=== PATIENT | male | born 1965 | race African-American/Black ===

== ENCOUNTER 2022-08-13 14:39 | Emergency (ER) | payer OTHER, BC, SELFPAY ==
[2022-08-13 14:44] VITALS: BP 197/116; PULSE 80; RESP 16; TEMP 36.3; O2SAT 99; BMI 25.3
--- NOTE | 2022-08-13 15:51 | CRLHL7_ITS ---
For Patients: As a result of the Century Cures Act, medical imaging exams and procedure reports are released immediately into your electronic medical record. You may view this report before your referring provider. If you have questions, please contact your health care provider. Indication: Base of thumb pain. Technique: Left wrist 3 views. Comparison: None. Findings: Bones: No acute fracture or aggressive osseous lesion. Alignment is normal. Joint spaces: Unremarkable. Soft tissues: Unremarkable. Impression: Unremarkable left wrist. Specifically, the 1st carpometacarpal joint and base of the thumb are unremarkable without significant degenerative changes or acute findings. Dictated by Gilberto Lemus MD @ 08/13/2022 4:57:11 PM (Electronically Signed)
--- NOTE | 2022-08-14 13:01 | ED.UPPEXIN ---
HPI - Extremity Injury (Upper) General Chief Complaint: Extremity Pain/Injury, Upper Stated Complaint: L wrist injury Time Seen by Provider: 08/13/22 15:43 History of Present Illness HPI narrative: 57-year-old man here with complaint of about 2 weeks of increasing pain at his left wrist and thumb. 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 Recently purchased what looks to be a thumb spica splint that appears to be of good quality. He wore this overnight recently and upon removing it experienced much more discomfort and felt like he just could not even move his thumb. He has also noticed some swelling at his radial wrist. There has not been a specific injury sounds more like a repetitive stress kind of situation. Is right-handed. Is not experiencing loss of sensation or altered sensation in his fingers. Had to modify some of his driving a little indicating a callus on the palm of his hand. He has not taken medications for this noting that he would not want to risk his job; this includes medications like ibuprofen even. However he did try some Voltaren cream to uncertain benefit. He did try icing but has been more comfortable with heat. Describes exacerbations of pain that go from the thumb up into the mid forearm. Related Data Home Medications Medication Instructions Recorded Confirmed hydrochlorothiazide 12.5 mg tablet 12.5 mg PO DAILY 08/13/22 08/13/22 lisinopril 40 mg tablet 40 mg PO DAILY 08/13/22 08/13/22 Allergies Allergy/AdvReac Type Severity Reaction Status Date / Time No Known Drug Allergies Allergy Verified 08/13/22 14:49 Review of Systems Status of ROS: Reports: 6 or more systems reviewed and unremarkable except as noted in History and below [facility] Social History Smoking Status: Never smoker Do you use any of these nicotine containing products: None Second hand tobacco smoke exposure: No How often do you have a drink containing alcohol: never How often do you have six or more drinks on one occasion: Never AUDIT-C Alcohol total score: 0 Non-prescribed substance use: denies use service: No Exam Narrative: Exam Narrative: Pleasant. NAD. Favoring his left hand/wrist. Well muscled forearms. Breathing easily. Flexes and extends the left elbow without apparent difficulty. Supinating and pronating the forearm also does not seem to cause much discomfort. There is a subtle swelling at the distal radius. I do not appreciate discrete bony tenderness. No deformity really at the base of the thumb. Tender to palpation over the dorsum of the thumb at the base. Flexion extension of the wrist causes pain. Hanny's positive. Const: Vital Signs, click to edit/add: Vital Signs - 24 hr 08/13/22 14:44 Temperature 97.4 F L Pulse Rate [Right Pulse Oximeter] 80 Respiratory Rate 16 Blood Pressure [Ri ght Upper Arm] 197/116 H Pulse Oximetry 99 Oxygen Delivery Me thod Room Air Documenting provider has reviewed patient's vital signs: yes Course Vital Signs Vital signs: Initial Vital Signs Temperature 97.4 F L 08/13/22 14:44 Temperature Source Temporal Artery Scan 08/13/22 14:44 Pulse Rate 80 08/13/22 14:44 Respiratory Rate 16 08/13/22 14:44 Blood Pressure 197/116 H 08/13/22 14:44 Blood Pressure Mean 143 08/13/22 14:44 Blood Pressure Position Sitting 08/13/22 14:44 Pulse Oximetry 99 08/13/22 14:44 Oxygen Delivery Method Room Air 08/13/22 14:44 Vital Signs Temperature 97.4 F L 08/13/22 14:44 Pulse Rate 80 08/13/22 14:44 Respiratory Rate 16 08/13/22 14:44 Blood Pressure 197/116 H 08/13/22 14:44 Pulse Oximetry 99 08/13/22 14:44 Oxygen Delivery Method Room Air 08/13/22 14:44 Temperature 97.4 F L 08/13/22 14:44 Pulse Rate 80 08/13/22 14:44 Respiratory Rate 16 08/13/22 14:44 Blood Pressure 197/116 H 08/13/22 14:44 Pulse Oximetry 99 08/13/22 14:44 Oxygen Delivery Method Room Air 08/13/22 14:44 MDM - Extremity Injury (Upper) MDM Narrative Medical decision making narrative: I suspect more of a de Quervain tenosynovitis. It sounds like Mr. Zapata has this as a question as well. Might be reasonable to do basic x-ray given his work; whether there might be some arthritic change the base of the thumb in particular. X-ray of the left wrist reviewed by me does not show excessive osteoarthritic change. No acute bony abnormality. Maintained joint spaces. I did reach out to Orthopedics to arrange follow-up. I would consider Mr. Zapata at this point a candidate for steroid injection in the extensor tendon. Would have him try to isolate with thumb spica splint. Unfortunately this makes it difficult to do his job; sounds like particularly loading and unloading; otherwise he has managed to compensate. See patient discharge plan Discharge Plan Discharge Clinical Impression: Pain of left thumb, De Quervain's syndrome (tenosynovitis) Patient Disposition: Home, Self-Care Condition: Stable Additional Instructions: I would consider icing. I like those screw top ice bags --fill with ice and water. Ice 2- 3 times daily over the next few days. I understand that this might not be the most comfortable thing to do. I think heat though might make this worse. Unfortunately orthopedics clinic was closed already. I did speak with Orthopedics today; specifically LEILA Toure. Anticipate a call from them tomorrow. If you do not hear from them by noon, feel free to call them. Phone number [phone] I would wear your thumb spica splint as it is persistent use that also aggravates, creates more inflammation. I anticipate you receiving a steroid injection which should settle down inflammation and quicken healing. I support your use of ibuprofen, naproxen, acetaminophen if necessary in fact would recommend either the ibuprofen or naproxen regularly in the short term though I understand your concerns. Perhaps the Voltaren cream topically can also be helpful. Prescriptions: No Action lisinopril 40 mg tablet 40 mg PO DAILY hydrochlorothiazide 12.5 mg tablet 12.5 mg PO DAILY Follow Up/Referrals: Jeff Carlos MD [Primary Care Provider] - Stand Alone Forms: [employer] Info Instructions
== END 2022-08-13 17:12 | disposition home or self-care (01) ==
PROVIDERS: Emergency Provider Family Medicine; PCP Family Medicine
DX: M65.4 Radial styloid tenosynovitis [de Quervain] (principal)
CPT/HCPCS: 73110; 99283; 99284

== ENCOUNTER 2022-09-14 10:20 | Emergency (ER) | payer BC, SELFPAY ==
[2022-09-14] VITALS (18 sets, daily range): BP systolic 103–128; BP diastolic 72–104; PULSE 62–84; RESP 18; TEMP 36.4; O2SAT 91–99; BMI 25.3
--- NOTE | 2022-09-14 10:50 | CRLHL7_ITS ---
For Patients: As a result of the Century Cures Act, medical imaging exams and procedure reports are released immediately into your electronic medical record. You may view this report before your referring provider. If you have questions, please contact your health care provider. INDICATION: Chest pain. The patient passed out at work yesterday. TECHNIQUE : Two-view chest x-ray. FINDINGS: Clear lungs. Normal heart size and pulmonary vascularity. The included skeleton is unremarkable. IMPRESSION: Negative two-view chest x-ray. Dictated by Emmanuel Allen MD @ 09/14/2022 11:37:09 AM (Electronically Signed)
--- NOTE | 2022-09-14 11:07 | ED.CHESTPAIN ---
HPI - Chest Pain General Date Seen: 09/14/22 Chief Complaint: Chest Pain Stated Complaint: Passed out yesterday, chest discomfort earlier Time Seen by Provider: 09/14/22 10:39 Source: patient Mode of arrival: ambulatory Limitations: no limitations History of Present Illness HPI narrative: Patient is a 49-year-old gentleman who presents here for evaluation of chest pain and syncope, he had chest pain with a syncopal episode yesterday, he initially went to the [facility], but was sent over to the emergency room for further assessment. He came here by private vehicle, he did have some chest discomfort in the morning. Yesterday had the chest discomfort no and then started walking, and had a syncopal episode where he passed out for few seconds. He notes that he did not hit his head, came to and otherwise felt normal after this. He generally gets the chest pain when he sits down lays back, it has never been exertionally base. He takes Pepto-Bismol and says the pain gets better, it almost feels like it is acid indigestion. He reminds me 2 years ago in 2020 he came in for a similar episode, also tied to syncope, his troponins at that point were elevated, and he went to [facility] for evaluation. There he had a CT angiogram which showed that he had normal coronary arteries, and they sent him home. They told him that he should take aspirin but he is not taking these. Cardiac risk factors include a history of hypertension, family history of coronary artery disease, at an early age. Smoking, and male. He does not have hyperlipidemia, or diabetes. Denies a history of illicit drug use. No previous history of pulmonary embolism, he is not taking any medications for the heartburn. MD complaint: chest pain Pain location: substernal and right chest Severity: moderate Relieving factors: antacids Exacerbating factors: supine Treatment prior to arrival: none Risk Factors Coronary artery disease risk factors: smoking history and hypertension Thoracic aortic dissection risk factors: none Related Data Home Medications Medication Instructions Recorded Confirmed hydrochlorothiazide 12.5 mg tablet 12.5 mg PO DAILY 08/13/22 09/13/22 lisinopril 40 mg tablet 40 mg PO DAILY 08/13/22 09/13/22 Allergies Allergy/AdvReac Type Severity Reaction Status Date / Time No Known Drug Allergies Allergy Verified 09/13/22 09:03 Review of Systems Status of ROS Reports: 10 or more systems reviewed and unremarkable except as noted in History and below [facility] Medical History Non-ST elevation myocardial infarction (NSTEMI) ?I21.4 - Non-ST elevation (NSTEMI) myocardial infarction (ICD-10) Social History Smoking Status: Current every day smoker What tobacco products do you use: cigarettes Smoking packs per day: 0.25 Smoking cigarettes per day: 5.0 Years smoked: 40 Smoking pack-years: 10.00 Do you use any of these nicotine containing products: None Second hand tobacco smoke exposure: Yes How often do you have a drink containing alcohol: never How often do you have six or more drinks on one occasion: Never AUDIT-C Alcohol total score: 0 Non-prescribed substance use: denies use service: No Exam Narrative Exam Narrative: Patient is seen in room 5, very nice gentleman. He is wearing a splint on his left arm, consistent with tenosynovitis. Patient is speaking normally, no problem with slurring words, oriented x3. Head eyes ears nose and throat exam show equal pupils, no scleral icterus, extraocular muscles are normal, no facial droop, speech is normal, trachea normal and midline. Thyroid normal midline palpable not enlarged. Chest shows symmetrical rise bilaterally, normal auscultation with no wheezes, no increased work of breathing, no overt bruising or lesions seen, no tenderness is noted on auscultation. Heart sounds normal with no S3-S4 no murmurs clicks or gallops. Abdomen shows no obvious masses or hepatosplenomegaly, no organomegaly, bowel sounds are normal in all quadrants. No tenderness is noted also in all quadrants. Upper and lower extremities show normal power, normal range of motion, pulses are normal, sensations normal, fine motor movements are normal, pelvis is stable to rocking. Cervical spine shows normal range of motion, and palpably not tender. Thoracic spine shows normal range of motion, and palpably not tender, lumbar spine shows no tenderness to palpation percussion and is otherwise normal range of motion. Skin shows no rashes, petechiae or eccymosis. Const Vital Signs, click to edit/add: Vital Signs - 24 hr 09/14/22 10:33 09/14/22 10:46 09/14/22 11:00 Temperature 97.6 F Pulse Rate 84 79 Pulse Rate [Pulse Oximeter] 77 Respiratory Rate 18 Blood Pressure Blood Pressure [Left Upper Arm] 125/78 Pulse Oximetry 97 96 99 Oxygen Delivery Method Room Air 09/14/22 11:01 09/14/22 11:02 09/14/22 11:30 Temperature Pulse Rate 74 75 70 Pulse Rate [Pulse Oximeter] Respiratory Rate Blood Pressure 105/72 Blood Pressure [Left Upper Arm] Pulse Oximetry 99 99 99 Oxygen Delivery Method 09/14/22 11:31 09/14/22 11:32 09/14/22 12:00 Temperature Pulse Rate 70 71 67 Pulse Rate [Pulse Oximeter] Respiratory Rate Blood Pressure 103/77 Blood Pressure [Left Upper Arm] Pulse Oximetry 99 99 98 Oxygen Delivery Method 09/14/22 12:01 09/14/22 12:02 09/14/22 12:30 Temperature Pulse Rate 68 67 62 Pulse Rate [Pulse Oximeter] Respiratory Rate Blood Pressure 122/84 Blood Pressure [Left Upper Arm] Pulse Oximetry 98 97 99 Oxygen Delivery Method 09/14/22 12:31 09/14/22 13:00 09/14/22 13:01 Temperature Pulse Rate 73 62 69 Pulse Rate [Pulse Oximeter] Respiratory Rate Blood Pressure 113/83 128/99 H Blood Pressure [Left Upper Arm] Pulse Oximetry 99 98 99 Oxygen Delivery Method 09/14/22 13:02 09/14/22 13:30 09/14/22 13:31 Temperature Pulse Rate 65 71 73 Pulse Rate [Pulse Oximeter] Respiratory Rate Blood Pressure 123/104 H Blood Pressure [Left Upper Arm] Pulse Oximetry 91 99 99 Oxygen Delivery Method Documenting provider has reviewed patient's vital signs: yes Course Course Hospital Course: Patient has remained pain-free troponins x2 are negative, point of care ultrasound did not show any acute abnormalities, of his heart. EKG was normal, with no change from previous, D-dimer was very minimally elevated at 0.51 but age adjusted was normal. I spoke to cardiology at [facility] Dr.Al Still about the patient, he suggested a outpatient cardiac follow-up, and also his Zio patch repeated. An echo. I then spoke to the patient's primary care physician at [facility], he will follow this up and get the patient scheduled, will start him on Prilosec, 20 mg a day, he has further episodes or issues then he will come back and be seen. Vital Signs Vital signs: Initial Vital Signs Respiratory Effort Normal 09/14/22 10:21 Respiratory Depth Normal 09/14/22 10:21 Respiratory Pattern Normal 09/14/22 10:21 Vital Signs Temperature 97.6 F 09/14/22 10:33 Pulse Rate 77 09/14/22 10:33 Respiratory Rate 18 09/14/22 10:33 Blood Pressure 125/78 09/14/22 10:33 Pulse Oximetry 97 09/14/22 10:33 Oxygen Delivery Method Room Air 09/14/22 10:33 Temperature 97.6 F 09/14/22 10:33 Pulse Rate 73 09/14/22 13:31 Respiratory Rate 18 09/14/22 10:33 Blood Pressure 123/104 H 09/14/22 13:31 Pulse Oximetry 99 09/14/22 13:31 Oxygen Delivery Method Room Air 09/14/22 10:33 MDM - Chest Pain MDM Narrative Medical decision making narrative: During the evaluation of this patient I considered multiple differential diagnosis is. The life-threatening differential diagnosis include coronary disease/NC, pulmonary embolism, pneumothorax, pneumonia, and aortic dissection. Other differential diagnosis included but were not limited to pericarditis, myocarditis, chest wall pain, GERD, esophageal rupture, rib fracture contusion, pleurisy, as well as other etiologies. Life-threatening differential diagnosis considered include: Cardiac arrhythmia, acute blood loss, and intracranial bleed. Other differential diagnosis include but are not limited to vasovagal syncope, orthostatic syncope, seizure, as well as other etiologies Medical Records Data Attestation: I reviewed the patient's medical records. Lab Data Attestation: I reviewed the patient's lab results. Labs: Lab Results 09/14/22 09/14/22 Range/Units 11:05 12:55 WBC 8.64 (4.50-11.00) K/uL RBC 5.03 (4.30-5.90) m/uL Hgb 15.3 (13.5-17.5) gm/dL Hct 46.0 (37.0-53.0) % MCV 92 (80-100) fL MCH 30 (26-34) pg MCHC 33 (32-36) gm/dL RDW Coeff of Garrett 13.1 (11.5-15.5) % Plt Count 277 (140-440) K/uL Neut % (Auto) 66.9 (42.0-72.0) % Lymph % (Auto) 24.5 (20-44) % Crawford % (Auto) 6.8 (0.0-11.0) % Eos % (Auto) 1.5 (0.0-7.0) % Baso % (Auto) 0.2 (0.0-3.0) % Neut # (Auto) 5.77 (1.7-7.0) K/uL Lymph # (Auto) 2.12 (0.90-2.90) K/uL Crawford # (Auto) 0.60 (0.00-0.90) K/UL Eos # (Auto) 0.13 (0.00-0.50) K/uL Baso # (Auto) 0.02 (0.00-0.30) K/uL INR 0.99 (0.91-1.10) APTT 32 (23-33) Seconds D-Dimer Quant (PE/DVT) 0.51 H (0.00-0.50) ug/ml Sodium 139 (135-149) mmol/L Potassium 4.5 (3.6-5.1) mmol/L Chloride 107 (96-114) mmol/L Carbon Dioxide 25 (20-32) mmol/L BUN 28 (7-30) mg/dL Creatinine 1.1 (0.5-1.5) mg/dL Estimated Creat Clear 85.11 Estimated GFR 78 ml/min Glucose 115 (60-115) mg/dL Calcium 9.5 (8.4-10.6) mg/dL Total Bilirubin 0.4 (0.1-1.5) mg/dL Direct Bilirubin 0.2 (0.0-0.5) mg/dL AST 26 (12-35) U/L ALT 32 (4-50) U/L Alkaline Phosphatase 86 (40-150) U/L C-Reactive Protein 0.8 (0.5-1.0) mg/dL NT-Pro-B Natriuret Pep 53 pg/mL Total Protein 7.7 (6.0-8.3) g/dL Albumin 4.2 (3.3-5.0) g/dL Lipase 66 (23-300) U/L SARS-CoV-2 (PCR) Negative SARS-CoV-2 (Negative) Influenza Type A (PCR) Negative PCR FLU A (Negative) Influenza Type B (PCR) Negative PCR FLU B (Negative) RSV (PCR) Negative PCR RSV (Negative) POC Troponin I 0.00 L 0.00 L (0.01-0.04) ng/ml Imaging Data Chest x-ray: Attestation: I have reviewed the pertinent imaging results. My impression: No acute finding Radiologist's impression: Patient: STEPHANIE GALEANO Facility:?[facility] Patient ID:?[id number] Site Patient ID:?[id number]. Site :?[id number] Study:?XRay Chest 2V-09/14/2022 11:21:27 AM Ordering Physician:Radha Loja Final Report: INDICATION: Chest pain. The patient passed out at work yesterday. TECHNIQUE : Two-view chest x-ray. FINDINGS: Clear lungs. Normal heart size and pulmonary vascularity. The included skeleton is unremarkable. IMPRESSION: Negative two-view chest x-ray. Dictated by Emmanuel Allen MD @ 09/14/2022 11:37:09 AM (Electronic Signature) ECG Data Attestation: I personally reviewed and interpreted this ECG as follows: ECG interpretation date: 09/14/22 ECG interpretation time: 11:15 Prior ECG tracings: available for review Interpretation: EKG shows normal sinus rhythm, no acute ST wave changes notable. QRS QT and SD intervals are normal, comparison to previous EKG no acute changes. Discharge Plan Discharge Clinical Impression: Syncope, Gastroesophageal reflux disease, Chest pain Patient Disposition: Home, Self-Care Condition: Stable Instructions: Chest Pain (DC), Syncope (ED), Noncardiac Chest Pain (ED) Additional Instructions: Home rest would recommend smoking cessation, I also think that taking Prilosec 20 mg a day would be a good thing here for your stomach, please take this for 30 days in know that it takes probably 5-6 days to really start working. Slowing down on caffeine and alcohol or also good things to do help with this. For the reason of the passing out, I spoke to Cardiology and they would like you to repeat the Zio patch, and also get a formal echo, I did speak with [facility], and get you set up for follow-up for this. Return here if increasing chest pain shortness of breath or other symptoms such as passing out. Prescriptions: No Action lisinopril 40 mg tablet 40 mg PO DAILY hydrochlorothiazide 12.5 mg tablet 12.5 mg PO DAILY Follow Up/Referrals: Jeff Carlos MD [Referring] - Stand Alone Forms: [facility] Info Instructions Procedures Ultrasound Cardiac exam #1: Anatomical areas examined: subxiphoid, parasternal long, parasternal short and apical 4 chamber Indications: chest pain Exam type: limited transthoracic echocardiogram Impression: negative exam
[2022-09-14 11:19] LABS: Basophils Absolute Auto 0.02 K/uL (0.00-0.30); Basophils Percent Auto 0.2 % (0.0-3.0); Eosinophils Absolute Auto 0.13 K/uL (0.00-0.50); Eosinophils Percent Auto 1.5 % (0.0-7.0); Hemoglobin* 15.3 gm/dL (13.5-17.5); Immature Granulocytes Abs Auto 0.01 K/uL (0.00-0.30); Immature Granulocytes Pct Auto 0.1 %; Lymphocytes Absolute Auto 2.12 K/uL (0.90-2.90); Lymphocytes Percent Auto 24.5 % (20-44); Mean Corpuscular HGB Conc 33 gm/dL (32-36); Mean Corpuscular Hemoglobin 30 pg (26-34); Mean Corpuscular Volume 92 fL (80-100); Monocytes Percent Auto 6.8 % (0.0-11.0); Neutrophils Absolute Auto 5.77 K/uL (1.7-7.0); Neutrophils Percent Auto 66.9 % (42.0-72.0); Platelet Count* 277 K/uL (140-440); RDW Coefficient of Variation % 13.1 % (11.5-15.5); Red Blood Count 5.03 m/uL (4.30-5.90); White Blood Count* 8.64 K/uL (4.50-11.00)
[2022-09-14] MEDS: PANTOPRAZOLE SODIUM 40 MG INJ IVP (11:24)
[2022-09-14] MEDS: ASPIRIN 81 MG TAB.CHEW 324 MG PO (11:24)
[2022-09-14] MEDS: 0.9 % SODIUM CHLORIDE 1000 ml 1,000 ML IV (11:25)
[2022-09-14 11:32] LABS: Albumin* 4.2 g/dL (3.3-5.0); Chloride* 107 mmol/L (96-114)
[2022-09-14 11:33] LABS: INR 0.99 (0.91-1.10); Potassium* 4.5 mmol/L (3.6-5.1); Prothrombin Time 13.7 Seconds; Sodium* 139 mmol/L (135-149)
[2022-09-14 11:34] LABS: Creatinine* 1.1 mg/dL (0.5-1.5); Est. Creatinine Clearance* 85.11; Estimated Glomerular Filt Rate 78 ml/min; Partial Thromboplastin Time* 32 Seconds (23-33)
[2022-09-14 11:35] LABS: Alanine Aminotransferase* 32 U/L (4-50); Alkaline Phosphatase* 86 U/L (40-150); Aspartate Amino Transferase* 26 U/L (12-35); Bilirubin Direct* 0.2 mg/dL (0.0-0.5); Bilirubin Total* 0.4 mg/dL (0.1-1.5); Blood Urea Nitrogen* 28 mg/dL (7-30); Carbon Dioxide* 25 mmol/L (20-32); Glucose* 115 mg/dL (60-115); Lipase* 66 U/L (23-300); Total Protein* 7.7 g/dL (6.0-8.3)
[2022-09-14 11:36] LABS: Calcium* 9.5 mg/dL (8.4-10.6); D Dimer Quantitative* 0.51 ug/ml (0.00-0.50)
[2022-09-14 11:38] LABS: C Reactive Protein* 0.8 mg/dL (0.5-1.0)
[2022-09-14 11:48] LABS: NT Pro B Type NatriureticPept* 53 pg/mL
[2022-09-14 11:59] LABS: PCR FLU A Negative PCR FLU A (Negative); PCR FLU B Negative PCR FLU B (Negative); PCR RSV Negative PCR RSV (Negative)
[2022-09-14 12:04] LABS: Slide Review Reflex No
[2022-09-14 12:08] LABS: SARS PCR* Negative SARS-CoV-2 (Negative)
== END 2022-09-14 14:11 | disposition home or self-care (01) ==
PROVIDERS: Emergency Provider Family Medicine; PCP Student in an Organized Health Care Education/Training Program
DX: R07.9 Chest pain, unspecified (principal); R55 Syncope and collapse; K21.9 Gastro-esophageal reflux disease without esophagitis
CPT/HCPCS: 36415; 71046; 80048; 80076; 83690; 83880; 84484; 85025; 85379; 85610; 85730; 86140; 87631; 93005; 93308; 96361; 96374; 99284; 99285; A9270; C9113; J7030

== ENCOUNTER 2022-11-02 08:30 | Outpatient (RCR) | payer OTHER, BC, SELFPAY | END 2023-01-18 15:52 | disposition home or self-care (01) | PROVIDERS: PCP Family Medicine; Visit Provider Physician Assistant Surgical | DX: M65.4 Radial styloid tenosynovitis [de Quervain] (principal); Z51.89 Encounter for other specified aftercare | CPT/HCPCS: 97033; 97035; 97140; 97165; 97530 ==

== ENCOUNTER 2022-12-05 06:49 | Day surgery (SDC) | payer OTHER, BC, SELFPAY ==
[2022-12-05] VITALS (10 sets, daily range): BP systolic 122–160; BP diastolic 83–99; PULSE 61–80; RESP 16; TEMP 36.3; O2SAT 98–100; BMI 25.2
--- NOTE | 2022-12-05 07:14 | SUR.PREOP ---
SAME DAY SURGERY LOCAL INJECTION SITE VERIFICATION WAS PERFORMED BY SURGEON/PA AND PATIENT PRIOR TO LOCAL ANESTHETIC BEING INJECTED TO OPERATIVE SITE.
[2022-12-05] MEDS: ETHYL CHLORIDE 1 APPLICATION 1 APPLIC TOPICAL (07:15)
[2022-12-05] MEDS: BUPIVACAINE 0.5% 30 ML INJECTION (07:15)
--- NOTE | 2022-12-05 08:07 | P.ORPRC_ITS ---
Procedure Note Date of procedure: 12/05/22 Procedure: PREOPERATIVE DIAGNOSES: 1. Left de Quervain tenosynovitis-recalcitrant to nonoperative management POSTOPERATIVE DIAGNOSES: 1. Left de Quervain tenosynovitis-recalcitrant to nonoperative management NAME OF OPERATION: 1. Left de Quervain open 1st dorsal extensor compartment release with tenosynovectomy SURGEON: Dwight Angel MD COIL SHAPER: Mesfin Landrum PA-C - Of note, an certified surgical tech/first assistant was critical for this case to aide in patient positioning, limb manipulation, tissue retraction, closure, & splinting. ANESTHESIA: Local anesthetic (via 50:50 mixture of 0.5% bupivacaine plain and 2% lidocaine with epi) 8ml total EBL: 2 mL IMPLANTS: None. TOURNIQUET: None INDICATIONS: The patient is a pleasant, 57-year-old male who has battled left de Quervain tenosynovitis for a number of months. They have tried and failed nonoperative management including cortisone injection, bracing, medicines, ice, activity modification, etc. Therefore, surgery was indicated. FINDINGS: Abundant tenosynovitis along the left upper extremity 1st dorsal extensor compartments. Thickening to the 1st compartment sheath. A sub sheath between the APL and EPB was encountered. PROCEDURE: Following a thorough discussion of risks, benefits, and alternatives, consent was obtained and the operative extremity was marked. The patient was brought to the operating room and placed supine on the operating table. Induction of anesthesia was achieved. Appropriate time out was performed identifying proper patient, site and procedure. The left upper extremity was prepped and draped in the appropriate sterile fashion using ChloraPrep prep. A longitudinal incision was made just proximal to the radial styloid. Sharp incision through skin and blunt dissection through subcutaneous tissue allowed us to identify and protect the crossing neurologic structures including the superficial branch of the radial nerve. The 1st dorsal extensor compartment was released on the more dorsal aspect. EPL and APB tendons were found to be within their own compartments. These were completely released and the tenosynovitis was resected along the tendons. The intervening septum was resected. At this stage, the wound was thoroughly irrigated with normal saline. Closure performed with 3-0 Vicryl subcutaneous and 4-0 Monocryl for subcuticular closure. Dressings were applied. The patient was awoken from anesthesia and transferred to PACU in stable condition. PLAN: 1. Elevate operative extremity. 2. Ice, acetominphen, ibuprofen, and/or oxycodone PRN. 3. Follow up with PA visit in 7-10 days for wound check and OT initiation PRN.
[2022-12-05] MEDS: BUPIVACAINE 0.5% 30 ML 20 ML INJECTION (08:10)
== END 2022-12-05 08:32 | disposition home or self-care (01) ==
PROVIDERS: PCP Student in an Organized Health Care Education/Training Program; Visit Provider Orthopaedic Surgery Sports Medicine
PROC: (CPT 25000; principal; 2022-12-05 07:45)
DX: M65.4 Radial styloid tenosynovitis [de Quervain] (principal)
CPT/HCPCS: 25000; J0665

== ENCOUNTER 2023-04-09 07:30 | Outpatient (RCR) | payer OTHER, SELFPAY | END 2023-08-07 23:59 | disposition home or self-care (01) | PROVIDERS: PCP Student in an Organized Health Care Education/Training Program; Visit Provider Physician Assistant Surgical | DX: Z02.6 Encounter for examination for insurance purposes (principal); M65.4 Radial styloid tenosynovitis [de Quervain]; Z51.89 Encounter for other specified aftercare | CPT/HCPCS: 97035; 97110; 97140; 97165; 97530; X5282 ==

== ENCOUNTER 2023-09-28 12:04 | Outpatient (CLI) | payer BC, SELFPAY ==
--- OUTSIDE RECORDS SUMMARY | 2023-09-29 05:59 | XMS_ITS | Clinical Summary ---
Author Name Unknown Organization [facility] Address [place], [place] [address] Care Team Providers Care Narrow Fabric Loom Fixer Name Role Phone Laci Davis DO Primary Care Provider [phone] Allergies No known active allergies Medications Medication [...] patch, one 5 sec run Non-ST elevation [place] (NSTEMI) 04/27/2021 Chronic pain of right knee [...] Name Status Comments Brother 1 (Age 57) [place] Brother 2 Alive Daughter 1 Becka Alive Daughter 2 Mystique Alive Father (Age 60) [place] Maternal Grandfather Maternal Grandmother Mother Other Unknown [...] DT Respiratory Rate 16 06/13/2017 2:42 PM DIRECTOR OF RETAIL Oxygen Saturation 100% 09/26/2021 3:27 PM CDT [...] REFLEX MEASURED LDL Routine 04/28/2021 10:01 AM DIRECTOR OF RETAIL Family history of early CAD from Last 3 Months or Most Recently Relevant to Health Maintenance Results * (ABNORMAL) LIPID PANEL W REFLEX MEASURED LDL (04/28/2021 10:01 AM DIRECTOR OF RETAIL) CHOLESTEROL,TOTAL 203(H) 100 - 199 mg/dL 04/28/2021 5:50 PM DIRECTOR OF RETAIL [facility] TRAL LABORATORY TRIGLYCERIDES 163(H) <150 mg/dL 04/28/2021 5:50 PM DIRECTOR OF RETAIL [facility] HDL CHOLESTEROL 32(L) >40 mg/dL 5:50 PM DIRECTOR OF RETAIL [facility] TRAL LABORATORY NON-HDL CHOLESTEROL 171(H) <145 mg/dl 04/28/2021 5:50 PM DIRECTOR OF RETAIL [facility] CHOL/HDL RATIO 6.34(H) <4.50 04/28/2021 5:50 PM DIRECTOR OF RETAIL [facility] TR[facility] LDL CHOLESTEROL 138(H) <=130 mg/dL 04/28/2021 5:50 PM DIRECTOR OF RETAIL [facility] TR[facility] VLDL CHOLESTEROL 33(H) <=30 mg/dL 04/28/2021 5:50 PM DIRECTOR OF RETAIL [facility] TR[facility] PROVIDER ORDERED STATUS RANDOM 04/28/2021 5:50 PM DIRECTOR OF RETAIL [facility] TR[facility] LABORAT[facility] Blood BLOOD SPECIMEN / Unknown Butterfly / Unknown 04/28/2021 10:01 AM DIRECTOR OF RETAIL 04/28/2021 10:01 AM DIRECTOR OF RETAIL Laci Davis DO [facility] [address] [place] [address], from Last 3 Months or Most Recently Relevant to Health Maintenance Care Teams Narrow Fabric Loom Fixer Relationship Specialty Start Date End Date Laci Davis [place] [address] [address] PCP - General Family Practice 09/14/22
== END 2023-09-28 12:05 | disposition home or self-care (01) ==
LOC: AMB 09-29 05:57
PROVIDERS: PCP Student in an Organized Health Care Education/Training Program; Visit Provider Family Medicine
DX: R07.89 Other chest pain (principal)
CPT/HCPCS: A0425; A0427

== ENCOUNTER 2023-09-28 12:34 | Emergency (ER) | payer BC, SELFPAY ==
[2023-09-28] VITALS (14 sets, daily range): BP systolic 107–120; BP diastolic 72–93; PULSE 72–91; RESP 16; TEMP 35.3; O2SAT 93–97; BMI 25.1
--- NOTE | 2023-09-28 12:44 | ED_ITS ---
HPI - Chest Pain General Chief Complaint: Chest Pain Stated Complaint: chest pain Time Seen by Provider: 09/28/23 12:34 History of Present Illness HPI narrative: This 58-year-old male comes in by ambulance from urgent care where he presented with report of chest pains that were occurring and lasting for about 2 or 3 minutes. He states that he does have a history of prior coronary artery disease and there is a report of an NSTEMI in the past however he states he has not had any angiogram. He is taking some blood pressure medications. Prior to today he was not having any chest pain but his symptoms today are similar to what he had before when he had coronary artery syndrome in the past. Today he was doing some moderately strenuous activity when chest pain came on. He states that it has been coming and going since then. He reports some diaphoresis, lightheadedness, and shortness of breath. He did not have any nausea or vomiting. Upon arrival here he states that he is currently having chest discomfort at 6/10 in severity. Related Data Home Medications Medication Instructions Recorded Confirmed lisinopril 40 mg tablet 40 mg PO DAILY 08/13/22 09/28/23 ibuprofen 200 mg capsule 400 mg PO Q8H PRN 12/18/22 09/28/23 hydrochlorothiazide 12.5 mg tablet 25 mg PO DAILY 09/28/23 09/28/23 Previous Rx's Medication Instructions Recorded rosuvastatin 10 mg tablet (Crestor) 10 mg PO DAILY #30 tabs 09/28/23 Allergies Allergy/AdvReac Type Severity Reaction Status Date / Time No Known Drug Allergies Allergy Verified 09/28/23 12:56 Review of Systems Status of ROS Reports: 10 or more systems reviewed and unremarkable except as noted in History and below Narrative Constitutional: No fevers, no weight gain or loss. Eyes: No discharge. No vision changes. HENT: No congestion, no sore throat, no ear pain. Cardiovascular: No palpitations. Chest pain as described above. Respiratory: No shortness of breath, no wheezes, no cough. Gastrointestinal: No abdominal pain, no vomiting, no diarrhea. Genitourinary: No dysuria, no hematuria. Musculoskeletal: Normal range of motion. Skin: No rashes, no pruritis. Neurological: No dizziness, weakness, sensory change, speech change. Endo/Heme/Allergies: No bruising or bleeding. No polydipsia. Pysch: no suicidality, no anxiety, no insomnia. All other systems reviewed and are negative. [facility] Medical History Non-ST elevation myocardial infarction (NSTEMI) ?I21.4 - Non-ST elevation (NSTEMI) myocardial infarction (ICD-10) Surgical History De Quervain's tenosynovitis, left (12/05/22) ?M65.4 - Radial styloid tenosynovitis [de Quervain] (ICD-10) Social History Smoking Status: Current every day smoker What tobacco products do you use: cigarettes Smoking packs per day: 0.25 Smoking cigarettes per day: 5.0 Years smoked: 40 Smoking pack-years: 10.00 Do you use any of these nicotine containing products: None Second hand tobacco smoke exposure: Yes How often do you have a drink containing alcohol: never How often do you have six or more drinks on one occasion: Never AUDIT-C Alcohol total score: 0 Non-prescribed substance use: denies use service: No Exam Narrative Exam Narrative: Constitutional: Well-developed, well-nourished, no acute distress. HEENT: Normocephalic, atraumatic. Neck: Normal range of motion. Nontender. Supple. Heart: Regular. No murmurs. Normal rate. Intact distal pulses. Lungs: Clear to auscultation. No wheezes, rhonchi, or rales. Abdomen: Normal bowel sounds. Nontender. No rebound tenderness. Genitalia: Deferred. Back: No midline tenderness. Normal range of motion. Extremities: Normal range of motion. No injury. Skin: Intact. No rash. Warm. No erythema or pallor. Neurologic: No altered sensation. No weakness. Alert and oriented. Psychiatric: No suicidality. No anxiety or depression. No insomnia. Nursing notes and vitals signs are reviewed. Const Vital Signs, click to edit/add: Vital Signs - 24 hr 09/28/23 12:57 09/28/23 12:59 09/28/23 13:00 Temperature 95.6 F L Pulse Rate 81 85 Pulse Rate [Pulse Oximeter] 89 Respiratory Rate 16 Blood Pressure Blood Pressure [Left Upper Arm] 111/76 Pulse Oximetry 95 94 94 Oxygen Delivery Method Room Air 09/28/23 13:00 09/28/23 13:02 09/28/23 13:03 Temperature Pulse Rate 81 83 Pulse Rate [Pulse Oximeter] Respiratory Rate Blood Pressure 114/74 Blood Pressure [Left Upper Arm] Pulse Oximetry 97 95 97 Oxygen Delivery Method 09/28/23 13:15 09/28/23 13:17 09/28/23 13:30 Temperature Pulse Rate 87 72 82 Pulse Rate [Pulse Oximeter] Respiratory Rate Blood Pressure 119/90 H Blood Pressure [Left Upper Arm] Pulse Oximetry 94 97 95 Oxygen Delivery Method 09/28/23 13:31 09/28/23 13:45 09/28/23 13:47 Temperature Pulse Rate 77 91 82 Pulse Rate [Pulse Oximeter] Respiratory Rate Blood Pressure 107/72 115/85 Blood Pressure [Left Upper Arm] Pulse Oximetry 96 97 97 Oxygen Delivery Method 09/28/23 14:00 09/28/23 14:01 Temperature Pulse Rate 85 83 Pulse Rate [Pulse Oximeter] Respiratory Rate Blood Pressure 120/93 H Blood Pressure [Left Upper Arm] Pulse Oximetry 96 93 Oxygen Delivery Method Course Vital Signs Vital signs: Initial Vital Signs Respiratory Effort Normal, Spontaneous 09/28/23 12:43 Respiratory Depth Normal 09/28/23 12:43 Respiratory Pattern Normal 09/28/23 12:43 Vital Signs Temperature 95.6 F L 09/28/23 12:57 Pulse Rate 89 09/28/23 12:57 Respiratory Rate 16 09/28/23 12:57 Blood Pressure 111/76 09/28/23 12:57 Pulse Oximetry 95 09/28/23 12:57 Oxygen Delivery Method Room Air 09/28/23 12:57 Temperature 95.6 F L 09/28/23 12:57 Pulse Rate 83 09/28/23 14:01 Respiratory Rate 16 09/28/23 12:57 Blood Pressure 120/93 H 09/28/23 14:01 Pulse Oximetry 93 09/28/23 14:01 Oxygen Delivery Method Room Air 09/28/23 12:57 MDM - Chest Pain MDM Narrative Medical decision making narrative: This patient comes in reporting some chest discomfort with exertion that occurred a couple hours prior to arrival. He just had that 1 episode which is new for him today. He states that he has not had any exertional symptoms prior to this except for a year 2 ago when he had similar symptoms at which time he had a CT angiogram that returned with clear results. Today his EKG and troponin return in normal limits. He is asymptomatic. He did receive aspirin EN route here. I did contact the canvas goods fabricator on-call at [facility], Dr. Vila, who recommended aspirin and a statin drug. The patient is already taking antihypertensives. I encouraged him to stop smoking. Someone from the cardiology clinic there will contact him for close follow-up. Lab Data Labs: Lab Results 09/28/23 09/28/23 Range/Units 12:43 12:54 WBC 10.36 (4.50-11.00) K/uL RBC 5.34 (4.30-5.90) m/uL Hgb 16.5 (13.5-17.5) gm/dL Hct 50.6 (37.0-53.0) % MCV 95 (80-100) fL MCH 31 (26-34) pg MCHC 33 (32-36) gm/dL RDW Coeff of Garrett 13.2 (11.5-15.5) % Plt Count 270 (140-440) K/uL Neut % (Auto) 62.3 (42.0-72.0) % Lymph % (Auto) 29.3 (20-44) % Snyder % (Auto) 7.2 (0.0-11.0) % Eos % (Auto) 0.7 (0.0-7.0) % Baso % (Auto) 0.2 (0.0-3.0) % Neut # (Auto) 6.45 (1.7-7.0) K/uL Lymph # (Auto) 3.04 H (0.90-2.90) K/uL Snyder # (Auto) 0.70 (0.00-0.90) K/UL Eos # (Auto) 0.07 (0.00-0.50) K/uL Baso # (Auto) 0.02 (0.00-0.30) K/uL Abs Immat Gran (auto) 0.03 (0.00-0.30) K/uL Imm/Tot Granulo (auto) 0.3 % Sodium 145 (135-149) mmol/L Potassium 4.3 (3.6-5.1) mmol/L Chloride 108 (96-114) mmol/L Carbon Dioxide 29 (20-32) mmol/L Anion Gap 8 (7-15) mEq/L BUN 32 H (7-30) mg/dL Creatinine 1.8 H (0.5-1.5) mg/dL Estimated Creat Clear 48.50 Estimated GFR 43 ml/min Glucose 145 H (60-115) mg/dL Calcium 9.8 (8.4-10.6) mg/dL POC Troponin I 0.01 (0.01-0.04) ng/ml ECG Data Attestation: I personally reviewed and interpreted this ECG as follows: Interpretation: Normal sinus rhythm. Rate is 77 beats per minute. There are no ST or T-wave abnormalities. Discharge Plan Discharge Clinical Impression: Stable angina Patient Disposition: Home, Self-Care Condition: Stable Additional Instructions: Take medication as prescribed. Take a aspirin tablet 81 mg daily. Smoking cessation strongly advised. Someone from cardiology clinic will call for ongoing evaluation and treatment. Return if worsening. Prescriptions: New rosuvastatin [Crestor] 10 mg tablet 10 mg PO DAILY Qty: 30 2RF No Action ibuprofen 200 mg capsule 400 mg PO Q8H PRN lisinopril 40 mg tablet 40 mg PO DAILY hydrochlorothiazide 12.5 mg tablet 25 mg PO DAILY Follow Up/Referrals: FIDEL RASMUSSEN DO [Primary Care Provider] - Stand Alone Forms: [employer] Info Instructions
[2023-09-28 13:03] LABS: Basophils Absolute Auto 0.02 K/uL (0.00-0.30); Basophils Percent Auto 0.2 % (0.0-3.0); Eosinophils Absolute Auto 0.07 K/uL (0.00-0.50); Eosinophils Percent Auto 0.7 % (0.0-7.0); Hematocrit 50.6 % (37.0-53.0); Hemoglobin* 16.5 gm/dL (13.5-17.5); Immature Granulocytes Abs Auto 0.03 K/uL (0.00-0.30); Immature Granulocytes Pct Auto 0.3 %; Lymphocytes Absolute Auto 3.04 K/uL (0.90-2.90); Lymphocytes Percent Auto 29.3 % (20-44); Mean Corpuscular HGB Conc 33 gm/dL (32-36); Mean Corpuscular Hemoglobin 31 pg (26-34); Mean Corpuscular Volume 95 fL (80-100); Monocytes Percent Auto 7.2 % (0.0-11.0); Neutrophils Absolute Auto 6.45 K/uL (1.7-7.0); Neutrophils Percent Auto 62.3 % (42.0-72.0); Platelet Count* 270 K/uL (140-440); RDW Coefficient of Variation % 13.2 % (11.5-15.5); Red Blood Count 5.34 m/uL (4.30-5.90); White Blood Count* 10.36 K/uL (4.50-11.00)
[2023-09-28 13:07] LABS: Troponin, Point-of-Care* 0.01 ng/ml (0.01-0.04)
[2023-09-28 13:09] LABS: Slide Review Reflex No
[2023-09-28 13:15] LABS: Chloride* 108 mmol/L (96-114); Potassium* 4.3 mmol/L (3.6-5.1); Sodium* 145 mmol/L (135-149)
--- OUTSIDE RECORDS SUMMARY | 2023-09-28 13:15 | XMS_ITS | Clinical Summary ---
Author Name Unknown Organization [facility] Address [place], [place] [address] Care Team Providers Care 1St Grade Teacher Name Role Phone Laci Davis DO Primary Care Provider [phone] Allergies No known active allergies Medications Medication Sig Dispensed Refills Start Date End Date Status hydroCHLOROthiazide 12.5 mg tabletIndications:Esse ntial hypertension Take 1 Tablet (12.5 mg) by mouth once daily. 90 Tablet 1 12/06/2021 Active lisinopriL (PRINIVIL; ZESTRIL) 40 mg tabletIndications:Esse ntial hypertension Take 1 Tablet (40 mg) by mouth once daily. 90 Tablet 1 12/06/2021 Active Active Problems Problem Noted Date Diagnosed Date VT (ventricular tachycardia) 06/26/2021 Overview: Per Zio patch, one 5 sec run Non-ST elevation [place] (NSTEMI) 04/27/2021 Chronic pain of right knee 04/18/2017 Patellofemoral pain syndrome of right knee 02/11 Osteochondral lesion of right medial femoral con dyle 02/11/2017 Chondromalacia of right knee 01/19/2016 Overview: Grade 4 per ortho consult with [facility] Hyperplastic colon polyp 09/27/2014 Overview: Colonoscopy 09/2014 polyp repeat in 10 years Tobacco dependence 09/07/2014 Essential hypertension 05/20/2013 Immunizations Name Administration Dates Next Due AMB INFLUENZA, IIV4 (AGE=>6MOS) MDV (Flu Clinic Only) 01/22/2019,03/02/2017 Influenza Virus, Unspecified 03/12/2015 Influenza, IIV4 02/11/2016 Influenza,CCIIV4 PRESERV FREE 01/22/2019 Tdap 09/07/2012 Zoster (Shingrix-RZV, recombinant) 10/20/2018, Family History Medical History Relation Name Comments Heart attack Brother 1 No Known Problems Brother 2 Good Health Daughter 1 Becka ADD / ADHD Daughter 2 Mystique Heart Disease Father CHF Hypertension Father No Known Problems Sister Good Health Son Maxim Relation Name Status Comments Brother 1 (Age 57) [place] Brother 2 Alive Daughter 1 Becka Alive Daughter 2 Mystique Alive Father (Age 60) [place] Maternal Grandfather Maternal Grandmother Mother Other Unknown status, not seen since 1965 Paternal Grandfather Paternal Grandmother Sister Alive Son Maxim Alive Social History Tobacco Use Types Packs/Day Years Used Date Smoking Tobacco: Every Day Cigarettes Smokeless Tobacco: Never Tobacco Cessation:Ready to Q uit: No; Counseling Given: Yes Alcohol Use Standard Drinks/Week Comments No 0 (1 standard drink = 0.6 oz pur e alcohol) PHQ-2 Answer Date Recorded PHQ-2 TOTAL SCORE 0 06/26/2021 Social Connections Answer Date Recorded Frequency of Communication with Friends and Fami ly Not on file 05/18/2021 Financial Resource Strain Answer Date R ecorded Difficulty of Paying Living Expenses Not on file 05/18/2021 Difficulty of Paying Living Expenses Not on file 05/18/2021 Sex and Gender Information Value Date Recorded Sex Assigned at Male 11/26/2019 6:12 PM CDT Gender Identity Male 11/26/2019 6:12 PM CDT Sexual Orientation Straight 11/26/2019 6: 12 PM CDT Obstetrics History Last Filed Vital Signs Vital Sign Reading Time Taken Comments Blood Pressure 132/70 09/25/2022 9:31 AM CDT Pulse 70 09/25/2022 9:31 AM CDT Temperature 36.7 ??C (98.1 ??F) 08/15/2020 10:08 AM C DT Respiratory Rate 16 06/13/2017 2:42 PM BINDER FOLDER OPERATOR Oxygen Saturation 100% 09/26/2021 3:27 PM CDT Inhaled Oxygen Concentration - - Weight 87.5 kg (193 lb) 09/25/2022 9:31 AM CDT Height 185.4 cm (6' 1) 09/25/2022 9:31 AM CDT Body Mass Index 25.46 09/25/2022 9:31 AM CDT Plan of Treatment Health Maintenance Due Date Last Done Comments Pneumococcal series for age 6-64 (1 of 2 - PCV) 1970 HIV for age 15-65 1979 Hepatitis C screening for ag e 18-79 1982 Depression screening for age 12+ 06/26/2022 06/26/2021, 11/30/2019, 07/08/2018, Additional history exists Tetanus booster 09/07/2022 09/07/2012 COVID-19 vaccine series (2022- season) 2023 BMI (ht and wt on same day) for age 18+ 09/26/2023 09/25/2022, 09/26/2021, 06/26/2021, Additional history exists Influenza for age 50-64 01/19/2024 01/23/20 19, 01/22/2019, 03/02/2017, Additional history exists Colonoscopy through age 75 09/17/2024 09/17/2014 Lipids for age 45-75 04/28/2026 04/28/2021, 11/30/2019, 08/20/2016, Additional history exists Tdap Completed 09/07/2012 Zoster (shingles) series for age 50+ Completed 10/20/2018, 08/20/2018 Procedures Procedure Name Priority Date/Time Associated Diagnosis Comments LIPID PANEL W REFLEX MEASURED LDL Routine 04/28/2021 10:01 AM BINDER FOLDER OPERATOR Family history of early CAD from Last 3 Months or Most Recently Relevant to Health Maintenance Results * (ABNORMAL) LIPID PANEL W REFLEX MEASURED LDL (04/28/2021 10:01 AM BINDER FOLDER OPERATOR) CHOLESTEROL,TOTAL 203(H) 100 - 199 mg/dL 04/28/2021 5:50 PM BINDER FOLDER OPERATOR [facility] TRIGLYCERIDES 163(H) <150 mg/dL 04/28/2021 5:50 PM BINDER FOLDER OPERATOR [facility] HDL CHOLESTEROL 32(L) >40 mg/dL 5:50 PM BINDER FOLDER OPERATOR [facility] NON-HDL CHOLESTEROL 171(H) <145 mg/dl 04/28/2021 5:50 PM BINDER FOLDER OPERATOR [facility] CHOL/HDL RATIO 6.34(H) <4.50 04/28/2021 5:50 PM BINDER FOLDER OPERATOR [facility] LDL CHOLESTEROL 138(H) <=130 mg/dL 04/28/2021 5:50 PM BINDER FOLDER OPERATOR [facility] VLDL CHOLESTEROL 33(H) <=30 mg/dL 04/28/2021 5:50 PM BINDER FOLDER OPERATOR [facility] PROVIDER ORDERED STATUS RANDOM 04/28/2021 5:50 PM BINDER FOLDER OPERATOR [facility] Blood BLOOD SPECIMEN / Unknown Butterfly / Unknown 04/28/2021 10:01 AM BINDER FOLDER OPERATOR 04/28/2021 10:01 AM BINDER FOLDER OPERATOR Laci Davis DO [facility] [address] [place] [address], from Last 3 Months or Most Recently Relevant to Health Maintenance Care Teams 1St Grade Teacher Relationship Specialty Start Date End Date Laci [place] [address] PCP - General Family Practice 09/14/22
[2023-09-28 13:18] LABS: Anion Gap 8 mEq/L (7-15); Blood Urea Nitrogen* 32 mg/dL (7-30); Carbon Dioxide* 29 mmol/L (20-32); Creatinine* 1.8 mg/dL (0.5-1.5); Estimated Glomerular Filt Rate 43 ml/min; Glucose* 145 mg/dL (60-115)
[2023-09-28 13:19] LABS: Calcium* 9.8 mg/dL (8.4-10.6)
== END 2023-09-28 14:16 | disposition home or self-care (01) ==
PROVIDERS: Emergency Provider Emergency Medicine Emergency Medical Services; PCP Student in an Organized Health Care Education/Training Program
DX: I20.89 Other forms of angina pectoris (principal)
CPT/HCPCS: 36415; 80048; 84484; 85025; 93005; 94761; 99284

== ENCOUNTER 2024-02-09 05:07 | Emergency (ER) | payer BC, SELFPAY ==
--- OUTSIDE RECORDS SUMMARY | 2024-02-09 05:10 | XMS_ITS | Clinical Summary ---
Author Organization [facility] Address [place], [place] [address] Care Team Providers Care Farm Equipment Operator Name Role Phone Clinic, [facility] Primary Care Pr ovider Allergies No known active allergies Medications Medication [...] Date Diagnosed Date VT (ventricular tachycardia) 06/26/2021 Overview (06/26/2021): Per Zio patch, one 5 sec run Non-ST elevation [place] (NSTEMI) 04/27/2021 Chronic pain of right knee 04/18/2017 Patellofemoral pain syndrome of right knee 02/11 Osteochondral lesion of right medial femoral con dyle 02/11/2017 Chondromalacia of right knee 01/19/2016 Overview (03/16/2016): Grade 4 per ortho consult with [facility] Hyperplastic colon polyp 09/27/2014 Overview (09/27/2014): Colonoscopy 09/2014 polyp repeat in 10 years [...] Name Status Comments Brother 1 (Age 57) [place] Brother 2 Alive Daughter 1 Becka Alive Daughter 2 Mystique Alive Father (Age 60) [place] Maternal Grandfather Maternal Grandmother Mother Other Unknown [...] DT Respiratory Rate 16 06/13/2017 2:42 PM ESL TUTOR Oxygen Saturation 100% 09/26/2021 3:27 PM CDT [...] Additional history exists Tetanus booster 09/07/2022 09/07/2012 BMI (ht and wt on same day) for age 18+ 09/26/2023 09/25/2022, 09/26/2021, 06/26/2021, Additional history exists COVID-19 vaccine series ( season) 2024 Influenza for age 50-64 01/19/2024 01/23/20 19, 01/22/2019, 03/02/2017, Additional history exists Colonoscopy through age 75 09/17/2024 09/17/2014 Lipids for age 45-75 04/28/2026 04/28/2021, 11/30/2019, 08/20/2016, Additional history exists Tdap Completed 09/07/2012 Zoster (shingles) series for age 50+ Completed 10/20/2018, 08/20/2018 Procedures Procedure Name Priority Date/Time Associated Diagnosis Comments LIPID PANEL W REFLEX MEASURED LDL Routine 04/28/2021 10:01 AM ESL TUTOR Family history of early CAD from Last 3 Months or Most Recently Relevant to Health Maintenance Results * (ABNORMAL) LIPID PANEL W REFLEX MEASURED LDL (04/28/2021 10:01 AM ESL TUTOR) CHOLESTEROL,TOTAL 203(H) 100 - 199 mg/dL 04/28/2021 5:50 PM ESL TUTOR [facility] TRAL LABORATORY TRIGLYCERIDES 163(H) <150 mg/dL 04/28/2021 5:50 PM ESL TUTOR [facility] HDL CHOLESTEROL 32(L) >40 mg/dL 5:50 PM ESL TUTOR [facility] TRAL LAB[facility] NON-HDL CHOLESTEROL 171(H) <145 mg/dl 04/28/2021 5:50 PM ESL TUTOR [facility] CHOL/HDL RATIO 6.34(H) <4.50 04/28/2021 5:50 PM ESL TUTOR [facility] LDL CHOLESTEROL 138(H) <=130 mg/dL 04/28/2021 5:50 PM ESL TUTOR [facility] VLDL CHOLESTEROL 33(H) <=30 mg/dL 04/28/2021 5:50 PM ESL TUTOR [facility] PROVIDER ORDERED STATUS RANDOM 04/28/2021 5:50 PM ESL TUTOR [facility] Blood BLOOD SPECIMEN / Unknown Butterfly / Unknown 04/28/2021 10:01 AM ESL TUTOR 04/28/2021 10:01 AM ESL TUTOR Laci Davis DO CHEMISTRY [facility] [address] [place] [address], [place] from Last 3 Months or Most Recently Relevant to Health Maintenance Care Teams Farm Equipment Operator Relationship Specialty Start Date End Date Clinic, [facility] [address] [place] [address] PCP - General 12/30/23
[2024-02-09 05:11] VITALS: BP 210/107; PULSE 82; RESP 20; TEMP 36.9; O2SAT 99; BMI 27.0
--- NOTE | 2024-02-09 05:24 | CRLHL7_ITS ---
For Patients: As a result of the Century Cures Act, medical imaging exams and procedure reports are released immediately into your electronic medical record. You may view this report before your referring provider. If you have questions, please contact your health care provider. INDICATION: Epigastric abdomen pain. TECHNIQUE: CT abdomen and pelvis acquired with 103 cc Isovue 370 IV contrast. COMPARISON: None. FINDINGS: Lower chest: Small hiatal hernia. Liver: Unremarkable. Normal in size and attenuation. No suspicious masses. Gallbladder and bile ducts: Unremarkable. No stones or inflammation. No biliary dilatation. Pancreas: Unremarkable. No mass or inflammation. Spleen: Unremarkable. Normal in size. No masses. Adrenal glands: Unremarkable. No nodules. Kidneys: Unremarkable. No suspicious masses, stones, or hydronephrosis. GI tract: Mild wall thickening of the descending colon is likely due to nondistention rather than edema. GI tract otherwise unremarkable. Normal appendix. Vasculature: Abdominal aorta is normal in caliber. Mesenteric arteries are patent. Lymph nodes: No lymphadenopathy. Peritoneum/Abdominal Wall: Unremarkable. No sign of mass or infiltration. No free air or significant free fluid. Pelvis: Unremarkable. Bones: Unremarkable for age. IMPRESSION: 1. Small hiatal hernia. 2. Remainder of the exam is unremarkable. No other acute or specific findings to explain epigastric abdomen pain. Please note that all CT scans at this facility use dose modulation, iterative reconstruction, and/or weight-based dosing when appropriate to reduce radiation dose to as low as reasonably achievable. Dictated by Mamadou Bennett MD @ 02/09/2024 6:47:43 AM (Electronically Signed)
--- NOTE | 2024-02-09 05:27 | ED_ITS ---
HPI - General Adult General Chief complaint: Abdominal Pain Stated complaint: Abdominal pain Time Seen by Provider: 02/09/24 05:17 Source: patient Mode of arrival: wheelchair History of Present Illness HPI narrative: 58-year-old male presents to the emergency department with epigastric pain. Denies injury or trauma. Happened suddenly at 2:30 a.m.. Has not tried any medications to help with symptoms. Pain currently present for about 2-1/2 hours prior to arrival. Denies prior history of similar symptoms to me but did tell the nurses he has had some similar things before. It is a difficult history. It is very difficult to convince him to cooperate with exam as he prefers to crawl up on the floor and is not very forthcoming about his symptoms. Denies any bloody stools, no prior history of abdominal surgeries. Denies urinary changes, denies anticoagulant use. Pain is epigastric in nature, denies any radiation to the back or chest. He denies any other past medical history for me but I can see from 2 prior ED visits within the last year or so that he has been evaluated for chest pain twice. It does not look as though he has had any troponin elevation. He has been told according to those documents that he had an NSTEMI. He denies use of any prescription medications, aspirin, statin, antihypertensives. It is unclear if he followed up with a primary care provider or has had a stress test since those events. Smoker but denies alcohol. ROS is notable only for the abdominal pain per his report which is in the epigastric region, otherwise denies times 12 systems. Related Data Previous Rx's ?Medication ?Instructions ?Recorded omeprazole 20 mg capsule,delayed 20 mg PO DAILY #90 caps 02/09/24 release Allergies Allergy/AdvReac Type Severity Reaction Status Date / Time No Known Drug Allergies Allergy Verified 02/09/24 06:16 [facility] Medical History (Updated 02/09/24 @ 06:59 by Laila Kelley MD) Hypertension ?I10 - Essential (primary) hypertension (ICD-10) Non-ST elevation myocardial infarction (NSTEMI) ?I21.4 - Non-ST elevation (NSTEMI) myocardial infarction (ICD-10) Surgical History De Quervain's tenosynovitis, left (07/19/23) ?M65.4 - Radial styloid tenosynovitis [de Quervain] (ICD-10) Social History Smoking Status: Current every day smoker What tobacco products do you use: cigarettes Smoking packs per day: 0.25 Smoking cigarettes per day: 5.0 Years smoked: 40 Smoking pack-years: 10.00 Do you use any of these nicotine containing products: None Second hand tobacco smoke exposure: No How often do you have a drink containing alcohol: never How often do you have six or more drinks on one occasion: Never AUDIT-C Alcohol total score: 0 Non-prescribed substance use: denies use service: No Exam Const: Vital Signs, click to edit/add: Vital Signs - 24 hr 02/09/24 05:11 02/09/24 05:30 02/09/24 05:44 Temperature 98.5 F 98.5 F Pulse Rate [Right Pulse Oximeter] 82 Respiratory Rate 20 Blood Pressure [Ri ght Upper Arm] 210/107 H Pulse Oximetry 99 97 Oxygen Delivery Me thod Room Air 02/09/24 06:35 Temperature 98.5 F Pulse Rate [Right Pulse Oximeter] 85 Respiratory Rate 20 Blood Pressure [Ri ght Upper Arm] 205/105 H Pulse Oximetry 97 Oxygen Delivery Me thod Room Air Documenting provider has reviewed patient's vital signs: yes Other: Only mildly cooperative, requires frequent coaxing to get on the bed and allow an exam. Does not smell of any intoxication. Well groomed and hydrated appearing. HENMT: Common normals: normocephalic Head and scalp: normocephalic Face and sinus: normal facial exam Mouth: oral and palatal mucosa normal Throat: posterior oropharynx normal Eye: Common normals: conjunctivae normal General eye: normal appearance of both eyes Conjunctiva: conjunctiva(e) normal Neck & C-Spine: Common normals: full ROM and no lymphadenopathy Resp: Common normals: normal respiratory effort, no use of accessory muscles and clear to auscultation bilaterally Effort & inspection: able to speak in complete sentences Auscultation: clear to auscultation bilaterally Cardio: Common normals: regular rate, regular rhythm, S1 normal heart sound, S2 normal heart sound and no murmurs Rate: regular rate Rhythm: regular rhythm Heart sounds: S1 normal and S2 normal GI: Other: Marked tenderness over epigastric region. He tenses up too much for me to detect if there is an obvious hernia. There is no significant surgical scarring. He moves too much and will not remain still enough for me to tell bowel sound quality but I do believe I am hearing some. Abdomen does not seem overly distended, especially in the lower portion. Very difficult exam. No obvious mass. Back & Pelvis: Common normals: thoracic and lumbar spine normal to inspection Extremity: Common normals: normal to inspection and normal capillary refill Neuro: Common normals: moves all extremities Speech: speech normal Motor exam: no movement abnormalities noted Psych: Common normals: speech normal Speech: normal speech Other: Poor cooperation, no obvious signs of intoxication or delirium. Skin: Common normals: no rashes or lesions noted General skin exam: no rashes or lesions noted Course Course ED Course: 58-year-old male with prior history of questionable coronary artery disease, singly noncompliant with follow-up in therapy. Presenting with epigastric pain of uncertain etiology, very difficult exam and history. Vitals reviewed. Will start with 0.5 mg of Dilaudid, Zofran and some Protonix. Typical abdominal labs but including EKG and troponin. CT of the abdomen and pelvis with contrast if creatinine allows. Await clinical response and findings. Reevaluation(s) Time of Reevaluation #1: 07:00 Reevaluation #1: Discussed CT findings with patient. Do suspect his symptoms are from the hiatal hernia. He is feeling much better after Zofran, Protonix and Toradol. Had also been given a dose of Dilaudid upon arrival which made him calm down significantly. His is very strange. Ago from periods of laughing that we can see on camera to times of doubling over in pain but then quickly snaps out of it. He was definitely calmer after the medications. This is very difficult to interpret. All in all, I think he has a difficult time coping with pain and verbalizing his discomfort. His labs are very reassuring, it is clear that he is eating. His vitals are stable, he has no fever. I think it is safe to discharge him with a plan of daily omeprazole, primary care follow-up for his elevated blood pressure and plan for endoscopy if his symptoms do not improve on the omeprazole. Written instructions provided, all questions answered. Vital Signs Vital signs: Initial Vital Signs Temperature 98.5 F 02/09/24 05:11 Temperature Source Temporal Artery Scan 02/09/24 05:11 Pulse Rate 82 02/09/24 05:11 Respiratory Rate 20 02/09/24 05:11 Blood Pressure 210/107 H 02/09/24 05:11 Blood Pressure Mean 141 H 02/09/24 05:11 Blood Pressure Position Sitting 02/09/24 05:11 Pulse Oximetry 99 02/09/24 05:11 Oxygen Delivery Method Room Air 02/09/24 05:11 Vital Signs Temperature 98.5 F 02/09/24 05:11 Pulse Rate 82 02/09/24 05:11 Respiratory Rate 20 02/09/24 05:11 Blood Pressure 210/107 H 02/09/24 05:11 Pulse Oximetry 99 02/09/24 05:11 Oxygen Delivery Method Room Air 02/09/24 05:11 Temperature 98.5 F 02/09/24 06:35 Pulse Rate 85 02/09/24 06:35 Respiratory Rate 20 02/09/24 06:35 Blood Pressure 205/105 H 02/09/24 06:35 Pulse Oximetry 97 02/09/24 06:35 Oxygen Delivery Method Room Air 02/09/24 06:35 Medications Administered Medications: Discontinued Medications Generic Name Dose Route Start Last Admin Trade Name Freq PRN Reason Stop Dose Admin Hydromorphone HCl 0.5 mg 02/09/24 05:24 02/09/24 05:33 Hydromorphone 0.5 Mg/0.5 Ml Inj IVP 02/09/24 05:25 0.5 mg ONCE ONE Administration Ketorolac Tromethamine 15 mg 02/09/24 05:41 02/09/24 05:44 Ketorolac 15 Mg/Ml Inj IVP 02/09/24 05:42 15 mg ONCE ONE Administration Ondansetron HCl 4 mg 02/09/24 05:24 02/09/24 05:33 Ondansetron 2 Mg/Ml Inj IVP 02/09/24 05:25 4 mg ONCE ONE Administration Pantoprazole Sodium 40 mg 02/09/24 05:24 02/09/24 05:33 Pantoprazole Sodium 40 Mg Inj IVP 02/09/24 05:25 40 mg ONCE ONE Administration Medical Decision Making Lab Data Lab results reviewed: Yes I reviewed the patient's lab results Lab results narrative: Labs very reassuring. Good hemoglobin, minimal leukocytosis. Electrolytes reassuring. Creatinine better than usual. C reactive protein and troponin reassuring. Labs: Lab Results 02/09/24 02/09/24 02/09/24 Range/Units 04:25 05:24 05:25 WBC 12.36 H (4.50-11.00) K/uL RBC 4.86 (4.30-5.90) m/uL Hgb 15.0 (13.5-17.5) gm/dL Hct 45.8 (37.0-53.0) % MCV 94 (80-100) fL MCH 31 (26-34) pg MCHC 33 (32-36) gm/dL RDW Coeff of Garrett 14.0 (11.5-15.5) % Plt Count 263 (140-440) K/uL Neut % (Auto) 74.7 H (42.0-72.0) % Lymph % (Auto) 18.6 L (20-44) % [place] % (Auto) 6.1 (0.0-11.0) % Eos % (Auto) 0.2 (0.0-7.0) % Baso % (Auto) 0.2 (0.0-3.0) % Neut # (Auto) 9.20 H (1.7-7.0) K/uL Lymph # (Auto) 2.30 (0.90-2.90) K/uL [place] # (Auto) 0.80 (0.00-0.90) K/UL Eos # (Auto) 0.00 (0.00-0.50) K/uL Baso # (Auto) 0.00 (0.00-0.30) K/uL Abs Immat Gran (auto) 0.00 (0.00-0.30) K/uL Imm/Tot Granulo (auto) 0.2 % Sodium 139 (135-149) mmol/L Potassium 5.1 (3.6-5.1) mmol/L Chloride 108 (96-114) mmol/L Carbon Dioxide 28 (20-32) mmol/L Anion Gap 3 L (7-15) mEq/L BUN 17 (7-30) mg/dL Creatinine 1.1 (0.5-1.5) mg/dL Estimated Creat Clear 84.07 Estimated GFR 77 ml/min Glucose 131 H (60-115) mg/dL Calcium 9.6 (8.4-10.6) mg/dL Total Bilirubin 0.3 (0.1-1.5) mg/dL AST 27 (12-35) U/L ALT 25 (4-50) U/L Alkaline Phosphatase 93 (40-150) U/L C-Reactive Protein 0.6 (0.5-1.0) mg/dL Total Protein 7.1 (6.0-8.3) g/dL Albumin 5.2 H (3.3-5.0) g/dL Lipase 104 (23-300) U/L POC Creatinine (0.6-1.3) mg/dl POC Troponin I 0.01 (0.01-0.04) ng/ml 02/09/24 Range/Units 05:45 WBC (4.50-11.00) K/uL RBC (4.30-5.90) m/uL Hgb (13.5-17.5) gm/dL Hct (37.0-53.0) % MCV (80-100) fL MCH (26-34) pg MCHC (32-36) gm/dL RDW Coeff of Garrett (11.5-15.5) % Plt Count (140-440) K/uL Neut % (Auto) (42.0-72.0) % Lymph % (Auto) (20-44) % [place] % (Auto) (0.0-11.0) % Eos % (Auto) (0.0-7.0) % Baso % (Auto) (0.0-3.0) % Neut # (Auto) (1.7-7.0) K/uL Lymph # (Auto) (0.90-2.90) K/uL [place] # (Auto) (0.00-0.90) K/UL Eos # (Auto) (0.00-0.50) K/uL Baso # (Auto) (0.00-0.30) K/uL Abs Immat Gran (auto) (0.00-0.30) K/uL Imm/Tot Granulo (auto) % Sodium (135-149) mmol/L Potassium (3.6-5.1) mmol/L Chloride (96-114) mmol/L Carbon Dioxide (20-32) mmol/L Anion Gap (7-15) mEq/L BUN (7-30) mg/dL Creatinine (0.5-1.5) mg/dL Estimated Creat Clear Estimated GFR ml/min Glucose (60-115) mg/dL Calcium (8.4-10.6) mg/dL Total Bilirubin (0.1-1.5) mg/dL AST (12-35) U/L ALT (4-50) U/L Alkaline Phosphatase (40-150) U/L C-Reactive Protein (0.5-1.0) mg/dL Total Protein (6.0-8.3) g/dL Albumin (3.3-5.0) g/dL Lipase (23-300) U/L POC Creatinine 1.2 (0.6-1.3) mg/dl POC Troponin I (0.01-0.04) ng/ml Imaging Data CT scan - abdomen: Attestation: I have reviewed the pertinent imaging results. My impression: Mild gastritis with a small hiatal hernia. No other significant abnormalities. No obstruction, mass, pancreatic inflammation, appendicitis or other abnormalities perceived. There is a small fat containing periumbilical hernia but no signs of incarceration. Radiologist's impression: IMPRESSION: 1. Small hiatal hernia. 2. Remainder of the exam is unremarkable. No other acute or specific findings to explain epigastric abdomen pain. ECG Data Attestation: I personally reviewed and interpreted this ECG as follows: Prior ECG tracings: available for review Interpretation: Normal sinus rhythm, rate of 86. No significant ST or T-wave abnormalities. Unchanged from both previous EKGs in the past year. Stable EKG. Likely does meet criteria for LVH. Discharge Plan Discharge Clinical Impression: Hernia, hiatal Patient Disposition: Home w/ Parent or Adult Condition: Improved Instructions: Hiatal Hernia (DC) Additional Instructions: As we discussed, your labs look great. Your pain seems to be from a hiatal hernia. This is a very common condition where the stomach slides up into the chest cavity and gets pinched around the diaphragm muscle. There are no signs of any damage from this. This is not a dangerous condition. I do recommend that you start a stomach acid medicine like omeprazole once daily to help reduce irritation. I would also recommend that you stop smoking, avoid alcohol and any carbonated beverages as all 3 of those things make this significantly worse. It is okay to take Tylenol 1000 mg up to every 6 hours as needed for this discomfort. Oezs-lnx-cblumxv antacids like Pepto-Bismol, Maalox or Tums may help as well. If you continue to have very bothersome persistent symptoms, I would recommend that you follow-up with your primary care doctor to discuss them and that the 2 of you consider doing an endoscopy. I would recommend that you make a follow-up appointment right away with her primary care doctor to discuss your elevated blood pressure. This does need treatment. Activity Level: No Restrictions Discharge Diet: Regular Prescriptions: New omeprazole 20 mg capsule,delayed release(DR/EC) 20 mg PO DAILY Qty: 90 3RF Follow Up/Referrals: FIDEL RASMUSSEN DO [Referring] - Stand Alone Forms: [employer] Info Instructions
[2024-02-09 05:30] VITALS: O2SAT 97
[2024-02-09] MEDS: HYDROmorphone 0.5 mg/0.5 ml inj IVP (05:33)
[2024-02-09] MEDS: PANTOPRAZOLE SODIUM 40 MG INJ IVP (05:33)
[2024-02-09] MEDS: ONDANSETRON 2 MG/ML inj 4 MG IVP (05:33)
[2024-02-09 05:44] VITALS: TEMP 36.9
[2024-02-09] MEDS: KETOROLAC 15 MG/ML inj IVP (05:44)
[2024-02-09 05:45] LABS: Troponin, Point-of-Care* 0.01 ng/ml (0.01-0.04)
[2024-02-09 05:45] LABS: Creatinine, Point-of-Care* 1.2 mg/dl (0.6-1.3)
[2024-02-09 05:51] LABS: Basophils Percent Auto 0.2 % (0.0-3.0); Eosinophils Percent Auto 0.2 % (0.0-7.0); Hematocrit 45.8 % (37.0-53.0); Immature Granulocytes Pct Auto 0.2 %; Lymphocytes Percent Auto 18.6 % (20-44); Mean Corpuscular HGB Conc 33 gm/dL (32-36); Mean Corpuscular Hemoglobin 31 pg (26-34); Mean Corpuscular Volume 94 fL (80-100); Monocytes Percent Auto 6.1 % (0.0-11.0); Neutrophils Percent Auto 74.7 % (42.0-72.0); Platelet Count* 263 K/uL (140-440); Red Blood Count 4.86 m/uL (4.30-5.90); White Blood Count* 12.36 K/uL (4.50-11.00)
[2024-02-09 05:54] LABS: Slide Review Reflex No
[2024-02-09 06:03] LABS: Albumin* 5.2 g/dL (3.3-5.0); Chloride* 108 mmol/L (96-114); Sodium* 139 mmol/L (135-149)
[2024-02-09 06:33] LABS: Potassium* 5.1 mmol/L (3.6-5.1)
[2024-02-09 06:35] VITALS: BP 205/105; PULSE 85; RESP 20; TEMP 36.9; O2SAT 97
[2024-02-09 06:36] LABS: Creatinine* 1.1 mg/dL (0.5-1.5); Est. Creatinine Clearance* 84.07; Estimated Glomerular Filt Rate 77 ml/min
[2024-02-09 06:37] LABS: Alanine Aminotransferase* 25 U/L (4-50); Alkaline Phosphatase* 93 U/L (40-150); Anion Gap 3 mEq/L (7-15); Aspartate Amino Transferase* 27 U/L (12-35); Bilirubin Total* 0.3 mg/dL (0.1-1.5); Blood Urea Nitrogen* 17 mg/dL (7-30); Carbon Dioxide* 28 mmol/L (20-32); Glucose* 131 mg/dL (60-115); Lipase* 104 U/L (23-300); Total Protein* 7.1 g/dL (6.0-8.3)
[2024-02-09 06:38] LABS: Calcium* 9.6 mg/dL (8.4-10.6)
[2024-02-09 06:40] LABS: C Reactive Protein* 0.6 mg/dL (0.5-1.0)
--- OUTSIDE RECORDS SUMMARY | 2024-02-09 06:51 | XMS_ITS | Clinical Summary ---
Author Organization [facility] Address [place], [place] [address] Care Team Providers Care Filament Tester Name Role Phone Clinic, [facility] Primary Care Pr ovider Allergies No known [...] patch, one 5 sec run Non-ST elevation DE (NSTEMI) 04/27/2021 Chronic pain of right knee [...] Name Status Comments Brother 1 (Age 57) [place] Brother 2 Alive Daughter 1 Becka Alive Daughter 2 Mystique Alive Father (Age 60) [place] Maternal Grandfather Maternal Grandmother Mother Other Unknown [...] DT Respiratory Rate 16 06/13/2017 2:42 PM PROGRAM SPECIALIST Oxygen Saturation 100% 09/26/2021 3:27 PM CDT [...] REFLEX MEASURED LDL Routine 04/28/2021 10:01 AM PROGRAM SPECIALIST Family history of early CAD from Last 3 Months or Most Recently Relevant to Health Maintenance Results * (ABNORMAL) LIPID PANEL W REFLEX MEASURED LDL (04/28/2021 10:01 AM PROGRAM SPECIALIST) CHOLESTEROL,TOTAL 203(H) 100 - 199 mg/dL 04/28/2021 5:50 PM PROGRAM SPECIALIST [facility] TRIGLYCERIDES 163(H) <150 mg/dL 04/28/2021 5:50 PM PROGRAM SPECIALIST [facility] HDL CHOLESTEROL 32(L) >40 mg/dL 5:50 PM PROGRAM SPECIALIST [facility] NON-HDL CHOLESTEROL 171(H) <145 mg/dl 04/28/2021 5:50 PM PROGRAM SPECIALIST [facility] CHOL/HDL RATIO 6.34(H) <4.50 04/28/2021 5:50 PM PROGRAM SPECIALIST [facility] LDL CHOLESTEROL 138(H) <=130 mg/dL 04/28/2021 5:50 PM PROGRAM SPECIALIST [facility] VLDL CHOLESTEROL 33(H) <=30 mg/dL 04/28/2021 5:50 PM PROGRAM SPECIALIST [facility] PROVIDER ORDERED STATUS RANDOM 04/28/2021 5:50 PM PROGRAM SPECIALIST [facility] Blood BLOOD SPECIMEN / Unknown Butterfly / Unknown 04/28/2021 10:01 AM PROGRAM SPECIALIST 04/28/2021 10:01 AM PROGRAM SPECIALIST Laci Davis DO [facility] [address] [place] [address], [place] from Last 3 Months or Most Recently Relevant to Health Maintenance Care Teams Filament Tester Relationship Specialty Start Date End Date Clinic, [facility] [address] [place] [address] PCP - General 12/30/23
== END 2024-02-09 07:11 | disposition home or self-care (01) ==
PROVIDERS: Emergency Provider Family Medicine
DX: K44.9 Diaphragmatic hernia without obstruction or gangrene (principal)
CPT/HCPCS: 36415; 74177; 80053; 80306; 81003; 82565; 83690; 84484; 85025; 86140; 93005; 94761; 96374; 96375; 99284; 99285; J1170; J1885; J2405; J2470; Q9967

== ENCOUNTER 2024-07-09 07:57 | Day surgery (SDC) | payer BC, SELFPAY ==
[2024-07-09] VITALS (15 sets, daily range): BP systolic 132–178; BP diastolic 78–118; PULSE 66–87; RESP 12–18; TEMP 36.2–36.4; O2SAT 92–99; BMI 26.6; BMI 26.0
--- OUTSIDE RECORDS SUMMARY | 2024-07-09 07:59 | XMS_ITS | Continuity of Care Document ---
Author Name [facility] Organization [facility] Care Team Providers Care Radiation Control Technician Name Role Phone [facility] Unavailable Unavailable Procedures Combined list of: 1) Procedures from Department of Veterans Affairs facilities going back up to thelast 18 months, not all [place] non-surgical procedures are included; 2) All procedures from the Department of Defense facilities. Procedure Procedure Type Code Date Perfomer Comments Dimitri flores HEPATITIS B VACCINE (HEPB), ADULT DOSAGE, 3 DOSE SCHEDULE, FOR INTRAMUSCULAR USE 02/15/2004 [facility] MENINGOCOCCAL POLYSACCHARIDE VACCINE, SEROGROUPS A, C, Y, W-135, QUADRIVALENT (MPSV4), FOR SUBCUTANEOUS USE 04/14/2003 [facility] HEPATITIS B VACCINE (HEPB), ADULT DOSAGE, 3 DOSE SCHEDULE, FOR INTRAMUSCULAR USE 04/13/2003 [facility] PSYCHIATRIC DIAGNOSTIC INTERVIEW EXAMINATION 04/12/2003 [facility] PSYCHIATRIC DIAGNOSTIC INTERVIEW EXAMINATION 04/09/2003 [facility] INDIVIDUAL PSYCHOTHERAPY, INSIGHT ORIENTED, BEHAVIOR MODIFYING AND/OR SUPPORTIVE, IN AN OFFICE OR OUTPATIENT FACILITY, APPROXIMATELY 20 TO 30 MINUTES [id number] WITH THE PATIENT 03/25/2003 [facility] ANTHRAX VACCINE, FOR SUBCUTANEOUS OR INTRAMUSCULAR USE 03/23/2003 [facility] TETANUS AND DIPHTHERIA TOXOIDS (TD) ADSORBED WHEN ADMINISTERED TO INDIVIDUALS 7 YEARS OR OLDER, FOR INTRAMUSCULAR USE 03/04/2003 [facility] Social History Combined list of available smoking, tobacco, and other social history from Department of Defense and Veterans Affairs facilities. Social History Type Response Date Comment Dimitri flores This section is an empty social history section. [facility]
--- OUTSIDE RECORDS SUMMARY | 2024-07-09 07:59 | XMS_ITS | Clinical Summary ---
Author Organization [facility] Address [address] [place] [id number] Care Team Providers Care Rotary Dryer Operator Name Role Phone Gilberto Avelar MD Primary Care P rovider Allergies No known active allergies Medications lisinopriL (PRINIVIL; ZESTRIL) 40 mg tabletIndications :Essential hypertension Take 1 Tablet (40 mg) by mouth once daily. 90 Tablet 3 02/19/2024 Active hydroCHLOROthiazi de 25 mg tabletIndications :Essential hypertension Take 1 Tablet (25 mg) by mouth once daily. 90 Tablet 3 02/19/2024 Active Active Problems Problem Noted Date Diagnosed Date VT (ventricular tachycardia) 06/26/2021 Overview (06/26/2021): Per Zio patch, one 5 sec run Non-ST elevation NE (NSTEMI) 04/27/2021 Overview (03/25/2024): Questionable. 2020 ER visit. Initial trop 0.19, decreased on repeat. Subsequent zio largely normal and CT coronary angio showing mild disease and calcium score of 1. Chronic pain of right knee 04/18/2017 Patellofemoral pain syndrome of right knee 02/11 Osteochondral lesion of right medial femoral con dyle 02/11/2017 Chondromalacia of right knee 01/19/2016 Overview (03/16/2016): Grade 4 per ortho consult with [facility] Hyperplastic colon polyp 09/27/2014 Overview (09/27/2014): Colonoscopy 09/2014 polyp repeat in 10 years Tobacco dependence 09/07/2014 Essential hypertension 05/20/2013 Encounters Date Type Department Care Team Description 07/09/2024 9:00 AM WEAPONS OFFICER Office Visit [facility] [address] [place] [address] Nicole Rodrigues PA Abdominal Pain 07/09/2024 Nurse Triage [facility] [address] [place] [address] Gilberto Avelar MD Abdominal Pain (History of hiatal hernia) 07/09/2024 Travel from Last 3 Months Immunizations Name Administration Dates Next Due AMB INFLUENZA, IIV4 (AGE=>6MOS) MDV (Flu Clinic Only) 01/22/2019,03/02/2017 INFLUENZA, IIV3 PF (AGE >= 6 MO) 02/19/2024 Influenza Virus, Unspecified 03/12/2015 Influenza, IIV4 02/11/2016 Influenza,CCIIV4 PRESERV FREE 01/22/2019 Tdap 02/19/2024,09/07/2012 Zoster (Shingrix-RZV, recombinant) 10/20/2018, Family History Medical History Relation Name Comments Heart attack Brother 1 No Known Problems Brother 2 Good Health Daughter 1 Becka ADD / ADHD Daughter 2 Mystique Heart Disease Father CHF Hypertension Father No Known Problems Sister Good Health Son Maxim Relation Name Status Comments Brother 1 (Age 57) NE Brother 2 Alive Daughter 1 Becka Alive Daughter 2 Mystique Alive Father (Age 60) NE Maternal Grandfather Maternal Grandmother Mother Other Unknown [...] Answer Date Recorded PHQ-2 TOTAL SCORE 0 03/25/2024 Social Connections Answer Date Recorded Do you often feel lonely or isolated from those around you? 0 02/15/2024 Financial Resource Strain Answer Date R ecorded Difficulty of Paying Living Expenses 3 02/15/2024 Difficulty of Paying Living Expenses Not on file 02/15/2024 Food Insecurity Answer Date Recorded Do you worry your food will run out before you are able to buy more? 1 02/15/2024 Transportation Needs Answer Date Record ed Does lack of transportation keep you from medica l appointments? 1 02/15/2024 Does lack of transportation keep you from work, meetings or getting things that you need? 1 02/15/2024 Housing Stability Answer Date Recorded What is your housing situation today? 1 02/15/2024 Utilities Answer Date Recorded Do you have trouble paying f or utilities (for example, heat, electricity, water, phone)? 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 Not on file Not on file Obstetrics History Last Filed Vital Signs Vital Sign Reading Time Taken Comments Blood Pressure 201/122 07/09/2024 7:13 AM WEAPONS OFFICER Pulse 88 07/09/2024 7:13 AM WEAPONS OFFICER Temperature 36.4 C (97.6 F) 07/09/2024 7:13 AM WEAPONS OFFICER Respiratory Rate 16 06/13/2017 2:42 PM WEAPONS OFFICER Oxygen Saturation 98% 07/09/2024 7:13 AM WEAPONS OFFICER Inhaled Oxygen Concentration - - Weight 92.1 kg (203 lb) 03/25/2024 3:05 PM WEAPONS OFFICER Height 185.4 cm (6' 1) 09/25/2022 9:31 AM CDT Body Mass Index 26.78 09/25/2022 9:31 AM CDT Plan of Treatment Upcoming Encounters Date Type Department Care Team (Late st Contact Info) Description 07/09/2024 9:00 AM WEAPONS OFFICER Office Visit [facility] [address] [place] [address] Nicole Rodrigues PA [address] [place] [address] Abdominal Pain Health Maintenance Due Date Last Done Comments HIV for age 15-65 1979 Hepatitis C screening for ag e 18-79 1982 Pneumococcal series for age 50+ (1 of 2 - PCV) 1983 BMI (ht and wt on same day) for age 18+ 09/26/2023 09/25/2022, 09/26/2021, 06/26/2021, Additional history exists COVID-19 vaccine series (1 - 2023-25 season) 2024 RSV vaccine for adults or (1 - Risk 60-74 years 1-dose series) 2024 Colonoscopy through age 75 09/17/2024 09/17/2014 Depression screening for age 12+ 03/25/2025 03/25/2024, 06/26/2021, 11/30/2019, Additional history exists Lipids for age 45-75 04/28/2026 04/28/2021, 11/30/2019, 08/20/2016, Additional history exists Tetanus booster 02/18/2034 02/19/2024, 09/07/2012 Zoster (shingles) series for age 50+ Completed 10/20/2018, 08/20/2018 Influenza for age 50-64 Completed 02/19/20 24, 01/22/2019, 01/22/2019, Additional history exists Tdap Completed 02/19/2024, 09/07/2012 Procedures Procedure Name Priority Date/Time Associated Diagnosis Comments LIPID PANEL W REFLEX MEASURED LDL Routine 04/28/2021 10:01 AM WEAPONS OFFICER Family history of early CAD from Last 3 Months or Most Recently Relevant to Health Maintenance Results * (ABNORMAL) LIPID PANEL W REFLEX MEASURED LDL (04/28/2021 10:01 AM WEAPONS OFFICER) CHOLESTEROL,TOTAL 203(H) 100 - 199 mg/dL 04/28/2021 5:50 PM WEAPONS OFFICER [facility] TR[facility] TRIGLYCERIDES 163(H) <150 mg/dL 04/28/2021 5:50 PM WEAPONS OFFICER [facility] HDL CHOLESTEROL 32(L) >40 mg/dL 5:50 PM WEAPONS OFFICER [facility] NON-HDL CHOLESTEROL 171(H) <145 mg/dl 04/28/2021 5:50 PM WEAPONS OFFICER [facility] TRAL LABORATORY CHOL/HDL RATIO 6.34(H) <4.50 04/28/2021 5:50 PM WEAPONS OFFICER [facility] TR[facility] LDL CHOLESTEROL 138(H) <=130 mg/dL 04/28/2021 5:50 PM WEAPONS OFFICER [facility] VLDL CHOLESTEROL 33(H) <=30 mg/dL 04/28/2021 5:50 PM WEAPONS OFFICER [facility] TRAL LABORATORY PROVIDER ORDERED STATUS RANDOM 04/28/2021 5:50 PM WEAPONS OFFICER [facility] TR[facility] Blood BLOOD SPECIMEN / Unknown Butterfly / Unknown 04/28/2021 10:01 AM WEAPONS OFFICER 04/28/2021 10:01 AM WEAPONS OFFICER us Adei Susan DO CHEMISTRY Final Result [facility] [address] [place] [address], [place] from Last 3 Months or Most Recently Relevant to Health Maintenance Insurance [facility] [employer] [facility] Care Teams Rotary Dryer Operator Relationship Specialty Start Date End Date Gilberto Avelar [place] [address] PCP - General Family Practice 03/25/24
[2024-07-09] MEDS: HYDROmorphone 0.5 mg/0.5 ml inj IVP ×2 (08:38→11:06)
[2024-07-09 08:39] LABS: Lactate Sepsis w/Reflex* 2.5 mmol/L (0.5-1.9)
[2024-07-09 08:41] LABS: Basophils Absolute Auto 0.01 K/uL (0.00-0.30); Basophils Percent Auto 0.1 % (0.0-3.0); Eosinophils Absolute Auto 0.09 K/uL (0.00-0.50); Eosinophils Percent Auto 1.1 % (0.0-7.0); Hematocrit 42.5 % (37.0-53.0); Hemoglobin* 13.9 gm/dL (13.5-17.5); Immature Granulocytes Abs Auto 0.01 K/uL (0.00-0.30); Immature Granulocytes Pct Auto 0.1 %; Lymphocytes Absolute Auto 1.92 K/uL (0.90-2.90); Mean Corpuscular HGB Conc 33 gm/dL (32-36); Mean Corpuscular Hemoglobin 32 pg (26-34); Mean Corpuscular Volume 98 fL (80-100); Neutrophils Percent Auto 67.7 % (42.0-72.0); Platelet Count* 375 K/uL (140-440); RDW Coefficient of Variation % 13.5 % (11.5-15.5); Red Blood Count 4.35 m/uL (4.30-5.90); White Blood Count* 7.99 K/uL (4.50-11.00)
[2024-07-09] MEDS: KETOROLAC 15 MG/ML inj IVP (08:42)
[2024-07-09] MEDS: 0.9 % SODIUM CHLORIDE 500 ML 500 ML IV (08:42)
[2024-07-09] MEDS: ONDANSETRON 2 MG/ML inj 4 MG IVP ×2 (08:43→15:20)
[2024-07-09 08:54] LABS: Troponin, Point-of-Care* 0.01 ng/ml (0.01-0.04)
--- NOTE | 2024-07-09 08:56 | CRLHL7_ITS ---
For Patients: As a result of the Century Cures Act, medical imaging exams and procedure reports are released immediately into your electronic medical record. You may view this report before your referring provider. If you have questions, please contact your health care provider. INDICATION: RUQ PAIN COMPARISON: CT abdomen/pelvis on February 09, 2024 TECHNIQUE: Ultrasound abdomen complete. Real time smith scale imaging and color Doppler analysis was performed of the abdomen. FINDINGS: Liver: The liver is normal in size measuring 15.6 cm in length. Mildly increased hepatic echogenicity, suggestive of diffuse hepatic steatosis. No focal liver lesions identified. Gallbladder: The gallbladder contains sludge and numerous gallstones. There is slight gallbladder wall thickening measuring 0.4 centimeters and some regions of suspected gallbladder wall calcifications. No pericholecystic fluid. Positive sonographic Mcclelland sign. Bile ducts: The common bile duct measures 5 mm in diameter. Pancreas: Not visualized Right kidney: The right kidney measures 11.4 cm in length. No hydronephrosis, calculus, or mass. Vascular: Normal caliber abdominal aorta where imaged. The main portal vein is patent with normal flow direction. IMPRESSION: 1. Cholelithiasis with sonographic findings suggestive of acute cholecystitis to include mild gallbladder wall thickening and positive sonographic Mcclelland`s sign; recommend consultation with surgery. 2. Mild diffuse hepatic steatosis. No suspicious hepatic lesions. Dictated by Aaron Sutton MD @ 07/09/2024 9:38:13 AM (Electronically Signed)
[2024-07-09 09:16] LABS: Slide Review Reflex No
[2024-07-09 09:25] LABS: Albumin* 4.1 g/dL (3.3-5.0); Chloride* 108 mmol/L (96-114)
[2024-07-09 09:26] LABS: Potassium* 4.3 mmol/L (3.6-5.1); Sodium* 143 mmol/L (135-149)
[2024-07-09 09:28] LABS: Creatinine* 1.1 mg/dL (0.5-1.5); Est. Creatinine Clearance* 83.03; Estimated Glomerular Filt Rate 77 ml/min
[2024-07-09 09:29] LABS: Alanine Aminotransferase* 16 U/L (4-50); Alkaline Phosphatase* 97 U/L (40-150); Anion Gap 8 mEq/L (7-15); Aspartate Amino Transferase* 19 U/L (12-35); Bilirubin Direct* 0.2 mg/dL (0.0-0.5); Bilirubin Total* 0.3 mg/dL (0.1-1.5); Blood Urea Nitrogen* 15 mg/dL (7-30); Calcium* 9.4 mg/dL (8.4-10.6); Carbon Dioxide* 27 mmol/L (20-32); Glucose* 91 mg/dL (60-115); Lipase* 47 U/L (23-300); Total Protein* 7.3 g/dL (6.0-8.3)
[2024-07-09 09:31] LABS: C Reactive Protein* 1.2 mg/dL (0.5-1.0)
--- NOTE | 2024-07-09 09:40 | ED_ITS ---
HPI - General Adult General Date Seen: 07/09/24 Chief complaint: Abdominal Pain Stated complaint: hernia Time Seen by Provider: 07/09/24 08:16 History of Present Illness HPI narrative: Patient is a 59-year-old male here with sudden onset of severe upper abdominal pain at around 5:00 a.m.. It has been persistent since then. Little bit of nausea but no vomiting, says bowel movements have been normal. He has a history of this same pain once before, last January. Seen here that and at that time had a CT scan of the abdomen which was negative, aside from a small hiatal hernia. Labs are unremarkable. He was treated for possible symptomatic hiatal hernia with omeprazole. He says he has been taking that since then and has been well until today when he had recurrence of this pain. He denies abdominal surgeries. Medical history notable for hypertension. The following also noted in his records: He reminds me 2 years ago in 2020 he came in for a similar episode, also tied to syncope, his troponins at that point were elevated, and he went to [facility] for evaluation. There he had a CT angiogram which showed that he had normal coronary arteries, and they sent him home. They told him that he should take aspirin but he is not taking these. He denies any further cardiac history. He has quit smoking. Denies alcohol use. Related Data Home Medications ?Medication ?Instructions ?Recorded ?Confirmed hydrochlorothiazide 25 mg tablet 25 mg PO DAILY 07/09/24 07/09/24 lisinopril 40 mg tablet 40 mg PO DAILY 07/09/24 07/09/24 Allergies Allergy/AdvReac Type Severity Reaction Status Date / Time No Known Drug Allergies Allergy Verified 07/09/24 08:12 Review of Systems Status of ROS: Reports: 10 or more systems reviewed and unremarkable except as noted in History and below [facility] Medical History (Updated 07/09/24 @ 15:28 by Padmaja Sheriff PA-C) Hypertension ?I10 - Essential (primary) hypertension (ICD-10) Non-ST elevation myocardial infarction (NSTEMI) ?I21.4 - Non-ST elevation (NSTEMI) myocardial infarction (ICD-10) Surgical History De Quervain's tenosynovitis, left (12/05/22) ?M65.4 - Radial styloid tenosynovitis [de Quervain] (ICD-10) Social History Narrative: The patient previously smoked approximately half a pack a day but has stopped for the last 2 months. 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 What is your current living situation?: I presently have a place to live Problems where you live: no known problems Problems where you live details: none In the past 12 months, utilities in danger of being shut off: yes In past 12 months, lack of transportation kept you from medical appts, meetings, work, or getting things needed for daily living: yes In the past 12 mos, have been you worried that your food would run out before you had money to buy more?: never true In the past 12 mos, the food you bought just didn't last and you didn't have money to buy more?: never true Highest level of school completed/degree received: Bachelor's degree Smoking Status: Former smoker What tobacco products do you use: cigarettes Smoking packs per day: 0.5 Smoking cigarettes per day: 10.0 Years smoked: 40 Smoking pack-years: 20.00 Smoking quit date/years: <= 15 years ago Do you use any of these nicotine containing products: None Second hand tobacco smoke exposure: No How often do you have a drink containing alcohol: never How often do you have six or more drinks on one occasion: Never AUDIT-C Alcohol total score: 0 Non-prescribed substance use: denies use Caffeine: No How often does anyone, including family, friends and others, physically hurt you : never How often does anyone, including family, friends and others, insult or talk down to you: never How often does anyone, including family, friends and others, threaten you with harm: never How often does anyone, including family, friends and others, scream or curse at you: never service: Yes Health Related Social Needs: transportation insecurity (Z59.82) Exam Narrative: Exam Narrative: Vital signs reviewed In general, when I 1st walked into the room he was on all fours on the floor, similar to his previous visit. He did however get into the bed for me so that I could evaluate him. In general, and alert, nontoxic mid aged male. He looks very uncomfortable. Head: Normocephalic, atraumatic. Eyes: Sclera clear. Pupils equal and reactive. No scleral icterus. ENT: Mucous membranes moist. Neck: Supple without adenopathy. Heart: Regular rate and rhythm without murmur. Lungs: Clear. No increased work of breathing, crackles or wheezes. Abdomen: Abdomen is slightly distended he has tenderness and guarding in the epigastrium and right upper quadrant. The left upper quadrant is less tender although not entirely normal. He does not have significant lower abdominal tenderness or guarding. Extremities: Well perfused, pulses intact. No significant edema. Neurologic: Alert, conversant. Speech fluent, face symmetric. Moves all extremities equally. Skin: Warm, dry well perfused. Affect: Normal. Const: Vital Signs, click to edit/add: Vital Signs - 24 hr 07/09/24 08:06 07/09/24 09:20 07/09/24 09:21 Temperature 97.4 F L Pulse Rate 66 Pulse Rate [Left P ulse Oximeter] Pulse Rate [Pulse Oximeter] 76 Respiratory Rate 18 16 Blood Pressure 149/97 H Blood Pressure [Ri ght Arm] Blood Pressure [Ri ght Upper Arm] 178/107 H Pulse Oximetry 98 99 98 Oxygen Delivery Me thod Room Air 07/09/24 10:48 07/09/24 11:58 07/09/24 12:26 Temperature 97.6 F Pulse Rate 69 Pulse Rate [Left P ulse Oximeter] 79 Pulse Rate [Pulse Oximeter] Respiratory Rate 16 16 Blood Pressure 132/94 H Blood Pressure [Ri ght Arm] 141/96 H Blood Pressure [Ri ght Upper Arm] Pulse Oximetry 98 98 Oxygen Delivery La thod Room Air Room Air Room Air Course Course ED Course: Following initial evaluation, I did order an EKG although I do not have high suspicion that this is related to acute coronary syndrome. EKG showed a sinus bradycardia, ventricular rate of 58. No ST segment changes, unremarkable T- waves. An IV was placed, he was given Zofran, Toradol 15 mg IV and Dilaudid 0.5 mg. He was comfortable enough at that time that I was able to do a right upper quadrant ultrasound. Gallbladder was visualized, appeared to be full of perhaps sludge and small stones, , difficult for me to evaluate the wall. I ordered a formal right upper quadrant ultrasound. I did review his records, confirm that gallbladder was normal on his CT scan last January. Labs are reviewed and not able only for an elevated lactate of 2.5 and a CRP of 1.2. Other labs are normal. Point of care troponin is 0.01. Formal ultrasound read as showing sludge and stones with a mildly thickened wall consistent with cholecystitis. Dr. Wooten reviewed as well. Plan at this time is admission to the hospitalist service with surgery planned for later today. Maintained NPO, maintenance fluids at 125 mL an hour ordered as well as an additional 0.5 mg of Dilaudid for pain. Per Dr. Wooten, antibiotics not needed at this time. Vital Signs Vital signs: Initial Vital Signs Temperature 97.4 F L 07/09/24 08:06 Temperature Source Oral 07/09/24 08:06 Pulse Rate 76 07/09/24 08:06 Respiratory Rate 18 07/09/24 08:06 Blood Pressure 178/107 H 07/09/24 08:06 Blood Pressure Mean 130 H 07/09/24 08:06 Pulse Oximetry 98 07/09/24 08:06 Oxygen Delivery Method Room Air 07/09/24 08:06 Vital Signs Temperature 97.4 F L 07/09/24 08:06 Pulse Rate 76 07/09/24 08:06 Respiratory Rate 18 07/09/24 08:06 Blood Pressure 178/107 H 07/09/24 08:06 Pulse Oximetry 98 07/09/24 08:06 Oxygen Delivery Method Room Air 07/09/24 08:06 Temperature 97.6 F 07/09/24 11:58 Pulse Rate 79 07/09/24 11:58 Respiratory Rate 16 07/09/24 12:26 Blood Pressure 141/96 H 07/09/24 11:58 Pulse Oximetry 98 07/09/24 12:26 Oxygen Delivery Method Room Air 07/09/24 12:26 Medications Administered Medications: Generic Name Dose Route Start Last Admin Trade Name Freq PRN Reason Stop Dose Admin Lactated Ringer's 1,000 mls @ 125 mls/hr 07/09/24 10:50 07/09/24 14:51 Lactated Ringers 1000 Ml IV 125 mls/hr .Q8H MAY Administration Discontinued Medications Generic Name Dose Route Start Last Admin Trade Name Freq PRN Reason Stop Dose Admin Bupivacaine HCl 30 ml 07/09/24 14:27 07/09/24 14:53 Bupivacaine 0.25% 30 Ml INJECTION 07/09/24 14:28 20 ml ONCE ONE Administration Hydromorphone HCl 0.5 mg 07/09/24 08:29 07/09/24 08:38 Hydromorphone 0.5 Mg/0.5 Ml Inj IVP 07/09/24 08:30 0.5 mg ONCE ONE Administration Hydromorphone HCl 0.5 mg 07/09/24 10:53 07/09/24 11:06 Hydromorphone 0.5 Mg/0.5 Ml Inj IVP 07/09/24 10:54 0.5 mg ONCE ONE Administration Sodium Chloride 500 mls @ 500 mls/hr 07/09/24 08:29 07/09/24 10:16 0.9 % Sodium Chloride 500 Ml IV 07/09/24 09:28 Infused .Q1H ONE Infusion Ketorolac Tromethamine 15 mg 07/09/24 08:29 07/09/24 08:42 Ketorolac 15 Mg/Ml Inj IVP 07/09/24 08:30 15 mg ONCE ONE Administration Ondansetron HCl 4 mg 07/09/24 08:29 07/09/24 08:43 Ondansetron 2 Mg/Ml Inj IVP 07/09/24 08:30 4 mg ONCE ONE Administration Piperacillin Sod/Tazobactam Sod 3.375 gm 07/09/24 13:48 07/09/24 13:55 Piperacillin/Tazobactam 3.375 Gm Inj IVPB 07/09/24 13:49 3.375 gm ONCE ONE Administration Medical Decision Making Lab Data Lab results reviewed: Yes I reviewed the patient's lab results Labs: Lab Results 07/09/24 07/09/24 07/09/24 Range/Units 08:29 08:30 09:00 WBC 7.99 (4.50-11.00) K/uL RBC 4.35 (4.30-5.90) m/uL Hgb 13.9 (13.5-17.5) gm/dL Hct 42.5 (37.0-53.0) % MCV 98 (80-100) fL MCH 32 (26-34) pg MCHC 33 (32-36) gm/dL RDW Coeff of Garrett 13.5 (11.5-15.5) % Plt Count 375 (140-440) K/uL Neut % (Auto) 67.7 (42.0-72.0) % Lymph % (Auto) 24.0 (20-44) % Stafford % (Auto) 7.0 (0.0-11.0) % Eos % (Auto) 1.1 (0.0-7.0) % Baso % (Auto) 0.1 (0.0-3.0) % Neut # (Auto) 5.40 (1.7-7.0) K/uL Lymph # (Auto) 1.92 (0.90-2.90) K/uL Stafford # (Auto) 0.60 (0.00-0.90) K/UL Eos # (Auto) 0.09 (0.00-0.50) K/uL Baso # (Auto) 0.01 (0.00-0.30) K/uL Abs Immat Gran (auto) 0.01 (0.00-0.30) K/uL Imm/Tot Granulo (auto) 0.1 % INR 1.00 (0.91-1.10) Sodium 143 (135-149) mmol/L Potassium 4.3 (3.6-5.1) mmol/L Chloride 108 (96-114) mmol/L Carbon Dioxide 27 (20-32) mmol/L Anion Gap 8 (7-15) mEq/L BUN 15 (7-30) mg/dL Creatinine 1.1 (0.5-1.5) mg/dL Estimated Creat Clear 83.03 Estimated GFR 77 ml/min Glucose 91 (60-115) mg/dL Lactate 2.5 H (0.5-1.9) mmol/L Calcium 9.4 (8.4-10.6) mg/dL Total Bilirubin 0.3 (0.1-1.5) mg/dL Direct Bilirubin 0.2 (0.0-0.5) mg/dL AST 19 (12-35) U/L ALT 16 (4-50) U/L Alkaline Phosphatase 97 (40-150) U/L C-Reactive Protein 1.2 H (0.5-1.0) mg/dL Total Protein 7.3 (6.0-8.3) g/dL Albumin 4.1 (3.3-5.0) g/dL Lipase 47 (23-300) U/L Lab Acknowledgement POC Troponin I 0.01 (0.01-0.04) ng/ml 07/09/24 07/09/24 Range/Units 10:42 13:08 WBC (4.50-11.00) K/uL RBC (4.30-5.90) m/uL Hgb (13.5-17.5) gm/dL Hct (37.0-53.0) % MCV (80-100) fL MCH (26-34) pg MCHC (32-36) gm/dL RDW Coeff of Garrett (11.5-15.5) % Plt Count (140-440) K/uL Neut % (Auto) (42.0-72.0) % Lymph % (Auto) (20-44) % Stafford % (Auto) (0.0-11.0) % Eos % (Auto) (0.0-7.0) % Baso % (Auto) (0.0-3.0) % Neut # (Auto) (1.7-7.0) K/uL Lymph # (Auto) (0.90-2.90) K/uL Stafford # (Auto) (0.00-0.90) K/UL Eos # (Auto) (0.00-0.50) K/uL Baso # (Auto) (0.00-0.30) K/uL Abs Immat Gran (auto) (0.00-0.30) K/uL Imm/Tot Granulo (auto) % INR (0.91-1.10) Sodium (135-149) mmol/L Potassium (3.6-5.1) mmol/L Chloride (96-114) mmol/L Carbon Dioxide (20-32) mmol/L Anion Gap (7-15) mEq/L BUN (7-30) mg/dL Creatinine (0.5-1.5) mg/dL Estimated Creat Clear Estimated GFR ml/min Glucose (60-115) mg/dL Lactate 1.6 (0.5-1.9) mmol/L Calcium (8.4-10.6) mg/dL Total Bilirubin (0.1-1.5) mg/dL Direct Bilirubin (0.0-0.5) mg/dL AST (12-35) U/L ALT (4-50) U/L Alkaline Phosphatase (40-150) U/L C-Reactive Protein (0.5-1.0) mg/dL Total Protein (6.0-8.3) g/dL Albumin (3.3-5.0) g/dL Lipase (23-300) U/L Lab Acknowledgement Test Added POC Troponin I (0.01-0.04) ng/ml Imaging Data US - abdomen: Attestation: I have reviewed the pertinent imaging results. Radiologist's impression: Patient: Sixto Zapata MR#: [id number] : 1965 Acct:[id number] Loc: ED Service Date: 07/09/[address]: Ordering Physician: Rolanda Wilson M.D. Date of Service: 07/09/24 Procedure(s): US abdomen limited Accession Number(s): [id number] cc: Rolanda Wilson M.D.; Provider,Not a Local~ For Patients: As a result of the Cures Act, medical imaging exams and procedure reports are released immediately into your electronic medical record. You may view this report before your referring provider. If you have questions, please contact your health care provider. INDICATION: RUQ PAIN COMPARISON: CT abdomen/pelvis on February 09, 2024 TECHNIQUE: Ultrasound abdomen complete. Real time smith scale imaging and color Doppler analysis was performed of the abdomen. FINDINGS: Liver: The liver is normal in size measuring 15.6 cm in length. Mildly increased hepatic echogenicity, suggestive of diffuse hepatic steatosis. No focal liver lesions identified. Gallbladder: The gallbladder contains sludge and numerous gallstones. There is slight gallbladder wall thickening measuring 0.4 centimeters and some regions of suspected gallbladder wall calcifications. No pericholecystic fluid. Positive sonographic Mcclelland sign. Bile ducts: The common bile duct measures 5 mm in diameter. Pancreas: Not visualized Right kidney: The right kidney measures 11.4 cm in length. No hydronephrosis, calculus, or mass. Vascular: Normal caliber abdominal aorta where imaged. The main portal vein is patent with normal flow direction. IMPRESSION: 1. Cholelithiasis with sonographic findings suggestive of acute cholecystitis to include mild gallbladder wall thickening and positive sonographic Mcclelland`s sign; recommend consultation with surgery. 2. Mild diffuse hepatic steatosis. No suspicious hepatic lesions. Dictated by Aaron Sutton MD @ 07/09/2024 9:38:13 AM Discharge Plan Discharge Clinical Impression: Acute cholecystitis Patient Disposition: Admitted As Observation
--- OUTSIDE RECORDS SUMMARY | 2024-07-09 10:00 | XMS_ITS | Clinical Summary ---
Author Organization [facility] Address [address] [place] [id number] Care Team Providers Care Shade Bander Name Role Phone Gilberto Avelar MD Primary [...] patch, one 5 sec run Non-ST elevation [place] (NSTEMI) 04/27/2021 Overview (03/25/2024): Questionable. 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 Not on file Not on file Obstetrics History Last Filed Vital Signs Vital Sign Reading Time Taken Comments Blood Pressure 201/122 07/09/2024 7:13 AM HAND NAILER Pulse 88 07/09/2024 7:13 AM HAND NAILER Temperature 36.4 C (97.6 F) 07/09/2024 7:13 AM HAND NAILER Respiratory Rate 16 06/13/2017 2:42 PM HAND NAILER Oxygen Saturation 98% 07/09/2024 7:13 AM HAND NAILER Inhaled Oxygen Concentration - - Weight 92.1 kg (203 lb) 03/25/2024 3:05 PM HAND NAILER Height 185.4 cm (6' 1) 09/25/2022 9:31 [...] Additional history exists COVID-19 vaccine series ( - season) 2024 RSV vaccine for adults or [...] REFLEX MEASURED LDL Routine 04/28/2021 10:01 AM HAND NAILER Family history of early CAD from Last 3 Months or Most Recently Relevant to Health Maintenance Results * (ABNORMAL) LIPID PANEL W REFLEX MEASURED LDL (04/28/2021 10:01 AM HAND NAILER) CHOLESTEROL,TOTAL 203(H) 100 - 199 mg/dL 04/28/2021 5:50 PM HAND NAILER [facility] TRIGLYCERIDES 163(H) <150 mg/dL 04/28/2021 5:50 PM HAND NAILER [facility] HDL CHOLESTEROL 32(L) >40 mg/dL 5:50 PM HAND NAILER [facility] NON-HDL CHOLESTEROL 171(H) <145 mg/dl 04/28/2021 5:50 PM HAND NAILER [facility] CHOL/HDL RATIO 6.34(H) <4.50 04/28/2021 5:50 PM HAND NAILER [facility] LDL CHOLESTEROL 138(H) <=130 mg/dL 04/28/2021 5:50 PM HAND NAILER [facility] VLDL CHOLESTEROL 33(H) <=30 mg/dL 04/28/2021 5:50 PM HAND NAILER [facility] PROVIDER ORDERED STATUS RANDOM 04/28/2021 5:50 PM HAND NAILER [facility] Blood BLOOD SPECIMEN / Unknown Butterfly / Unknown 04/28/2021 10:01 AM HAND NAILER 04/28/2021 10:01 AM HAND NAILER us Laci Davis DO CHEMISTRY Final Result [facility] [address] [place] [address], from Last 3 Months or Most Recently Relevant to Health Maintenance Insurance jellyfish Care Teams Shade Bander Relationship Specialty Start Date End Date Gilberto Avelar MD [address] [place], [place] [id number] PCP - General Family Practice 03/25/24
--- OUTSIDE RECORDS SUMMARY | 2024-07-09 10:00 | XMS_ITS | Continuity of Care Document ---
Author Name [facility] Organization [facility] Care Team Providers Care School Program Director Name Role Phone [facility] Unavailable Unavailable Procedures Combined list of: 1) Procedures from Department of Veterans Affairs facilities going back up to thelast 18 months, not all OR non-surgical procedures are included; 2) All procedures from the Department of Defense facilities. Procedure Procedure Type Code Date Perfomer Comments Dimitri flores HEPATITIS B VACCINE (HEPB), ADULT DOSAGE, 3 DOSE SCHEDULE, FOR INTRAMUSCULAR USE 02/15/2004 [facility] MENINGOCOCCAL POLYSACCHARIDE VACCINE, SEROGROUPS A, C, Y, W-135, QUADRIVALENT (MPSV4), FOR SUBCUTANEOUS USE 04/14/2003 [facility] HEPATITIS B VACCINE (HEPB), ADULT DOSAGE, 3 DOSE SCHEDULE, FOR INTRAMUSCULAR USE 04/13/2003 [facility] PSYCHIATRIC DIAGNOSTIC INTERVIEW EXAMINATION 04/12/2003 [facility] PSYCHIATRIC DIAGNOSTIC INTERVIEW EXAMINATION 04/09/2003 [facility] INDIVIDUAL PSYCHOTHERAPY, INSIGHT ORIENTED, BEHAVIOR MODIFYING AND/OR SUPPORTIVE, IN AN OFFICE OR OUTPATIENT FACILITY, APPROXIMATELY 20 TO 30 MINUTES [id number] WITH THE PATIENT 03/25/2003 [facility] ANTHRAX VACCINE, FOR SUBCUTANEOUS OR INTRAMUSCULAR USE 03/23/2003 [facility] TETANUS AND DIPHTHERIA TOXOIDS (TD) ADSORBED [...]
[2024-07-09 10:48] LABS: Lactate Sepsis 2 Hour 1.6 mmol/L (0.5-1.9)
[2024-07-09] MEDS: LACTATED RINGERS 1000 ML 1,000 ML 125 ML IV ×2 (11:06→14:51)
--- NOTE | 2024-07-09 11:15 | P.GSCN_ITS ---
History of Present Illness Consult details Date Seen: 07/09/24 Consult date: 07/09/24 Narrative: The patient is a 5-year-old male who presented to the emergency department today with epigastric pain which began abruptly at 4:00 a.m.. He states that the pain is located across his upper abdomen and is slightly worse on the right. The pain does not radiate to his back. When the pain began he thought maybe he was hungry so he did eat a sandwich at 5:30 a.m. in the morning. This did not help his discomfort. He did not have any nausea or vomiting with this. He has not had any change in bowel habits. No urinary symptoms. He did not have any worsening of heartburn symptoms. He had symptoms similarly back in January when seen in the ER. CT scan was unrevealing except for a hiatal hernia. He was told to take an antacid which she has been taking any assistance not had any issues with heartburn. Denies chest pain or shortness of breath. PFSH [facility] Medical History Hypertension ?I10 - Essential (primary) hypertension (ICD-10) Non-ST elevation myocardial infarction (NSTEMI) ?I21.4 - Non-ST elevation (NSTEMI) myocardial infarction (ICD-10) Surgical History De Quervain's tenosynovitis, left (12/05/22) ?M65.4 - Radial styloid tenosynovitis [de Quervain] (ICD-10) Social History Narrative: The patient previously smoked approximately half a pack a day but has stopped for the last 2 months. 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 What is your current living situation?: I presently have a place to live Problems where you live: no known problems Problems where you live details: none In the past 12 months, utilities in danger of being shut off: yes In past 12 months, lack of transportation kept you from medical appts, meetings, work, or getting things needed for daily living: yes In the past 12 mos, have been you worried that your food would run out before you had money to buy more?: never true In the past 12 mos, the food you bought just didn't last and you didn't have money to buy more?: never true Highest level of school completed/degree received: Bachelor's degree Smoking Status: Former smoker What tobacco products do you use: cigarettes Smoking packs per day: 0.5 Smoking cigarettes per day: 10.0 Years smoked: 40 Smoking pack-years: 20.00 Smoking quit date/years: <= 15 years ago Do you use any of these nicotine containing products: None Second hand tobacco smoke exposure: No How often do you have a drink containing alcohol: never How often do you have six or more drinks on one occasion: Never AUDIT-C Alcohol total score: 0 Non-prescribed substance use: denies use Caffeine: No How often does anyone, including family, friends and others, physically hurt you : never How often does anyone, including family, friends and others, insult or talk down to you: never How often does anyone, including family, friends and others, threaten you with harm: never How often does anyone, including family, friends and others, scream or curse at you: never service: Yes Health Related Social Needs: transportation insecurity (Z59.82) Meds Home Medications and Allergies Home Medications ?Medication ?Instructions ?Recorded ?Confirmed ?Type hydrochlorothiazide 25 mg tablet 25 mg PO DAILY 07/09/24 07/09/24 History lisinopril 40 mg tablet 40 mg PO DAILY 07/09/24 07/09/24 History Allergies Allergy/AdvReac Type Severity Reaction Status Date / Time No Known Drug Allergies Allergy Verified 07/09/24 08:12 Exam Narrative: Exam Narrative: General appearance: Alert, cooperative, and in no distress Eyes: PERRLA, eye lids clear, and sclera white HENT Head: Normocephalic Ears: External ears normal Pulmonary: Breathing nonlabored on room air Cardiovascular Heart: Regular rate Extremities: warm and well perfused Gastrointestinal Abdominal: No scars. Patient is tender in the upper abdomen, particularly in the right upper quadrant with a positive Mcclelland sign. Musculoskeletal: Extremities: Upper: Both upper extremities have normal joint range of motion and intact strength. Lower: Both lower extremities have normal joint range of motion and intact strength. Skin: Normal skin color, texture, and turgor. Neurologic: No focal deficits Psychiatric: Alert, oriented, cooperative, normal affect. Const: Vital Signs, click to edit/add: Vital Signs - 24 hr 07/09/24 08:06 07/09/24 09:20 07/09/24 09:21 Temperature 97.4 F L Pulse Rate 66 Pulse Rate [Pulse Oximeter] 76 Respiratory Rate 18 16 Blood Pressure 149/97 H Blood Pressure [Ri ght Upper Arm] 178/107 H Pulse Oximetry 98 99 98 Oxygen Delivery Me thod Room Air 07/09/24 10:48 Temperature Pulse Rate 69 Pulse Rate [Pulse Oximeter] Respiratory Rate 16 Blood Pressure 132/94 H Blood Pressure [Ri ght Upper Arm] Pulse Oximetry 98 Oxygen Delivery Me thod Room Air Results Labs Labs: Abnormal lab results 07/09/24 Range/Units 08:30 Lactate 2.5 H (0.5-1.9) mmol/L C-Reactive Protein 1.2 H (0.5-1.0) mg/dL Diabetes panel 07/09/24 Range/Units 08:30 Sodium 143 (135-149) mmol/L Potassium 4.3 (3.6-5.1) mmol/L Chloride 108 (96-114) mmol/L Carbon Dioxide 27 (20-32) mmol/L BUN 15 (7-30) mg/dL Creatinine 1.1 (0.5-1.5) mg/dL Glucose 91 (60-115) mg/dL Calcium 9.4 (8.4-10.6) mg/dL AST 19 (12-35) U/L ALT 16 (4-50) U/L Alkaline Phosphatase 97 (40-150) U/L Total Protein 7.3 (6.0-8.3) g/dL Albumin 4.1 (3.3-5.0) g/dL Calcium panel 07/09/24 Range/Units 08:30 Calcium 9.4 (8.4-10.6) mg/dL Albumin 4.1 (3.3-5.0) g/dL Pituitary panel 07/09/24 Range/Units 08:30 Sodium 143 (135-149) mmol/L Potassium 4.3 (3.6-5.1) mmol/L Chloride 108 (96-114) mmol/L Carbon Dioxide 27 (20-32) mmol/L BUN 15 (7-30) mg/dL Creatinine 1.1 (0.5-1.5) mg/dL Glucose 91 (60-115) mg/dL Calcium 9.4 (8.4-10.6) mg/dL Adrenal panel 07/09/24 Range/Units 08:30 Sodium 143 (135-149) mmol/L Potassium 4.3 (3.6-5.1) mmol/L Chloride 108 (96-114) mmol/L Carbon Dioxide 27 (20-32) mmol/L BUN 15 (7-30) mg/dL Creatinine 1.1 (0.5-1.5) mg/dL Glucose 91 (60-115) mg/dL Calcium 9.4 (8.4-10.6) mg/dL Total Bilirubin 0.3 (0.1-1.5) mg/dL AST 19 (12-35) U/L ALT 16 (4-50) U/L Alkaline Phosphatase 97 (40-150) U/L Total Protein 7.3 (6.0-8.3) g/dL Albumin 4.1 (3.3-5.0) g/dL All other labs normal. Imaging Abdomen CT scan report/results: report reviewed and image reviewed Abdominal ultrasound report/results: report reviewed and image reviewed Additional studies: Ultrasound of the abdomen done today: IMPRESSION: 1. Cholelithiasis with sonographic findings suggestive of acute cholecystitis to include mild gallbladder wall thickening and positive sonographic Mcclelland`s sign; recommend consultation with surgery. 2. Mild diffuse hepatic steatosis. No suspicious hepatic lesions. Dictated by Aaron Sutton MD @ 07/09/2024 9:38:[address] abdomen IMPRESSION: 1. Small hiatal hernia. 2. Remainder of the exam is unremarkable. No other acute or specific findings to explain epigastric abdomen pain. Dictated by Mamadou Bennett MD @ 02/09/2024 6:47:43 AM Progress Note:A&P Assessment and plan (1) Acute cholecystitis: Status: Acute Plan The patient is a 5-year-old male with acute cholecystitis. I explained that the treatment for this is laparoscopic cholecystectomy. We discussed the procedure as well as risks and benefits of surgery which include bleeding, infection, bile leak, conversion to open or injury to other structures, specifically the common bile duct. We also discussed recovery. He is agreeable to proceed and signed informed consent. I did ask the hospitalist to see him to ensure no cardiac concerns prior to surgery. He last ate at 5:30 a.m. in the morning so will wait 8 hours before proceeding with surgery.
--- NOTE | 2024-07-09 13:02 | CRLHL7_ITS ---
For Patients: As a result of the Cures Act, medical imaging exams and procedure reports are released immediately into your electronic medical record. You may view this report before your referring provider. If you have questions, please contact your health care provider. INDICATION: : pre op. recent cough. recent/former smoker COMPARISON: Chest radiograph on September 14, 2022 TECHNIQUE: One view(s) of the chest FINDINGS: The cardiomediastinal silhouette and pulmonary vasculature are unremarkable. There is no focal airspace consolidation, pleural effusion, or pneumothorax. No displaced fractures. IMPRESSION: No acute cardiopulmonary process. Dictated by Aaron Sutton MD @ 07/09/2024 1:33:42 PM (Electronically Signed)
--- NOTE | 2024-07-09 13:05 | PM.IMHP1 ---
Hospitalist- H&P: HPI History of Present Illness Date Seen: 07/09/24 Chief complaint: hernia Narrative: Sixto Zapata is a 59 year old male past medical history significant for hypertension, history of V-tach, chronic right knee pain, hiatal hernia is admitted to the medical floor from the ED for acute cholecystitis with plan to proceed to OR for cholecystectomy with Dr. Wooten. Patient reports he was feeling well, his usual self until last evening. He and his daughter had stop to have dinner at [employer]. Shortly thereafter he developed some abdominal discomfort. He woke this morning with similar discomfort which progressed, worsening during early course of the morning while at work. He was seen in the same-day clinic and referred to ED where ultrasound confirmed acute cholecystitis. ED provider discussed with General surgery, Dr. Wooten, who plans to take him to the OR today for cholecystectomy. Patient denies recent fevers. No nausea or vomiting. Last BM was today. No change in urination. Last meal was around 6:00 a.m. this morning. Surgical history includes myringotomy as a child, DeQuervain's release 2022 . No known complications. No personal or family history of bleeding disorders is known. Denies alcohol use. Quit smoking 60 days ago. Has recently had a mild productive cough. Will obtain CXR preoperatively. EKG shows sinus rhythm, bradycardia, ventricular rate 58, QTC 396 Review of Systems Narrative: REVIEW OF SYSTEMS: Complete review of systems performed and negative unless otherwise stated in HPI or below. [facility] Medical History (Updated 07/09/24 @ 15:33 by Padmaja Sheriff PA-C) Hypertension ?I10 - Essential (primary) hypertension (ICD-10) Non-ST elevation myocardial infarction (NSTEMI) ?I21.4 - Non-ST elevation (NSTEMI) myocardial infarction (ICD-10) Surgical History De Quervain's tenosynovitis, left (12/05/22) ?M65.4 - Radial styloid tenosynovitis [de Quervain] (ICD-10) Social History Narrative: The patient previously smoked approximately half a pack a day but has stopped for the last 2 months. 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 What is your current living situation?: I presently have a place to live Problems where you live: no known problems Problems where you live details: none In the past 12 months, utilities in danger of being shut off: yes In past 12 months, lack of transportation kept you from medical appts, meetings, work, or getting things needed for daily living: yes In the past 12 mos, have been you worried that your food would run out before you had money to buy more?: never true In the past 12 mos, the food you bought just didn't last and you didn't have money to buy more?: never true Highest level of school completed/degree received: Bachelor's degree Smoking Status: Former smoker What tobacco products do you use: cigarettes Smoking packs per day: 0.5 Smoking cigarettes per day: 10.0 Years smoked: 40 Smoking pack-years: 20.00 Smoking quit date/years: <= 15 years ago Do you use any of these nicotine containing products: None Second hand tobacco smoke exposure: No How often do you have a drink containing alcohol: never How often do you have six or more drinks on one occasion: Never AUDIT-C Alcohol total score: 0 Non-prescribed substance use: denies use Caffeine: No How often does anyone, including family, friends and others, physically hurt you: never How often does anyone, including family, friends and others, insult or talk down to you: never How often does anyone, including family, friends and others, threaten you with harm: never How often does anyone, including family, friends and others, scream or curse at you: never service: Yes Health Related Social Needs: transportation insecurity (Z59.82) Meds Home Medications and Allergies Home Medications ?Medication ?Instructions ?Recorded ?Confirmed ?Type hydrochlorothiazide 25 mg tablet 25 mg PO DAILY 07/09/24 07/09/24 History lisinopril 40 mg tablet 40 mg PO DAILY 07/09/24 07/09/24 History Allergies Allergy/AdvReac Type Severity Reaction Status Date / Time No Known Drug Allergies Allergy Verified 07/09/24 08:12 Exam Narrative: Exam Narrative: PHYSICAL EXAM General: Pleasant, conversant, NAD HEENT: Normocephalic, atraumatic, sclera white, EOMI, oral mucosa moist Cardiovascular: RRR, S1S2. No pitting edema Pulmonary: CTA bilaterally without rhonchi, rales, expiratory wheezes. No dyspnea Abdominal: Mildly distended, tender to palpation mid epigastric, right upper quadrant with guarding Neurological: Alert, answering questions appropriately, cranial nerves intact, no focal findings Extremities: No gross joint deformity or swelling. AROMI. Neurovascularly intact Skin: Warm, dry. Const: Vital Signs, click to edit/add: Vital Signs - 24 hr 07/09/24 08:06 07/09/24 09:20 07/09/24 09:21 Temperature 97.4 F L Pulse Rate 66 Pulse Rate [Left P ulse Oximeter] Pulse Rate [Pulse Oximeter] 76 Respiratory Rate 18 16 Blood Pressure 149/97 H Blood Pressure [Ri ght Arm] Blood Pressure [Ri ght Upper Arm] 178/107 H Pulse Oximetry 98 99 98 Oxygen Delivery Me thod Room Air 07/09/24 10:48 07/09/24 11:58 07/09/24 12:26 Temperature 97.6 F Pulse Rate 69 Pulse Rate [Left P ulse Oximeter] 79 Pulse Rate [Pulse Oximeter] Respiratory Rate 16 16 Blood Pressure 132/94 H Blood Pressure [Ri ght Arm] 141/96 H Blood Pressure [Ri ght Upper Arm] Pulse Oximetry 98 98 Oxygen Delivery Me thod Room Air Room Air Room Air Hospitalist - H&P: Result Labs Labs: Short CBC 07/09/24 Range/Units 08:30 WBC 7.99 (4.50-11.00) K/uL Hgb 13.9 (13.5-17.5) gm/dL Hct 42.5 (37.0-53.0) % Plt Count 375 (140-440) K/uL BMP 07/09/24 08:30 Sodium 143 Potassium 4.3 Chloride 108 Carbon Dioxide 27 BUN 15 Creatinine 1.1 Glucose 91 Calcium 9.4 Liver Function 07/09/24 Range/Units 08:30 Total Bilirubin 0.3 (0.1-1.5) mg/dL Direct Bilirubin 0.2 (0.0-0.5) mg/dL AST 19 (12-35) U/L ALT 16 (4-50) U/L Alkaline Phosphatase 97 (40-150) U/L Albumin 4.1 (3.3-5.0) g/dL ECG ECG interpretation date: 07/09/24 Interpretation: Sinus rhythm, bradycardia, ventricular rate 58, QTC 396 Imaging Abdominal ultrasound: Attestation: I have reviewed the pertinent imaging results. Radiologist's impression: Liver: The liver is normal in size measuring 15.6 cm in length. Mildly increased hepatic echogenicity, suggestive of diffuse hepatic steatosis. No focal liver lesions identified. Gallbladder: The gallbladder contains sludge and numerous gallstones. There is slight gallbladder wall thickening measuring 0.4 centimeters and some regions of suspected gallbladder wall calcifications. No pericholecystic fluid. Positive sonographic Mcclelland sign. Bile ducts: The common bile duct measures 5 mm in diameter. Pancreas: Not visualized Right kidney: The right kidney measures 11.4 cm in length. No hydronephrosis, calculus, or mass. Vascular: Normal caliber abdominal aorta where imaged. The main portal vein is patent with normal flow direction. IMPRESSION: 1. Cholelithiasis with sonographic findings suggestive of acute cholecystitis to include mild gallbladder wall thickening and positive sonographic Mcclelland`s sign; recommend consultation with surgery. 2. Mild diffuse hepatic steatosis. No suspicious hepatic lesions. Chest x-ray: Attestation: I have reviewed the pertinent imaging results. Radiologist's impression: The cardiomediastinal silhouette and pulmonary vasculature are unremarkable. There is no focal airspace consolidation, pleural effusion, or pneumothorax. No displaced fractures. IMPRESSION: No acute cardiopulmonary process. Assessment and Plan Assessment and plan (1) Acute cholecystitis: Problem comment: -ultrasound shows cholelithiasis with sonographic findings suggestive of acute cholecystitis -afebrile, no leukocytosis, lactate 2.5, 1.6 on repeat following IVF -NPO, pain and nausea management as needed -to OR with Dr. Wooten on 07/09/2024, postoperative recommendations to be determined Status: Acute (2) Hypertension: Problem comment: -resume home medications tomorrow morning Status: Acute (3) Hepatic steatosis: Problem comment: -incidental finding on ultrasound, LFTs unremarkable. Outpatient follow-up Status: Acute Total Time Spent Total Time Spent: Today I spent 75 minutes seeing the patient, discussing the patient with ER staff, reviewing Expanse and Epic notes/diagnostics, discussing the care plan with our team that includes social work, PT/OT, pharmacy, RT, shelter and documenting my impressions and plan in the medical record.
--- OUTSIDE RECORDS SUMMARY | 2024-07-09 13:48 | XMS_ITS | Clinical Summary ---
Author Organization [facility] Address [address] [place] [address] Care Team Providers Care Clinical Nursing Manager Name Role Phone Gilberto Avelar MD Primary [...] patch, one 5 sec run Non-ST elevation MS (NSTEMI) 04/27/2021 Overview (03/25/2024): Questionable. 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 Not on file Not on file Obstetrics History Last Filed Vital Signs Vital Sign Reading Time Taken Comments Blood Pressure 201/122 07/09/2024 7:13 AM APPLICATION PROGRAMMER ANALYST Pulse 88 07/09/2024 7:13 AM APPLICATION PROGRAMMER ANALYST Temperature 36.4 C (97.6 F) 07/09/2024 7:13 AM APPLICATION PROGRAMMER ANALYST Respiratory Rate 16 06/13/2017 2:42 PM APPLICATION PROGRAMMER ANALYST Oxygen Saturation 98% 07/09/2024 7:13 AM APPLICATION PROGRAMMER ANALYST Inhaled Oxygen Concentration - - Weight 92.1 kg (203 lb) 03/25/2024 3:05 PM APPLICATION PROGRAMMER ANALYST Height 185.4 cm (6' 1) 09/25/2022 9:31 [...] REFLEX MEASURED LDL Routine 04/28/2021 10:01 AM APPLICATION PROGRAMMER ANALYST Family history of early CAD from Last 3 Months or Most Recently Relevant to Health Maintenance Results * (ABNORMAL) LIPID PANEL W REFLEX MEASURED LDL (04/28/2021 10:01 AM APPLICATION PROGRAMMER ANALYST) CHOLESTEROL,TOTAL 203(H) 100 - 199 mg/dL 04/28/2021 5:50 PM APPLICATION PROGRAMMER ANALYST [facility] TRIGLYCERIDES 163(H) <150 mg/dL 04/28/2021 5:50 PM APPLICATION PROGRAMMER ANALYST [facility] HDL CHOLESTEROL 32(L) >40 mg/dL 5:50 PM APPLICATION PROGRAMMER ANALYST [facility] NON-HDL CHOLESTEROL 171(H) <145 mg/dl 04/28/2021 5:50 PM APPLICATION PROGRAMMER ANALYST [facility] CHOL/HDL RATIO 6.34(H) <4.50 04/28/2021 5:50 PM APPLICATION PROGRAMMER ANALYST [facility] LDL CHOLESTEROL 138(H) <=130 mg/dL 04/28/2021 5:50 PM APPLICATION PROGRAMMER ANALYST [facility] VLDL CHOLESTEROL 33(H) <=30 mg/dL 04/28/2021 5:50 PM APPLICATION PROGRAMMER ANALYST [facility] TR[facility] PROVIDER ORDERED STATUS RANDOM 04/28/2021 5:50 PM APPLICATION PROGRAMMER ANALYST [facility] Blood BLOOD SPECIMEN / Unknown Butterfly / Unknown 04/28/2021 10:01 AM APPLICATION PROGRAMMER ANALYST 04/28/2021 10:01 AM APPLICATION PROGRAMMER ANALYST us Laci Davis DO CHEMISTRY Final Result [facility] [address] [place] [address], from Last 3 Months or Most Recently Relevant to Health Maintenance Insurance [employer] Care Teams Clinical Nursing Manager Relationship Specialty Start Date End Date Gilberto Avelar MD [address] [place], [place] [phone] PCP - General Family Practice 03/25/24
--- NOTE | 2024-07-09 13:49 | PM.GSPRC ---
Operative Note Date of procedure: 07/09/24 Pre-op diagnosis: Acute cholecystitis Post-op diagnosis: Same Type of Procedure: Laparoscopic cholecystectomy Indications: The patient is a 59-year-old male who presented to the emergency department with severe epigastric and right upper quadrant pain. Workup revealed acute cholecystitis. I recommended laparoscopic cholecystectomy and after discussion of risks and benefits of the procedure he agreed to proceed. Procedure Description: After discussing the risks and benefits of the procedure, the patient signed informed consent.? The operative site was marked and the patient was brought to the operating room and placed on the operating table in supine position.? Care was taken to pad the patient's pressure points.?? The patient was then intubated by anesthesia.?? The operative site was then prepped and draped in the usual sterile fashion.? A time-out was then performed. Entrance to the abdomen was gained via a 5 mm Visiport in the left upper quadrant. The abdomen was insufflated and briefly surveyed for signs of injury. There was none. A 10 mm umbilical port was placed as well as 2 working ports along the right costal margin, all under direct vision. The patient was then placed in reverse Trendelenburg position with the right side up. The gallbladder was noted to be tense. A needle was advanced into the abdomen to aspirate the gallbladder. Thick bile emerged from the hole around the needle. This was suction from the abdomen. The gallbladder was then able to be grasped by the fundus and was retracted cephalad. The infundibulum was grasped. A combination of hook cautery and blunt dissection was used to carefully dissect out the cystic duct and artery until they could clearly be seen entering the gallbladder without any intervening structures. The gallbladder was very inflamed and edematous. There was a stone impacted in the proximal cystic duct. I clipped the artery with 2 clips proximal and 1 clip distal and divided this. I was then able to push the stone into the gallbladder to facilitate placing clips across the cystic duct. Two clips were placed distally and 1 proximally on the gallbladder. This was then transected with scissor. The gallbladder was then taken off the liver bed. A small bleeding vessel in the liver red was clipped for hemostasis. The gallbladder was then removed from the abdomen using an Endo-Catch bag. The gallbladder bed was surveyed for hemostasis which appeared excellent. The bile sludge containing tiny stone which had spilled from the gallbladder was suctioned from the abdomen and the abdomen was irrigated. The ports were then removed and the abdomen desufflated. The umbilical port fascia was closed with 0 Vicryl. The skin was closed with absorbable subcuticular suture. Sterile dressings were applied. Instrument sponge and needle counts were correct at the end of the case. The patient was then woken and transferred to the PACU in stable condition. ? The patient tolerated the procedure well. Findings: Inflamed gallbladder with stone impacted in the cystic neck [facility] Surgeon: Comfort Wooten MD Estimated blood loss (mL): 25 Specimen: Gallbladder Condition: stable Disposition: PACU
[2024-07-09] MEDS: PIPERACILLIN/TAZOBACTAM 3.375 GM INJ IVPB (13:55)
[2024-07-09 13:58] LABS: Prothrombin Time 13.8 Seconds
--- NOTE | 2024-07-09 14:48 | P.ANES_ITS ---
Anesthesia Charges Start Date/Time Anesthesia Start Date: 07/09/24 Anesthesia Start Time: 13:33 Stop Date/Time Anesthesia Stop Date: 07/09/24 Anesthesia Stop Time: 15:23 Coding CPT Codes CPT Codes: ANESTH SURG UPPER ABDOMEN - 91682 ([id number]) P2 - PATIENT W/MILD SYST DISEASE, QK - SENIOR RESERVATIONS AGENT 2-4 CNCRNT ANES PROC, QX - MUNICIPAL MAINTENANCE WORKER SVC W/ MD MED DIRECTION
--- NOTE | 2024-07-09 14:48 | W.ANESCHARGE ---
Anesthesia Charges Start Date/Time Anesthesia Start Date: 07/09/24 Anesthesia Start Time: 13:33 Stop Date/Time Anesthesia Stop Date: 07/09/24 Anesthesia Stop Time: 15:23 Coding CPT Codes CPT Codes: ANESTH SURG UPPER ABDOMEN - 61219 ([id number]) P2 - PATIENT W/MILD SYST DISEASE, QK - FLOOR STEWARD/STEWARDESS 2-4 CNCRNT ANES PROC, QX - NEUROSURGERY SPINE PHYSICIAN SVC W/ MD MED DIRECTION
[2024-07-09] MEDS: BUPIVACAINE 0.25% 30 ML INJECTION (14:53)
--- NOTE | 2024-07-09 15:33 | P.ANES_ITS ---
Anesthesia Charges Start Date/Time Anesthesia Start Date: 07/09/24 Anesthesia Start Time: 13:33 Stop Date/Time Anesthesia Stop Date: 07/09/24 Anesthesia Stop Time: 15:23 Coding CPT Codes CPT Codes: ANESTH SURG UPPER ABDOMEN - 42209 ([id number]) P2 - PATIENT W/MILD SYST DISEASE, QK - EVENT COORDINATOR 2-4 CNCRNT ANES PROC, QX - LOCKSTITCH BINDER SVC W/ MD MED DIRECTION
--- NOTE | 2024-07-09 15:33 | W.ANESCHARGE ---
Anesthesia Charges Start Date/Time Anesthesia Start Date: 07/09/24 Anesthesia Start Time: 13:33 Stop Date/Time Anesthesia Stop Date: 07/09/24 Anesthesia Stop Time: 15:23 Coding CPT Codes CPT Codes: ANESTH SURG UPPER ABDOMEN - 88280 ([id number]) P2 - PATIENT W/MILD SYST DISEASE, QK - RICE MILLING SUPERVISOR 2-4 CNCRNT ANES PROC, QX - ELECTRONIC DRAFTER SVC W/ MD MED DIRECTION
[2024-07-09] MEDS: ONDANSETRON 2 MG/ML inj IVP ×2 (17:58→18:42)
== END 2024-07-09 19:35 | disposition home or self-care (01) ==
LOC: ED 11:33 → MEDSURG 13:07 → SS 13:47 → MEDSURG 13:47
PROVIDERS: Physician Assistant; Emergency Provider Emergency Medicine; Visit Provider Surgery
PROC: 0FT44ZZ Resection of Gallbladder, Percutaneous Endoscopic Approach (ICD-10-PCS; CPT 47562; principal; 2024-07-09 13:00)
DX: K80.01 Calculus of gallbladder with acute cholecystitis with obstruction (principal); R10.13 Epigastric pain; I10 Essential (primary) hypertension; I25.2 Old myocardial infarction; K76.0 Fatty (change of) liver, not elsewhere classified
CPT/HCPCS: 47562; 00790; 36415; 71045; 76705; 80048; 80076; 83605; 83690; 84484; 85025; 85610; 86140; 88304; 93005; 94761; 99284; 99285; J0330; J0665; J1100; J1171; J1885; J2250; J2405; J2543; J2704; J2710; J3010; J3490; J7030; J7120

== ENCOUNTER 2025-03-23 07:37 | Inpatient (IN) | payer OTHER, BC, SELFPAY ==
[2025-03-23] VITALS (53 sets, daily range): BP systolic 100–138; BP diastolic 65–106; PULSE 64–119; RESP 0–34; TEMP 36.2–36.7; O2SAT 92–100; BMI 27.0; BMI 27.1
--- OUTSIDE RECORDS SUMMARY | 2025-03-23 07:41 | XMS_ITS | Clinical Summary ---
Author Organization [facility] Address [address] [place] [address] Care Team Providers Care Environmental Science Professor Name Role Phone Gilberto Avelar MD Primary Care P rovider Allergies No known active allergies Medications lisinopriL (PRINIVIL; ZESTRIL) 40 mg tabletIndications :Essential hypertension Take 1 Tablet (40 mg) by mouth once daily. 90 Tablet 02/11/2025 Active hydroCHLOROthiazi de 25 mg tabletIndications :Essential hypertension Take 1 Tablet (25 mg) by mouth once daily. 90 Tablet 02/11/2025 Active Active Problems Problem Noted Date Diagnosed Date VT (ventricular tachycardia) 06/26/2021 Overview (06/26/2021): Per Zio patch, one 5 sec run Non-ST elevation DC (NSTEMI) 04/27/2021 Overview (03/25/2024): Questionable. 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 file Not on file Not on file Obstetrics History Last Filed Vital Signs Vital Sign Reading Time Taken Comments Blood Pressure 111/81 10/16/2024 12:45 PM CDT Pulse 88 07/09/2024 7:13 AM GOVERNMENT PROPERTY INSPECTOR Temperature 36.4 C (97.6 F) 07/09/2024 7:13 AM GOVERNMENT PROPERTY INSPECTOR Respiratory Rate 16 06/13/2017 2:42 PM GOVERNMENT PROPERTY INSPECTOR Oxygen Saturation 98% 07/09/2024 7:13 AM GOVERNMENT PROPERTY INSPECTOR Inhaled Oxygen Concentration - - Weight 92.1 kg (203 lb) 03/25/2024 3:05 PM GOVERNMENT PROPERTY INSPECTOR Height 185.4 cm (6' 1) 09/25/2022 9:31 AM CDT Body Mass Index 26.78 09/25/2022 9:31 AM CDT Plan of Treatment Health Maintenance Due Date Last Done Comments HIV for age 15-65 1979 Hepatitis C screening for age 18-79 1982 Pneumococcal series for age 50+ (1 of 2 - PCV) 1983 BMI (ht and wt on same day) for age 18+ 09/26/2023 09/25/2022, 09/26/2021, 06/26/2021, Additional history exists RSV vaccine for adults or (1 - Risk 60-74 years 1-dose series) 2024 Colonoscopy through age 75 09/17/2024 09/17/2014 Influenza Vaccine (#1) 2025 , 01/22/2019, 01/22/2019, Additional history exists Depression screening for age 12+ 03/25/2025 03/25/2024, 06/26/2021, 11/30/2019, Additional history exists Lipids for age 45-75 04/28/2026 04/28/2021, 11/30/2019, 08/20/2016, Additional history exists Tetanus booster 02/18/2034 02/19/2024, 09/07/2012 Zoster (shingles) series for age 50+ Completed 10/20/2018, 08/20/2018 Hepatitis B series for 19+ Aged Out N o longer eligible based on patient's age to complete this topic Procedures Procedure Name Priority Date/Time Associated Diagnosis Comments LIPID PANEL W REFLEX MEASURED LDL Routine 04/28/2021 10:01 AM GOVERNMENT PROPERTY INSPECTOR Family history of early CAD from Last 3 Months or Most Recently Relevant to Health Maintenance Results * (ABNORMAL) LIPID PANEL W REFLEX MEASURED LDL (04/28/2021 10:01 AM GOVERNMENT PROPERTY INSPECTOR) CHOLESTEROL,TOTAL 203(H) 100 - 199 mg/dL 04/28/2021 5:50 PM GOVERNMENT PROPERTY INSPECTOR [facility] TRIGLYCERIDES 163(H) <150 mg/dL 04/28/2021 5:50 PM GOVERNMENT PROPERTY INSPECTOR [facility] HDL CHOLESTEROL 32(L) >40 mg/dL 5:50 PM GOVERNMENT PROPERTY INSPECTOR [facility] TRAL [facility] NON-HDL CHOLESTEROL 171(H) <145 mg/dl 04/28/2021 5:50 PM GOVERNMENT PROPERTY INSPECTOR [facility] CHOL/HDL RATIO 6.34(H) <4.50 04/28/2021 5:50 PM GOVERNMENT PROPERTY INSPECTOR [facility] LDL CHOLESTEROL 138(H) <=130 mg/dL 04/28/2021 5:50 PM GOVERNMENT PROPERTY INSPECTOR [facility] VLDL CHOLESTEROL 33(H) <=30 mg/dL 04/28/2021 5:50 PM GOVERNMENT PROPERTY INSPECTOR [facility] PROVIDER ORDERED STATUS RANDOM 04/28/2021 5:50 PM GOVERNMENT PROPERTY INSPECTOR [facility] Blood BLOOD SPECIMEN / Unknown Butterfly / Unknown 04/28/2021 10:01 AM GOVERNMENT PROPERTY INSPECTOR 04/28/2021 10:01 AM GOVERNMENT PROPERTY INSPECTOR us Laci Davis DO CHEMISTRY Final Result [facility] [address] [place] [address], [place] from Last 3 Months or Most Recently Relevant to Health Maintenance Insurance [employer] Care Teams Environmental Science Professor Relationship Specialty Start Date End Date Gilberto Avelar MD [address] [place] [address] PCP - General Family Practice 03/25/24
--- NOTE | 2025-03-23 08:21 | ED.GENADULT ---
HPI - General Adult General Chief complaint: Syncope/Fainted Stated complaint: Syncopal, fall, hit head Time Seen by Provider: 03/23/25 08:19 History of Present Illness HPI narrative: Arrives with injuries to right shoulder and head after having a syncopal episode [employer]. Reports being at work and suddenly feeling hot and like he could not catch his breath, walked outside to get some air and lost consciousness. Alert and oriented, abrasions to right forehead, eye, and shoulder. VSS, ABCs intact. 59-year-old man presenting to the emergency department following an apparent syncopal event. He was at work and suddenly reports just feeling really hot in his chest and could not catch his breath. Went over to the table and subsequently passed out on to the concrete ground. Struck his right head and right shoulder. Is not having any neck or back pain. There was never any nausea. He is on his knees in front of the bed when I go to see him. He reports feeling already a good deal better. Reports that he was suspected of having a ?heart attack? in this facility at some point in the past and was transferred to [place] where he was determined not to have had one. He is hoping to leave shortly. Asks if standing up in doing 10 jumping jacks would get him out of here. Further information in past medical included here below Complex discussion regarding history of cardiac concern or not. Patient does think that his chest pain is actually related to his hiatal hernia as above. Has had multiple checks in the past for cardiac concerns. NSTEMI appears to date back to 04/26/2021 reviewing outside records at which time patient was in the ER at [facility] for sweating/syncope/rib pain, and was subsequently diagnosed with NSTEMI?recommended hospitalization, but left AMA to go home to take care of his daughter. At that visit, chest x-ray was normal and chest CTA was without any signs of PE. Initial troponin was 0.19 and repeat was 0.12. However, patient did follow-up for CT coronary angiogram shortly thereafter at which time was found to have mild coronary artery atherosclerosis without any obstructive stenosis and overall coronary calcium score of 1. Ziopatch 05/2021 showed largely sinus rhythm with rare vtach (5 beats). Isolated rare SVE/ VE. Discussed recommendation for possible aspirin as well as statin today. Pt declines aspirin in the setting of only possible benefit between 40-59 in pt without cardiac hx, but elevated ASCVD. Unclear as to whether pt historical dx of NSTEMI is true cardiac or not. Pt declines statin at this time after discussion of recommendation to be on it for ASCVD risk outside of NSTEMI hx. Also discussed prior echo ordered, pt is not interested in pursuing echo at this time. Related Data Home Medications ?Medication ?Instructions ?Recorded ?Confirmed hydrochlorothiazide 25 mg tablet 25 mg PO DAILY 07/09/24 03/23/25 lisinopril 40 mg tablet 40 mg PO DAILY 07/09/24 03/23/25 Previous Rx's ?Medication ?Instructions ?Recorded hydrocodone 5 mg-acetaminophen 325 1 - 2 tab PO Q6H PRN Pain #20 tabs 07/09/24 mg tablet Allergies Allergy/AdvReac Type Severity Reaction Status Date / Time No Known Drug Allergies Allergy Verified 03/23/25 07:54 Review of Systems Status of ROS: Reports: 6 or more systems reviewed and unremarkable except as noted in History and below [facility] Medical History Hypertension ?I10 - Essential (primary) hypertension (ICD-10) Non-ST elevation myocardial infarction (NSTEMI) ?I21.4 - Non-ST elevation (NSTEMI) myocardial infarction (ICD-10) Surgical History Status post cholecystectomy ?Z90.49 - Acquired absence of other specified parts of digestive tract (ICD-10) De Quervain's tenosynovitis, left (12/05/22) ?M65.4 - Radial styloid tenosynovitis [de Quervain] (ICD-10) Social History Narrative: The patient previously smoked approximately half a pack a day but has stopped for the last 2 months. 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 What is your current living situation?: I presently have a place to live Problems where you live: no known problems Problems where you live details: none In the past 12 months, utilities in danger of being shut off: yes In past 12 months, lack of transportation kept you from medical appts, meetings, work, or getting things needed for daily living: yes In the past 12 mos, have been you worried that your food would run out before you had money to buy more?: never true In the past 12 mos, the food you bought just didn't last and you didn't have money to buy more?: never true Highest level of school completed/degree received: Bachelor's degree Smoking Status: Former smoker What tobacco products do you use: cigarettes Smoking packs per day: 0.5 Smoking cigarettes per day: 10.0 Years smoked: 40 Smoking pack-years: 20.00 Smoking quit date/years: <= 15 years ago Do you use any of these nicotine containing products: None Second hand tobacco smoke exposure: No How often do you have a drink containing alcohol: never How often do you have six or more drinks on one occasion: Never AUDIT-C Alcohol total score: 0 Non-prescribed substance use: denies use Caffeine: No How often does anyone, including family, friends and others, physically hurt you: never How often does anyone, including family, friends and others, insult or talk down to you: never How often does anyone, including family, friends and others, threaten you with harm: never How often does anyone, including family, friends and others, scream or curse at you: never service: Yes Health Related Social Needs: transportation insecurity (Z59.82) Exam Narrative: Exam Narrative: As noted kneeling on the edge of the bed. Is quite alert. Pupils are 2 mm and equal. Moving all extremities without difficulty. There is large abrasion over the the upper deltoid/distal clavicle on the right. Does not have notable pain to palpation here though. Neck is supple nontender. Back nontender. There is a deep abrasion in the right brow and at the maxillary prominence on the right as well. Heart is tachycardic and irregularly irregular auscultation here. Pulse was noted to be 64 on arrival. Is definitely tachycardic now. Extremities well perfused. Without edema. Const: Vital Signs, click to edit/add: Vital Signs - 24 hr 03/23/25 07:57 03/23/25 08:29 03/23/25 08:45 Temperature 98.1 F Pulse Rate 97 Pulse Rate [Pulse Oximeter] 64 Respiratory Rate 20 16 Blood Pressure 102/80 Blood Pressure [Ri ght Upper Arm] 123/85 Blood Pressure [or thostatic lying] Blood Pressure [or thostatic sitting] Blood Pressure [or thostatic standing ] Pulse Oximetry 98 96 97 Oxygen Delivery Me od Room Air 03/23/25 08:46 03/23/25 08:47 03/23/25 08:48 Temperature Pulse Rate 93 96 97 Pulse Rate [Pulse Oximeter] Respiratory Rate 17 9 L Blood Pressure 130/88 Blood Pressure [Ri ght Upper Arm] Blood Pressure [or thostatic lying] Blood Pressure [or thostatic sitting] Blood Pressure [or thostatic standing ] Pulse Oximetry 100 99 Oxygen Delivery Me thod 03/23/25 09:04 03/23/25 09:05 03/23/25 09:15 Temperature Pulse Rate 101 H 113 H 90 Pulse Rate [Pulse Oximeter] Respiratory Rate 13 17 23 Blood Pressure 116/106 H Blood Pressure [Ri ght Upper Arm] Blood Pressure [or thostatic lying] Blood Pressure [or thostatic sitting] Blood Pressure [or thostatic standing ] Pulse Oximetry 99 98 96 Oxygen Delivery Mt thod 03/23/25 09:30 03/23/25 09:31 03/23/25 09:57 Temperature Pulse Rate 106 H 99 110 H Pulse Rate [Pulse Oximeter] Respiratory Rate 9 L 19 25 H Blood Pressure 133/105 H Blood Pressure [Ri ght Upper Arm] Blood Pressure [or thostatic lying] Blood Pressure [or thostatic sitting] Blood Pressure [or thostatic standing ] Pulse Oximetry 99 98 98 Oxygen Delivery Me thod 03/23/25 10:00 03/23/25 10:01 03/23/25 10:15 Temperature Pulse Rate 103 H 92 93 Pulse Rate [Pulse Oximeter] Respiratory Rate 10 L 5 L 7 L Blood Pressure 129/99 H Blood Pressure [Ri ght Upper Arm] Blood Pressure [or thostatic lying] Blood Pressure [or thostatic sitting] Blood Pressure [or thostatic standing ] Pulse Oximetry 97 98 [facility] 03/23/25 10:30 03/23/25 10:31 03/23/25 10:41 Temperature Pulse Rate 91 88 98 Pulse Rate [Pulse Oximeter] Respiratory Rate 25 H 0 L 17 Blood Pressure 117/91 H 119/91 H Blood Pressure [Ri ght Upper Arm] Blood Pressure [or thostatic lying] Blood Pressure [or thostatic sitting] Blood Pressure [or thostatic standing ] Pulse Oximetry 93 98 97 Oxygen Delivery Me thod 03/23/25 10:42 03/23/25 10:44 03/23/25 10:45 Temperature Pulse Rate 119 H 106 H Pulse Rate [Pulse Oximeter] Respiratory Rate 15 16 Blood Pressure 115/88 Blood Pressure [Ri ght Upper Arm] Blood Pressure [or thostatic lying] 119/91 H Blood Pressure [or thostatic sitting] 115/88 Blood Pressure [or thostatic standing ] 106/84 Pulse Oximetry 96 99 Oxygen Delivery Me thod 03/23/25 10:46 03/23/25 11:00 03/23/25 11:01 Temperature Pulse Rate 109 H 72 83 Pulse Rate [Pulse Oximeter] Respiratory Rate 15 8 L Blood Pressure 106/84 128/91 H Blood Pressure [Ri ght Upper Arm] Blood Pressure [or thostatic lying] Blood Pressure [or thostatic sitting] Blood Pressure [or thostatic standing ] Pulse Oximetry 98 98 98 Oxygen Delivery Me thod Room Air 03/23/25 11:02 03/23/25 11:15 03/23/25 11:30 Temperature Pulse Rate 78 85 86 Pulse Rate [Pulse Oximeter] Respiratory Rate 18 Blood Pressure Blood Pressure [Ri ght Upper Arm] Blood Pressure [or thostatic lying] Blood Pressure [or thostatic sitting] Blood Pressure [or thostatic standing ] Pulse Oximetry 98 98 98 Oxygen Delivery Me thod 03/23/25 11:32 03/23/25 11:45 03/23/25 12:00 Temperature Pulse Rate 91 87 86 Pulse Rate [Pulse Oximeter] Respiratory Rate 14 24 12 Blood Pressure 122/89 Blood Pressure [Ri ght Upper Arm] Blood Pressure [or thostatic lying] Blood Pressure [or thostatic sitting] Blood Pressure [or thostatic standing ] Pulse Oximetry 99 98 98 Oxygen Delivery Me thod Room Air 03/23/25 12:01 03/23/25 12:15 03/23/25 12:30 Temperature Pulse Rate 91 87 95 Pulse Rate [Pulse Oximeter] Respiratory Rate 14 14 10 L Blood Pressure 138/99 H Blood Pressure [Ri ght Upper Arm] Blood Pressure [or thostatic lying] Blood Pressure [or thostatic sitting] Blood Pressure [or thostatic standing ] Pulse Oximetry 98 93 99 Oxygen Delivery Me thod Room Air 03/23/25 12:31 03/23/25 12:45 03/23/25 13:44 Temperature Pulse Rate 99 101 H Pulse Rate [Pulse Oximeter] Respiratory Rate 15 15 34 H Blood Pressure 118/89 Blood Pressure [Ri ght Upper Arm] Blood Pressure [or thostatic lying] Blood Pressure [or thostatic sitting] Blood Pressure [or thostatic standing ] Pulse Oximetry 98 98 Oxygen Delivery Me thod Documenting provider has reviewed patient's vital signs: yes Course Vital Signs Vital signs: Initial Vital Signs Temperature 98.1 F 03/23/25 07:57 Temperature Source Temporal Artery Scan 03/23/25 07:57 Pulse Rate 64 03/23/25 07:57 Respiratory Rate 20 03/23/25 07:57 Blood Pressure 123/85 03/23/25 07:57 Blood Pressure Mean 97 03/23/25 07:57 Pulse Oximetry 98 03/23/25 07:57 Oxygen Delivery Method Room Air 03/23/25 07:57 Vital Signs Temperature 98.1 F 03/23/25 07:57 Pulse Rate 64 03/23/25 07:57 Respiratory Rate 20 03/23/25 07:57 Blood Pressure 123/85 03/23/25 07:57 Pulse Oximetry 98 03/23/25 07:57 Oxygen Delivery Method Room Air 03/23/25 07:57 Temperature 98.1 F 03/23/25 07:57 Pulse Rate 101 H 03/23/25 12:45 Respiratory Rate 34 H 03/23/25 13:44 Blood Pressure 118/89 03/23/25 12:31 Pulse Oximetry 98 03/23/25 12:45 Oxygen Delivery Method Room Air 03/23/25 12:01 Medications Administered Medications: Discontinued Medications Generic Name Dose Route Start Last Admin Trade Name Freq PRN Reason Stop Dose Admin Sodium Chloride 500 mls @ 500 mls/hr 03/23/25 08:28 03/23/25 10:41 0.9 % Sodium Chloride 500 Ml IV 03/23/25 09:27 Infused .Q1H ONE Infusion Medical Decision Making MDM Narrative Medical decision making narrative: Initial impression is cardiac or pulmonary etiology. Does have this apparent non-STEMI history as well. I suspect this syncope today was cardiogenic related to rhythm. Reviewing records looks like history of non-STEMI but with mild findings on workup otherwise. Rhythm monitoring showed only 5 beats of V-tach at that time. Did obtain EKG confirming atrial fibrillation with RVR. Nursing reporting a going in and out of atrial fibrillation. I go to assess and still is with atrial fibrillation in the 90s. He is noting chest discomfort primarily when he lies down. Is not short of breath. Wants to sit up so because it is more comfortable. He had been requesting to leave again but this more comfortable staying after some concerns regarding insurance/coverage are allayed. D-dimer is slightly elevated for age 0.65. With the symptoms will be scanning chest looking for potential pulmonary embolus. Radiology over-read of CT as below INDICATION: Syncope, chest pain, elevated D-dimer. Suspect PE. TECHNIQUE: CT chest PE was acquired with 95 mL of Isovue 370 contrast. 3D MIP images were performed by the technologist and the radiologist workstation. COMPARISON: None. FINDINGS: Pulmonary Arteries: No pulmonary emboli. No arterial dilation. Aorta: No aneurysm or ulcerating plaques. Heart: Heart size is normal. No pericardial effusion. Lungs: Mild centrilobular and paraseptal emphysematous changes. Mild bronchial wall thickening. No suspicious nodules or infiltrates. Pleura: No pleural effusions, pleural thickening, or pneumothorax. Lymph nodes/mediastinum: No mediastinal, hilar, or axillary adenopathy. Retrosternal thyroid. Chest wall: No masses. Upper abdomen: Normal. Bones: Unremarkable for age. IMPRESSION: : 1. No pulmonary emboli or acute intrathoracic abnormalities. 2. Mild centrilobular and paraseptal emphysema. Please note that all CT scans at this facility use dose modulation, iterative reconstruction, and/or weight-based dosing when appropriate to reduce radiation dose to as low as reasonably achievable. Dictated by Azeem Burgos MD @ 03/23/2025 10:01:44 AM Troponin over time of observation emergency department is essentially flat. Has remained in the 90s for heart rate and in atrial fibrillation most the time. I believe initially was going in and out of atrial fibrillation perhaps. Initial rate on triage was 64 by the time I am examining he is in the 120s and in atrial fibrillation. Would not cardiovert. Discuss this case with Cardiology. Concern expressed of potential conversion pause as source but ultimately unclear. Would recommend observation and cardiac monitoring. And discharge with some days of further monitoring. Would consider beta-lauren but will want to be sure that would not exacerbate a pause or that he is with cardiomyopathy. Recommendations otherwise are to discontinue hydrochlorothiazide, start apixaban and a statin. I discussed this with Mr. Zapata. Is reluctant to make medication changes related to prior medications noting that his blood pressure is finally come down from the 180 systolic at that been before having worked with his doctor for a long time and settled on current medication regimen. Orthostatics here today goes from 90s lying to standing over 130 in pulse. Was otherwise asymptomatic We are able to do an echocardiogram here today. Am able to coax him into staying yet for an echocardiogram and then to consider next steps. Echocardiogram was missing from workup last time. Mr. 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 Discussed that would need to leave AMA. Also discussed that is not to drive at this time and needs to report this syncopal event; he indicated that he was aware of this. I did discuss results of echocardiogram with technologist. Reviewed images. Cardiology also was able to review images. No evidence of cardiomyopathy here. Awaiting formal read. Troponins have been flat. After further discussion Mr. Zapata is now willing to stay for longer-term monitoring. Begin anticoagulation with Eliquis. Anticipating conversation with hospitalist for admission. Medical Records Medical records reviewed: Yes I reviewed the patient's medical records Lab Data Lab results reviewed: Yes I reviewed the patient's lab results Labs: Lab Results 03/23/25 03/23/25 03/23/25 Range/Units 08:28 08:46 11:06 WBC 9.47 (4.50-11.00) K/uL RBC 5.08 (4.30-5.90) m/uL Hgb 16.1 (13.5-17.5) gm/dL Hct 48.7 (37.0-53.0) % MCV 96 (80-100) fL MCH 32 (26-34) pg MCHC 33 (32-36) gm/dL RDW Coeff of Garrett 13.1 (11.5-15.5) % Plt Count 278 (140-440) K/uL Neut % (Auto) 61.3 (42.0-72.0) % Lymph % (Auto) 29.3 (20-44) % [place] % (Auto) 8.7 (0.0-11.0) % Eos % (Auto) 0.3 (0.0-7.0) % Baso % (Auto) 0.2 (0.0-3.0) % Neut # (Auto) 5.81 (1.7-7.0) K/uL Lymph # (Auto) 2.77 (0.90-2.90) K/uL [place] # (Auto) 0.80 (0.00-0.90) K/UL Eos # (Auto) 0.03 (0.00-0.50) K/uL Baso # (Auto) 0.02 (0.00-0.30) K/uL Abs Immat Gran (auto) 0.02 (0.00-0.30) K/uL Imm/Tot Granulo (auto) 0.2 % D-Dimer Quant (PE/DVT) 0.65 H (0.00-0.50) ug/ml Sodium 139 (135-149) mmol/L Potassium 3.8 (3.6-5.1) mmol/L Chloride 102 (96-114) mmol/L Carbon Dioxide 27 (20-32) mmol/L Anion Gap 10 (7-15) mEq/L BUN 22 (7-30) mg/dL Creatinine 1.3 (0.5-1.5) mg/dL Estimated GFR 63 ml/min Glucose 123 H (60-115) mg/dL Calcium 9.2 (8.4-10.6) mg/dL Magnesium 2.0 (1.5-2.6) mg/dL Troponin I < 0.01 (0.01-0.04) ng/mL NT-Pro-B Natriuret Pep < 20 (See Note) pg/mL Lab Acknowledgement Test Added POC Troponin I 0.01 0.04 (0.01-0.04) ng/ml 03/23/25 Range/Units 12:35 WBC (4.50-11.00) K/uL RBC (4.30-5.90) m/uL Hgb (13.5-17.5) gm/dL Hct (37.0-53.0) % MCV (80-100) fL MCH (26-34) pg MCHC (32-36) gm/dL RDW Coeff of Garrett (11.5-15.5) % Plt Count (140-440) K/uL Neut % (Auto) (42.0-72.0) % Lymph % (Auto) (20-44) % [place] % (Auto) (0.0-11.0) % Eos % (Auto) (0.0-7.0) % Baso % (Auto) (0.0-3.0) % Neut # (Auto) (1.7-7.0) K/uL Lymph # (Auto) (0.90-2.90) K/uL [place] # (Auto) (0.00-0.90) K/UL Eos # (Auto) (0.00-0.50) K/uL Baso # (Auto) (0.00-0.30) K/uL Abs Immat Gran (auto) (0.00-0.30) K/uL Imm/Tot Granulo (auto) % D-Dimer Quant (PE/DVT) (0.00-0.50) ug/ml Sodium (135-149) mmol/L Potassium (3.6-5.1) mmol/L Chloride (96-114) mmol/L Carbon Dioxide (20-32) mmol/L Anion Gap (7-15) mEq/L BUN (7-30) mg/dL Creatinine (0.5-1.5) mg/dL Estimated GFR ml/min Glucose (60-115) mg/dL Calcium (8.4-10.6) mg/dL Magnesium (1.5-2.6) mg/dL Troponin I (0.01-0.04) ng/mL NT-Pro-B Natriuret Pep (See Note) pg/mL Lab Acknowledgement POC Troponin I 0.03 (0.01-0.04) ng/ml ECG Data Attestation: I personally reviewed and interpreted this ECG as follows: (Initial EKG show atrial fibrillation with RVR at 113 and 115 respectively.) Discharge Plan Discharge Clinical Impression: Syncope, Atrial fibrillation with rapid ventricular response, Paroxysmal A-fib Patient Disposition: Admitted As Observation Condition: Stable
--- NOTE | 2025-03-23 08:28 | CRLHL7_ITS ---
For Patients: As a result of the Century Cures Act, medical imaging exams and procedure reports are released immediately into your electronic medical record. You may view this report before your referring provider. If you have questions, please contact your health care provider. INDICATION: Fall. Closed head injury. Right forehead eye injury TECHNIQUE: CT head without contrast. COMPARISON: None FINDINGS: CSF spaces: Within normal limits for age. No fluid collections. Ventricles: Commensurate with sulci. No Hydrocephalus. Brain parenchyma: No mass lesion, hemorrhage, or acute infarction. The smith-white differentiation is normal. Multifocal areas of decreased attenuation in the white matter are non-specific but consistent with small vessel/ischemic changes. Midline Structures: Normal. No shift. Orbits: Mild right preseptal swelling. No intraorbital abnormalities. Vessels: Atherosclerotic calcifications. Paranasal sinuses: Small mucous retention cyst left maxillary sinus. The sinuses are otherwise clear. Mastoid sinuses: Normal. Skull base and calvarium: No fractures or significant abnormalities. IMPRESSION: 1. No acute intracranial abnormalities. Please note that all CT scans at this facility use dose modulation, iterative reconstruction, and/or weight-based dosing when appropriate to reduce radiation dose to as low as reasonably achievable. Dictated by Azeem Burgos MD @ 03/23/2025 9:20:33 AM (Electronically Signed)
[2025-03-23 09:01] LABS: Hematocrit* 48.7 % (37.0-53.0); Hemoglobin* 16.1 gm/dL (13.5-17.5); Immature Granulocytes Abs Auto 0.02 K/uL (0.00-0.30); Immature Granulocytes Pct Auto 0.2 %; Lymphocytes Absolute Auto 2.77 K/uL (0.90-2.90); Mean Corpuscular HGB Conc 33 gm/dL (32-36); Mean Corpuscular Hemoglobin 32 pg (26-34); Mean Corpuscular Volume 96 fL (80-100); RDW Coefficient of Variation % 13.1 % (11.5-15.5); Red Blood Count* 5.08 m/uL (4.30-5.90); White Blood Count* 9.47 K/uL (4.50-11.00)
[2025-03-23 09:11] LABS: Slide Review Reflex No
[2025-03-23 09:12] LABS: Chloride* 102 mmol/L (96-114); Potassium* 3.8 mmol/L (3.6-5.1); Sodium* 139 mmol/L (135-149)
[2025-03-23 09:14] LABS: Troponin, Point-of-Care* 0.01 ng/ml (0.01-0.04)
[2025-03-23 09:15] LABS: Anion Gap 10 mEq/L (7-15); Blood Urea Nitrogen* 22 mg/dL (7-30); Calcium* 9.2 mg/dL (8.4-10.6); Carbon Dioxide* 27 mmol/L (20-32); Creatinine* 1.3 mg/dL (0.5-1.5); Estimated Glomerular Filt Rate 63 ml/min; Glucose* 123 mg/dL (60-115)
[2025-03-23 09:19] LABS: D Dimer Quantitative* 0.65 ug/ml (0.00-0.50)
[2025-03-23 09:27] LABS: NT Pro B Type NatriureticPept* < 20 pg/mL (See Note)
[2025-03-23] MEDS: 0.9 % SODIUM CHLORIDE 500 ML 500 ML IV (09:30)
--- NOTE | 2025-03-23 09:30 | CRLHL7_ITS ---
For Patients: As a result of the Century Cures Act, medical imaging exams and procedure reports are released immediately into your electronic medical record. You may view this report before your referring provider. If you have questions, please contact your health care provider. INDICATION: Syncope, chest pain, elevated D-dimer. Suspect PE. TECHNIQUE: CT chest PE was acquired with 95 mL of Isovue 370 contrast. 3D MIP images were performed by the technologist and the radiologist workstation. COMPARISON: None. FINDINGS: Pulmonary Arteries: No pulmonary emboli. No arterial dilation. Aorta: No aneurysm or ulcerating plaques. Heart: Heart size is normal. No pericardial effusion. Lungs: Mild centrilobular and paraseptal emphysematous changes. Mild bronchial wall thickening. No suspicious nodules or infiltrates. Pleura: No pleural effusions, pleural thickening, or pneumothorax. Lymph nodes/mediastinum: No mediastinal, hilar, or axillary adenopathy. Retrosternal thyroid. Chest wall: No masses. Upper abdomen: Normal. Bones: Unremarkable for age. IMPRESSION: : 1. No pulmonary emboli or acute intrathoracic abnormalities. 2. Mild centrilobular and paraseptal emphysema. Please note that all CT scans at this facility use dose modulation, iterative reconstruction, and/or weight-based dosing when appropriate to reduce radiation dose to as low as reasonably achievable. Dictated by Azeem Burgos MD @ 03/23/2025 10:01:44 AM (Electronically Signed)
[2025-03-23 11:49] LABS: Troponin, Point-of-Care* 0.04 ng/ml (0.01-0.04)
[2025-03-23 13:19] LABS: Troponin, Point-of-Care* 0.03 ng/ml (0.01-0.04)
[2025-03-23] MEDS: APIXABAN 5 MG TABLET PO ×2 (15:18→20:58)
--- NOTE | 2025-03-23 15:29 | PM.IMHP1 ---
Assessment and Plan Assessment and plan (1) Syncope: Problem comment: -previous full syncopal episode approximately 3 years ago -reports presyncopal episodes at least once a week for the past 3 years - described as hot burning in the chest and flushing through the face - typically tries to cool down with a fan, removing clothing, or going outdoors -concern for cardiac etiology -NO DRIVING for at least 3 months or until etiology of syncope is understood CT coronary angiogram (2020) 1. Mild coronary artery atherosclerosis without obstructive stenosis. 2. RCA has a high takeoff from the sinotubular junction of the right coronary cusp. 3. Coronary calcium score is 1. 4. No evidence of epicardial coronary artery stenosis to explain patient's symptoms. ECHO 03/23/2025 Final Impressions: 1. Normal LV size, mildly increased wall thickness, normal global systolic function with an estimated EF of 70 - 75%. 2. No significant valve disease detected. 3. The inferior vena cava is small sized, respiratory size variation not well visualized. Status: Acute (2) Atrial fibrillation with rapid ventricular response: Problem comment: -paroxysmal -noted on EKG in ED; previous EKGs NSR, scotty (58) -HR 64-119 -now in sinus rhythm (no rate control meds given) -first trop <0.01, repeat ordered; CTA chest negative for PE -ED provider discussed with [facility] cardiology with following recommendations: Lopressor as needed for fast rates > 110 TTE - completed in ED, results as above Eliquis - started 5mg bid Tele 24 hours - h/o Vtach on Ziopatch 05/2021 Statin for noncalcified plaque Concern to start bblocker as unable to say this wasn't a slow pause or tachy or orthostasis Outpatient Cardiology follow up Status: Acute (3) Multiple abrasions: Problem comment: -right side scalp, face, shoulder -wound cares -CT head without acute abnormalities -right shoulder pain limited to abrasion site, no joint pain, AROM intact - declines x-ray Status: Acute (4) Hyperlipidemia: Problem comment: -Cardiology recommending starting statin for noncalcified plaque -lipid panel ordered -> ASCVD score pending results to determine statin need Status: Acute (5) Hypertension: Problem comment: -continue lisinopril, hold HCTZ for now Status: Acute Total Time Spent Total Time Spent: Today I spent 75 minutes seeing the patient, reviewing Expanse and EPIC notes/diagnostics, discussing the care plan with our care time that includes social work, PT/OT, pharmacy, RT, detention and documenting my impressions and plan in the medical record. Hospitalist- H&P: HPI History of Present Illness Date Seen: 03/23/25 Chief complaint: Syncopal, fall, hit head Narrative: Sixto Zapata is a 59 year old male past medical history significant for hypertension, history of NSTEMI 2020, history V-tach 2021, heartburn is admitted to the medical floor from the ED following a syncopal episode and new finding of atrial fibrillation. Patient reports being at work and feeling a hot flushing, burning sensation in his chest, rising to his face. He was wearing a couple of layers of clothing so took 2 of his jacket off. We then went outside and pressed his forehead against the cement wall to trying cool it down. When this did not help he attempted to walk to a nearby picnic table but awoke with someone assisting him. He was told he fell on his right side which is consistent with abrasions to the right side of the scalp, right side of face, and his right shoulder. He denies current headache or neck pain. Denies chest pain or shortness of breath. Tells me his right shoulder hurts where the abrasion is otherwise denies any shoulder joint pain at rest or with range of motion. Patient reports he had a syncopal episode approximately 3 years ago. Otherwise in the past 3 years he has had presyncopal episodes, telling me these have been on a weekly basis as of late. Describes them as similar with a burning hot sensation in the chest and a flushing of the face. He typically tries to close down using a fan or by removing clothing layers. No recent cough or cold symptoms. No recent fevers. No recent nausea vomiting or diarrhea. PCP is Dr. Avelar at [facility]. Smokes 1 pack per week. No alcohol use. Review of Systems Narrative: REVIEW OF SYSTEMS: Complete review of systems performed and negative unless otherwise stated in HPI or below. Medical Decision Making Medical Decision Making Code Status: Full code Has patient completed a Health Care Directive: No PFSH [facility] Medical History V tach ?I47.20 - Ventricular tachycardia, unspecified (ICD-10) Tobacco dependence ?F17.200 - Nicotine dependence, unspecified, uncomplicated (ICD-10) Heartburn ?R12 - Heartburn (ICD-10) Hyperlipidemia ?E78.5 - Hyperlipidemia, unspecified (ICD-10) Hypertension ?I10 - Essential (primary) hypertension (ICD-10) Non-ST elevation myocardial infarction (NSTEMI) ?I21.4 - Non-ST elevation (NSTEMI) myocardial infarction (ICD-10) Surgical History Status post cholecystectomy ?Z90.49 - Acquired absence of other specified parts of digestive tract (ICD-10) De Quervain's tenosynovitis, left (12/05/22) ?M65.4 - Radial styloid tenosynovitis [de Quervain] (ICD-10) Social History Narrative: The patient previously smoked approximately half a pack a day but has stopped for the last 2 months. 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 What is your current living situation?: I presently have a place to live Problems where you live: no known problems Problems where you live details: none In the past 12 months, utilities in danger of being shut off: yes In past 12 months, lack of transportation kept you from medical appts, meetings, work, or getting things needed for daily living: yes In the past 12 mos, have been you worried that your food would run out before you had money to buy more?: never true In the past 12 mos, the food you bought just didn't last and you didn't have money to buy more?: never true Highest level of school completed/degree received: Bachelor's degree Smoking Status: Former smoker What tobacco products do you use: cigarettes Smoking packs per day: 0.5 Smoking cigarettes per day: 10.0 Years smoked: 40 Smoking pack-years: 20.00 Smoking quit date/years: <= 15 years ago Do you use any of these nicotine containing products: None Second hand tobacco smoke exposure: No How often do you have a drink containing alcohol: never How often do you have six or more drinks on one occasion: Never AUDIT-C Alcohol total score: 0 Non-prescribed substance use: denies use Caffeine: No How often does anyone, including family, friends and others, physically hurt you: never How often does anyone, including family, friends and others, insult or talk down to you: never How often does anyone, including family, friends and others, threaten you with harm: never How often does anyone, including family, friends and others, scream or curse at you: never service: Yes Health Related Social Needs: transportation insecurity (Z59.82) Meds Home Medications and Allergies Home Medications ?Medication ?Instructions ?Recorded ?Confirmed ?Type hydrochlorothiazide 25 mg tablet 25 mg PO DAILY 07/09/24 03/23/25 History lisinopril 40 mg tablet 40 mg PO DAILY 07/09/24 03/23/25 History calcium carbonate (Calcium Antacid) 600 mg PO DAILY PRN 03/23/25 03/23/25 History Allergies Allergy/AdvReac Type Severity Reaction Status Date / Time No Known Drug Allergies Allergy Verified 03/23/25 07:54 Exam Narrative: Exam Narrative: PHYSICAL EXAM General: Pleasant, conversant, NAD HEENT: Normocephalic, superficial abrasion noted right cheek, right scalp Cardiovascular: RRR, currently in sinus rhythm. No pitting edema Pulmonary: CTA bilaterally without rhonchi, rales, expiratory wheezes. No dyspnea on room air Abdominal: Soft, nondistended, NTTP Neurological: Alert, answering questions appropriately, cranial nerves intact, no focal findings Extremities: No gross joint deformity or swelling. AROMI. Superficial abrasion noted right shoulder. Neurovascularly intact Skin: Warm, dry. Const: Vital Signs, click to edit/add: Vital Signs - 24 hr 03/23/25 07:57 03/23/25 08:29 03/23/25 08:45 Temperature 98.1 F Pulse Rate 97 Pulse Rate [Pulse Oximeter] 64 Respiratory Rate 20 16 Blood Pressure 102/80 Blood Pressure [Ri ght Upper Arm] 123/85 Blood Pressure [or thostatic lying] Blood Pressure [or thostatic sitting] Blood Pressure [or thostatic standing ] Pulse Oximetry 98 96 97 Oxygen Delivery Me thod Room Air 03/23/25 08:46 03/23/25 08:47 03/23/25 08:48 Temperature Pulse Rate 93 96 97 Pulse Rate [Pulse Oximeter] Respiratory Rate 17 9 L Blood Pressure 130/88 Blood Pressure [Ri ght Upper Arm] Blood Pressure [or thostatic lying] Blood Pressure [or thostatic sitting] Blood Pressure [or thostatic standing ] Pulse Oximetry 100 99 Oxygen Delivery Me thod 03/23/25 09:04 03/23/25 09:05 03/23/25 09:15 Temperature Pulse Rate 101 H 113 H 90 Pulse Rate [Pulse Oximeter] Respiratory Rate 13 17 23 Blood Pressure 116/106 H Blood Pressure [Ri ght Upper Arm] Blood Pressure [or thostatic lying] Blood Pressure [or thostatic sitting] Blood Pressure [or thostatic standing ] Pulse Oximetry 99 98 96 Oxygen Delivery Me thod 03/23/25 09:30 03/23/25 09:31 03/23/25 09:57 Temperature Pulse Rate 106 H 99 110 H Pulse Rate [Pulse Oximeter] Respiratory Rate 9 L 19 25 H Blood Pressure 133/105 H Blood Pressure [Ri ght Upper Arm] Blood Pressure [or thostatic lying] Blood Pressure [or thostatic sitting] Blood Pressure [or thostatic standing ] Pulse Oximetry 99 98 98 Oxygen Delivery Ma thod 03/23/25 10:00 03/23/25 10:01 03/23/25 10:15 Temperature Pulse Rate 103 H 92 93 Pulse Rate [Pulse Oximeter] Respiratory Rate 10 L 5 L 7 L Blood Pressure 129/99 H Blood Pressure [Ri ght Upper Arm] Blood Pressure [or thostatic lying] Blood Pressure [or thostatic sitting] Blood Pressure [or thostatic standing ] Pulse Oximetry 97 98 98 [facility] 03/23/25 10:30 03/23/25 10:31 03/23/25 10:41 Temperature Pulse Rate 91 88 98 Pulse Rate [Pulse Oximeter] Respiratory Rate 25 H 0 L 17 Blood Pressure 117/91 H 119/91 H Blood Pressure [Ri ght Upper Arm] Blood Pressure [or thostatic lying] Blood Pressure [or thostatic sitting] Blood Pressure [or thostatic standing ] Pulse Oximetry 93 98 97 Oxygen Delivery Me thod 03/23/25 10:42 03/23/25 10:44 03/23/25 10:45 Temperature Pulse Rate 119 H 106 H Pulse Rate [Pulse Oximeter] Respiratory Rate 15 16 Blood Pressure 115/88 Blood Pressure [Ri ght Upper Arm] Blood Pressure [or thostatic lying] 119/91 H Blood Pressure [or thostatic sitting] 115/88 Blood Pressure [or thostatic standing ] 106/84 Pulse Oximetry 96 99 Oxygen Delivery Me thod 03/23/25 10:46 03/23/25 11:00 03/23/25 11:01 Temperature Pulse Rate 109 H 72 83 Pulse Rate [Pulse Oximeter] Respiratory Rate 15 8 L Blood Pressure 106/84 128/91 H Blood Pressure [Ri ght Upper Arm] Blood Pressure [or thostatic lying] Blood Pressure [or thostatic sitting] Blood Pressure [or thostatic standing ] Pulse Oximetry 98 98 98 Oxygen Delivery Me thod Room Air 03/23/25 11:02 03/23/25 11:15 03/23/25 11:30 Temperature Pulse Rate 78 85 86 Pulse Rate [Pulse Oximeter] Respiratory Rate 18 Blood Pressure Blood Pressure [Ri ght Upper Arm] Blood Pressure [or thostatic lying] Blood Pressure [or thostatic sitting] Blood Pressure [or thostatic standing ] Pulse Oximetry 98 98 98 Oxygen Delivery Me thod 03/23/25 11:32 03/23/25 11:45 03/23/25 12:00 Temperature Pulse Rate 91 87 86 Pulse Rate [Pulse Oximeter] Respiratory Rate 14 24 12 Blood Pressure 122/89 Blood Pressure [Ri ght Upper Arm] Blood Pressure [or thostatic lying] Blood Pressure [or thostatic sitting] Blood Pressure [or thostatic standing ] Pulse Oximetry 99 98 98 Oxygen Delivery Me thod Room Air 03/23/25 12:01 03/23/25 12:15 03/23/25 12:30 Temperature Pulse Rate 91 87 95 Pulse Rate [Pulse Oximeter] Respiratory Rate 14 14 10 L Blood Pressure 138/99 H Blood Pressure [Ri ght Upper Arm] Blood Pressure [or thostatic lying] Blood Pressure [or thostatic sitting] Blood Pressure [or thostatic standing ] Pulse Oximetry 98 93 99 Oxygen Delivery Me thod Room Air 03/23/25 12:31 03/23/25 12:45 03/23/25 13:44 Temperature Pulse Rate 99 101 H Pulse Rate [Pulse Oximeter] Respiratory Rate 15 15 34 H Blood Pressure 118/89 Blood Pressure [Ri ght Upper Arm] Blood Pressure [or thostatic lying] Blood Pressure [or thostatic sitting] Blood Pressure [or thostatic standing ] Pulse Oximetry 98 98 Oxygen Delivery Ma thod Hospitalist - H&P: Result Labs Labs: Short CBC 03/23/25 Range/Units 08:46 WBC 9.47 (4.50-11.00) K/uL Hgb 16.1 (13.5-17.5) gm/dL Hct 48.7 (37.0-53.0) % Plt Count 278 (140-440) K/uL BMP 03/23/25 08:46 Sodium 139 Potassium 3.8 Chloride 102 Carbon Dioxide 27 BUN 22 Creatinine 1.3 Glucose 123 H Calcium 9.2 Cardiac Enzymes 03/23/25 Range/Units 08:46 Troponin I < 0.01 (0.01-0.04) ng/mL ECG Attestation: I personally reviewed and interpreted this ECG as follows: Interpretation: AFib, rates 105-113 Imaging CTA chest: Attestation: I have reviewed the pertinent imaging results. Radiologist's impression: ulmonary Arteries: No pulmonary emboli. No arterial dilation. Aorta: No aneurysm or ulcerating plaques. Heart: Heart size is normal. No pericardial effusion. Lungs: Mild centrilobular and paraseptal emphysematous changes. Mild bronchial wall thickening. No suspicious nodules or infiltrates. Pleura: No pleural effusions, pleural thickening, or pneumothorax. Lymph nodes/mediastinum: No mediastinal, hilar, or axillary adenopathy. Retrosternal thyroid. Chest wall: No masses. Upper abdomen: Normal. Bones: Unremarkable for age. IMPRESSION: : 1. No pulmonary emboli or acute intrathoracic abnormalities. 2. Mild centrilobular and paraseptal emphysema. CT scan - head: Attestation: I have reviewed the pertinent imaging results. Radiologist's impression: CSF spaces: Within normal limits for age. No fluid collections. Ventricles: Commensurate with sulci. No Hydrocephalus. Brain parenchyma: No mass lesion, hemorrhage, or acute infarction. The smith-white differentiation is normal. Multifocal areas of decreased attenuation in the white matter are non-specific but consistent with small vessel/ischemic changes. Midline Structures: Normal. No shift. Orbits: Mild right preseptal swelling. No intraorbital abnormalities. Vessels: Atherosclerotic calcifications. Paranasal sinuses: Small mucous retention cyst left maxillary sinus. The sinuses are otherwise clear. Mastoid sinuses: Normal. Skull base and calvarium: No fractures or significant abnormalities. IMPRESSION: 1. No acute intracranial abnormalities.
[2025-03-23] MEDS: ACETAMINOPHEN 325 MG TABLET 975 MG PO (18:24)
[2025-03-23] MEDS: SODIUM CHLORIDE 0.9 % (FLUSH) 10 ML SYRINGE 5 ML IVF (20:58)
[2025-03-24] VITALS (8 sets, daily range): BP systolic 103–117; BP diastolic 67–85; PULSE 63–95; RESP 12–20; TEMP 35.8–36.4; O2SAT 95–98
--- NOTE | 2025-03-24 00:04 | PC.NURSE ---
End of Shift: Patient pleasant and cooperative. Afebrile. Tele showing NSR. C/o headache and PRN Tylenol given x1. Denies any chest pain or burning in chest. Up with SBA. Tolerating regular diet with no nausea.
[2025-03-24] MEDS: CALCIUM CARBONATE 500 MG CHEW 1500 MG PO (03:38)
[2025-03-24 04:34] LABS: Chloride* 104 mmol/L (96-114); Potassium* 3.6 mmol/L (3.6-5.1); Sodium* 139 mmol/L (135-149)
[2025-03-24 04:36] LABS: Blood Urea Nitrogen* 26 mg/dL (7-30); Creatinine* 1.2 mg/dL (0.5-1.5); Est. Creatinine Clearance* 76.11; Estimated Glomerular Filt Rate 69 ml/min
[2025-03-24 04:37] LABS: Anion Gap 5 mEq/L (7-15); Calcium* 9.2 mg/dL (8.4-10.6); Carbon Dioxide* 30 mmol/L (20-32); Cholesterol* 165 mg/dL (90-199); Glucose* 102 mg/dL (60-115); HDL Cholesterol* 28 mg/dL (>=40); Triglycerides* 129 mg/dL (40-149)
--- NOTE | 2025-03-24 04:56 | PC.NURSE ---
Pt AOx4. VSS. Pt is able to make needs known and receptive to care and education. Pt has lacerations from pre-admission fall, mepilex dressings C/D/I. pump erector helper walked into room to find pt kneeling beside bed. Pt reported he ?did this to relieve chest pain and cool down.? EKG performed, VS re-taken, and MD Cardona bedside for assessment. New orders provided; see EMAR. Pt tolerated ice pack to chest for relief. Pt verbalized improvement in chest discomfort after med and ice administration. Tele in place, NSR. Pt. denies SOB and dizziness.
--- NOTE | 2025-03-24 07:24 | PC.NURSE ---
Pt AOx4. Pt reports pain >4 throughout shift; managed by pain meds and ice- see EMAR. Pt reports ?not being able to move his legs.? Bilateral swelling and warmth of knees; active ice applied and elevated. Pt able to dorsiflex and extend ankles. SCDs tolerated intermittently. Pt demonstrates notable pain when being repositioned or moved by yelling out. Pt using urinal throughout HS. Pt encouraged to get up to AMB to BR and refuses due to inability to ?move his legs.? PA notified, PA in to visit w/ pt bedside this morning. New pain med and positioning orders provided; see EMAR.
[2025-03-24] MEDS: APIXABAN 5 MG TABLET PO (09:12)
[2025-03-24] MEDS: SODIUM CHLORIDE 0.9 % (FLUSH) 10 ML SYRINGE 5 ML IVF (09:13)
--- NOTE | 2025-03-24 12:39 | P.DS_ITS ---
DS: Providers Provider Time Seen by Provider: 12:39 Date Seen: 03/24/25 Date of admission: 03/23/25 15:36 Primary care physician: Not a Local Provider Admitting Clinician: Cristina Boyd MD Attending Physician on discharge: Emmanuel Nugent MD Date of Discharge: 03/24/25 DS: Diagnosis Discharge Diagnosis (1) Atrial fibrillation with rapid ventricular response: Status: Acute Problem details: -noted on EKG in ED; previous EKGs NSR, scotty (58) -HR 64-119 -now in sinus rhythm (no rate control meds given) -first trop <0.01, repeat 0.02; CTA chest negative for PE -ED provider discussed with [facility] cardiology with following recommendations: Lopressor as needed for fast rates > 110 TTE - completed in ED, results as above Eliquis - started 5mg bid Tele 24 hours - h/o Vtach on Ziopatch 05/2021 Statin for noncalcified plaque Concern to start bblocker as unable to say this wasn't a slow pause or tachy or orthostasis (2) Syncope: Status: Acute Problem details: -previous full syncopal episode April 2021. -reports presyncopal episodes at least once a week for the past 3 years - described as hot burning in the chest and flushing through the face - typically tries to cool down with a fan, removing clothing, or going outdoors -concern for cardiac etiology -NO DRIVING for at least 3 months or until etiology of syncope is understood CT coronary angiogram (2020) 1. Mild coronary artery atherosclerosis without obstructive stenosis. 2. RCA has a high takeoff from the sinotubular junction of the right coronary cusp. 3. Coronary calcium score is 1. 4. No evidence of epicardial coronary artery stenosis to explain patient's symptoms. ECHO 03/23/2025 Final Impressions: 1. Normal LV size, mildly increased wall thickness, normal global systolic function with an estimated EF of 70 - 75%. 2. No significant valve disease detected. 3. The inferior vena cava is small sized, respiratory size variation not well visualized. (3) Electrocardiogram abnormal: Status: Acute Problem details: During an episode of burning in his chest at approximately 3:20 a.m. today, March 24, he had telemetry monitoring showing ST elevations in inferior l masha and ST depression and T-wave inversion in aVL lasting about 2 minutes. 8 minutes later his electrocardiogram was normal. 30 minutes after that his troponin was normal. (4) Hyperlipidemia: Status: Acute Problem details: -Cardiology recommending starting statin for noncalcified plaque -lipid panel ordered -> ASCVD score pending results to determine statin need DS: Summary Hospital Course Hospital Course: 59-year-old male admitted to the hospital after a syncopal episode at work. Patient reported onset of a burning sensation in his chest. Patient reports that he gets these episodes of burning in his chest about once a week. He resolved this by taking Tums and cooling off. At work he did this but the burning continued so he went outside and put his head on cool concrete. The next thing he knew he was laying on the ground with abrasions over his right shoulder and right face. Coworkers brought him to the hospital for evaluation. In our emergency room he was found to be in atrial fibrillation with RVR with this heart rate going into the 110s. This spontaneously resolved without intervention. March 24 at approximately 3:20 a.m. he had another episode of burning in his chest. Telemetry monitoring at time showed ST elevations in leads II, III and AVF and ST wave depression with T-wave inversion in aVL. This lasted about 2 minutes. Electrocardiogram was done about 8 minutes later and was normal. Troponin done 30 minutes after that was normal, less than 0.01. Troponin at noon today was also undetectable. March 24 at 12:55 p.m. he had another episode of burning in his chest and again had acute ST-T changes lasting a little less than 2 minutes. An episode very similar to this occurred in April of 2021. CTA at that time was relatively unremarkable. Outpatient Cardiac monitoring was relatively unremarkable except for a short 2nd run of V-tach. Since that time he reports nearly weekly episodes of burning in his chest not obviously associated with activity or food. Usually these are brief. Not associated with syncope except the episode yesterday and the episode in April 2021. Status at Discharge Functional status at discharge: independent ambulation Time Spent with Patient Time attestation: Total time spent providing and/or coordinating discharge services: 90 minutes Exam Narrative: Exam Narrative: He is alert and appears in no distress. He gives his own history. Oropharynx normal. Neck is supple without mass or adenopathy. No jugular venous distension. Respirations are clear to auscultation. No wheezing rales rhonchi. Cardiovascular: S1, S2, regular rate and rhythm. No murmur gallop or rub. Abdomen: Bowel sounds active. Abdomen is soft without tenderness or mass. Extremities without edema. Intact peripheral pulses. Const: Vital Signs, click to edit/add: Vital Signs - 24 hr 03/23/25 12:45 03/23/25 13:44 03/23/25 13:45 Temperature Pulse Rate 101 H 83 Pulse Rate [Left P ulse Oximeter] Respiratory Rate 15 34 H 7 L Blood Pressure 116/72 Blood Pressure [Ri ght Arm] Pulse Oximetry 98 98 Oxygen Delivery Me thod 03/23/25 13:46 03/23/25 14:00 03/23/25 14:01 Temperature Pulse Rate 79 86 85 Pulse Rate [Left P ulse Oximeter] Respiratory Rate 17 13 17 Blood Pressure 121/72 Blood Pressure [Ri ght Arm] Pulse Oximetry 97 94 95 Oxygen Delivery Me thod 03/23/25 14:15 03/23/25 14:30 03/23/25 14:31 Temperature Pulse Rate 87 81 85 Pulse Rate [Left P ulse Oximeter] Respiratory Rate 19 18 19 Blood Pressure 102/65 Blood Pressure [Ri ght Arm] Pulse Oximetry 95 95 96 Oxygen Delivery Me thod 03/23/25 14:47 03/23/25 15:00 03/23/25 15:01 Temperature Pulse Rate 84 87 90 Pulse Rate [Left P ulse Oximeter] Respiratory Rate 23 20 17 Blood Pressure 106/77 Blood Pressure [Ri ght Arm] Pulse Oximetry 92 94 97 Oxygen Delivery Me thod 03/23/25 15:15 03/23/25 15:30 03/23/25 15:31 Temperature Pulse Rate 80 84 87 Pulse Rate [Left P ulse Oximeter] Respiratory Rate 11 L 7 L 12 Blood Pressure 100/75 Blood Pressure [Ri ght Arm] Pulse Oximetry 98 98 98 Oxygen Delivery Me thod 03/23/25 15:40 03/23/25 15:50 03/23/25 16:51 Temperature 97.2 F L Pulse Rate 74 Pulse Rate [Left P ulse Oximeter] 80 Respiratory Rate 18 18 Blood Pressure Blood Pressure [Ri ght Arm] 131/78 Pulse Oximetry 98 98 Oxygen Delivery Me thod Room Air Room Air 03/23/25 19:00 03/24/25 00:15 03/24/25 00:19 Temperature 97.2 F L 97.6 F Pulse Rate Pulse Rate [Left P ulse Oximeter] 78 95 95 Respiratory Rate 16 16 Blood Pressure Blood Pressure [Ri ght Arm] 111/77 103/67 Pulse Oximetry 99 95 Oxygen Delivery Me thod Room Air Room Air 03/24/25 03:30 03/24/25 03:55 03/24/25 07:00 Temperature 97.6 F Pulse Rate 63 67 Pulse Rate [Left P ulse Oximeter] 70 Respiratory Rate 20 Blood Pressure Blood Pressure [Ri ght Arm] 106/72 Pulse Oximetry 97 Oxygen Delivery Me thod Room Air 03/24/25 08:00 03/24/25 11:00 Temperature 97.5 F L 96.9 F L Pulse Rate Pulse Rate [Left P ulse Oximeter] 75 72 Respiratory Rate 12 18 Blood Pressure Blood Pressure [Ri ght Arm] 113/85 117/71 Pulse Oximetry 97 96 Oxygen Delivery Me thod Room Air Room Air Documenting provider has reviewed patient's vital signs: yes DS: Data Data Completed and Pending Labs on day of discharge: Labs from last 24 hours 03/24/25 03/24/25 03/23/25 12:00 03:58 16:03 Sodium 139 Potassium 3.6 Chloride 104 Carbon Dioxide 30 Anion Gap 5 L BUN 26 Creatinine 1.2 Estimated Creat Clear 76.11 Estimated GFR 69 Glucose 102 Calcium 9.2 Troponin I Pending < 0.01 0.02 Triglycerides 129 Cholesterol 165 LDL Cholesterol, Calc 111 H HDL Cholesterol 28 L POC Troponin I 03/23/25 12:35 Sodium Potassium Chloride Carbon Dioxide Anion Gap BUN Creatinine Estimated Creat Clear Estimated GFR Glucose Calcium Troponin I Triglycerides Cholesterol LDL Cholesterol, Calc HDL Cholesterol POC Troponin I 0.[address] scan - chest: Radiologist's impression: INDICATION: Syncope, chest pain, elevated D-dimer. Suspect PE. TECHNIQUE: CT chest PE was acquired with 95 mL of Isovue 370 contrast. 3D MIP images were performed by the technologist and the radiologist workstation. COMPARISON: None. FINDINGS: Pulmonary Arteries: No pulmonary emboli. No arterial dilation. Aorta: No aneurysm or ulcerating plaques. Heart: Heart size is normal. No pericardial effusion. Lungs: Mild centrilobular and paraseptal emphysematous changes. Mild bronchial wall thickening. No suspicious nodules or infiltrates. Pleura: No pleural effusions, pleural thickening, or pneumothorax. Lymph nodes/mediastinum: No mediastinal, hilar, or axillary adenopathy. Retrosternal thyroid. Chest wall: No masses. Upper abdomen: Normal. Bones: Unremarkable for age. IMPRESSION: : 1. No pulmonary emboli or acute intrathoracic abnormalities. 2. Mild centrilobular and paraseptal emphysema. CT scan - head: Radiologist's impression: NDICATION: Fall. Closed head injury. Right forehead eye injury TECHNIQUE: CT head without contrast. COMPARISON: None FINDINGS: CSF spaces: Within normal limits for age. No fluid collections. Ventricles: Commensurate with sulci. No Hydrocephalus. Brain parenchyma: No mass lesion, hemorrhage, or acute infarction. The smith-white differentiation is normal. Multifocal areas of decreased attenuation in the white matter are non-specific but consistent with small vessel/ischemic changes. Midline Structures: Normal. No shift. Orbits: Mild right preseptal swelling. No intraorbital abnormalities. Vessels: Atherosclerotic calcifications. Paranasal sinuses: Small mucous retention cyst left maxillary sinus. The sinuses are otherwise clear. Mastoid sinuses: Normal. Skull base and calvarium: No fractures or significant abnormalities. IMPRESSION: 1. No acute intracranial abnormalities. Discharge Plan Discharge Disposition: [facility] Discharge Location: [facility] Date of Admission: 03/23/25 15:36 Attending Provider on Discharge: Wilder Nugent Primary Care Provider: Provider,Not a Local Condition: Stable Discharge Orders: Transfer of Care to Other Hospital (ORDER); Ordered 03/24/25 Ordered By: Wilder Nugent Oxygen: No
--- NOTE | 2025-03-24 13:01 | PC.NURSE ---
Pt stepped out of room into [place] to tell internal communications writer to tonio 12:55 on the board. Pt returned to room, and rested on knees with upper body on bed while internal communications writer informed Dr. Nugent and pulled telemetry reports. Handed report to Dr. Nugent as he was entering pts room to discuss.
--- NOTE | 2025-03-24 14:20 | PC.NURSE ---
Pt a/o x4 and cooperative with cares. Pt ind in room, pt had episodes of hotness, pt reported no pain. pt transferred to [place] at 1415 w/EMS. IV patent and in place, Pt had telemetry and EKG stickers in place.
== END 2025-03-24 14:15 | disposition short-term general hospital (02) | DRG 310 ==
LOC: ED 14:41 → MEDSURG 15:37
PROVIDERS: Physician Assistant; Admitting Provider Family Medicine; Emergency Provider Family Medicine; Visit Provider Student in an Organized Health Care Education/Training Program
DX: I48.0 Paroxysmal atrial fibrillation (principal); R55 Syncope and collapse; R94.31 Abnormal electrocardiogram [ECG] [EKG]; R07.89 Other chest pain; I10 Essential (primary) hypertension; W18.30XA Fall on same level, unspecified, initial encounter; S00.01XA Abrasion of scalp, initial encounter; S00.81XA Abrasion of other part of head, initial encounter; S40.211A Abrasion of right shoulder, initial encounter; F17.211 Nicotine dependence, cigarettes, in remission; I25.2 Old myocardial infarction; I25.10 Atherosclerotic heart disease of native coronary artery without angina pectoris; E78.5 Hyperlipidemia, unspecified; Z59.82 Transportation insecurity
CPT/HCPCS: 36415; 70450; 71275; 80048; 80061; 83735; 83880; 84484; 85025; 85379; 93005; 93306; 94761; 99284; 99285; A9270; G0378; J7030; Q9967

== ENCOUNTER 2025-03-24 14:09 | Outpatient (CLI) | payer OTHER, BC, SELFPAY | END 2025-03-24 14:10 | disposition home or self-care (01) | LOC: AMB 03-27 15:04 | PROVIDERS: Visit Provider Family Medicine | DX: R55 Syncope and collapse (principal); R07.9 Chest pain, unspecified; R94.31 Abnormal electrocardiogram [ECG] [EKG] | CPT/HCPCS: A0425; A0427 ==